=== PATIENT | male | born 1940 | race Caucasian/White ===

== ENCOUNTER 2019-10-23 10:38 | Emergency (ER) | payer MEDICARE, OTHER, SELFPAY ==
[2019-10-23 11:03] VITALS: BP 150/68; PULSE 58; RESP 17; TEMP 36.3; O2SAT 99; BMI 31.7
--- NOTE | 2019-10-23 12:13 | ED_ITS ---
HPI - Skin/Abscess/Foreign Bdy <NYA Cárdenas - Last Filed: 10/23/19 13:27> General Chief complaint: Skin/Abscess/Foreign Body Stated complaint: blister sores spreading x3 days Time Seen by Provider: 10/23/19 11:08 Source: patient Mode of arrival: Family Vehicle Limitations: no limitations History of Present Illness HPI narrative: 79yo male presents to the emergency department for a rash to his left groin that started approximately 48 hours ago. He reports occasional pruritus with this rash and reports blisters that appeared. He states he believes this is shingles. He reports having chickenpox in the past. He denies any other symptoms such as numbness, tingling, pain, fevers, malaise, nausea, vomiting, diarrhea, fatigue, or any other concerns. Patient states ? I got the old shingles shot but didn't get the new one. Patient states he is originally from [place] and sees a primary care provider in that state, use here for the next 3 weeks. Related Data Previous Rx's Medication Instructions Recorded valacyclovir 1,000 mg PO Q8H 7 Days #21 tab 10/23/19 Allergies Allergy/AdvReac Type Severity Reaction Status Date / Time Penicillins Allergy Unknown Verified 10/23/19 11:08 Review of Systems <NYA Cárdenas - Last Filed: 10/23/19 13:27> Review of Systems Narrative: REVIEW OF SYSTEMS: GENERAL: Denies fever or chills. HENT: Denies headaches or rhinorrhea. EYE: Denies vision changes. MUSCULOSKELETAL: Denies trauma or pain. INTEGUMENTARY: Reports rash, see HPI. Patient History <NYA Cárdenas - Last Filed: 10/23/19 13:27> Medical History Varicella (Acute) Social History Smoking Status: Former smoker Smoking Status: Former smoker alcohol intake frequency: 0-2 drinks per day Substance Use Type: does not use Exam <NYA Cárdenas - Last Filed: 10/23/19 13:27> Initial Vital Signs Initial Vital Signs: Vital Signs Temperature 97.3 F L 10/23/19 11:03 Pulse Rate 58 L 10/23/19 11:03 Respiratory Rate 17 10/23/19 11:03 Blood Pressure 150/68 H 10/23/19 11:03 Pulse Oximetry 99 10/23/19 11:03 PHYSICAL EXAMINATION: GENERAL: Alert, and cooperative. Answers questions promptly and appropriately. HENT: Normocephalic, atraumatic. RESPIRATORY: Normal respiratory rate, trachea midline, airway patent. No s tridor, nasal flaring or accessory muscle use. MUSCULOSKELETAL: Normal gait and coordination. Equal tone and mass bilaterally. EXTREMITIES: CMS intact. Moves all extremities. SKIN: Warm, dry, soft, appropriate color for ethnicity. Patches of multiple Vesicles noted on a erythematous-dark purple base on the upper thigh and superior part of groin following L1 dermatome possibly a small amounts extends to superior aspect of L2 dermatome. Rash is unilateral and does not cross midline. No vesicles noted on penis. Clear fluid filled vesicles were swabbed and a culture was sent to lab. No increased temp or tenderness to palpation of this area. NEURO: Alert and Oriented X 3. Good coordination. PSYCH: Appropriate affect and mood. <Clyde Connolly MD - Last Filed: 10/26/19 07:33> Initial Vital Signs Initial Vital Signs: Vital Signs Temperature 97.3 F L 10/23/19 11:03 Pulse Rate 58 L 10/23/19 11:03 Respiratory Rate 17 10/23/19 11:03 Blood Pressure 150/68 H 10/23/19 11:03 Pulse Oximetry 99 10/23/19 11:03 Course <NYA Cárdenas - Last Filed: 10/23/19 13:27> Vital Signs Vital signs: Vital Signs - 8 hr 10/23/19 11:03 Temperature 97.3 F L Pulse Rate 58 L Respiratory Rate 17 Blood Pressure 150/68 H Pulse Oximetry 99 <Clyde Connolly MD - Last Filed: 10/26/19 07:33> Vital Signs Vital signs: Vital Signs - 8 hr 10/23/19 11:03 Temperature 97.3 F L Pulse Rate 58 L Respiratory Rate 17 Blood Pressure 150/68 H Pulse Oximetry 99 MDM - Skin/Abscess/Foreign Bdy <NYA Cárdenas - Last Filed: 10/23/19 13:27> Medical Records Attestation: I reviewed the patient's medical records. Lab Data Attestation: I reviewed the patient's lab results. MDM Narrative Medical decision making narrative: 79-year-old male presenting to the emergency department for rash for the past 48 hours. I suspect this is most likely herpes zoster due to unilateral presentation of rash along the L1 and possibly L2 dermatome, history of previous varicella infection, reports of slight pruritus, vesicular obtained of rash. No concerns for severe rash or lesions seen on genitalia. Patient was prescribed valacyclovir and encouraged to follow-up in 1 week if symptoms continue. Less concern for cellulitis due to lack of increased time, significant erythema, tenderness today palpation, or lack of other symptoms such as fever, tachycardia, malaise, or any other concerns. Culture was sent to lab for confirmation due to slight dark purple discoloration of base of rash which may be related to skin color change in this area. Very strict return precautions given, patient agreed to plan of care verbalized understanding. Discharge Plan Departure Patient Disposition: Home Clinical Impression: Herpes zoster Qualifiers: Herpes zoster complications: without complications Qualified Code(s): B02.9 - Zoster without complications Discharge Date/Time: 10/23/19 11:45 Instructions: DI for Shingles Activity Restrictions/Additional Instructions: Thank you for entrusting me with your care today. As discussed, it appears your rash is most likely shingles. I have given you a prescription for an antiviral. Please keep the area dry and clean. The blisters will eventually drain and starter crust. Keep the area covered and do not touch the area when you are around immunocompromised individuals or women, this decreases the chance of spreading the chickenpox virus that occasionally can be spread from a shingles rash. Please be re-evaluated in 1 week if symptoms continue. Return to the emergency department for any new or worsening symptoms such worsening or spreading of the rash, increased redness, severe pain, fevers, uncontrollable vomiting, or any other concerns. Prescriptions: New valacyclovir 1 gram tablet 1,000 mg PO Q8H 7 Days Qty: 21 RF: 0
== END 2019-10-23 11:45 | disposition home or self-care (01) ==
PROVIDERS: Emergency Provider Nurse Practitioner
DX: B02.9 Zoster without complications (principal)
CPT/HCPCS: 87252; 99281; 99282

== ENCOUNTER → 2022-09-18 13:33 | Outpatient (CLI) | payer MEDICARE, OTHER, SELFPAY ==
--- NOTE | 2022-09-18 13:33 | DI.ECHO.S_ITS ---
[place] [facility]---------+ [facility] +---------+ : : [address] : : : : [id number] : : : : Phone: [phone]+ Echocardiogram Report + + :Name: AURORA FUNG Study Date: 09/18/2022 Height: 68 in : :[facility] ReadingLocation: Weight: 235 lb : : Gender: Male BSA: 2.2 m2 : :: 1940 Age: 82 yrs BP: 114/69 mmHg: :Reason For Study: CONGESTIVE HEART FAILURE, ATRIAL : :FIBRILLATION HR: 60 : :Ordering Physician: JASPER ZHAOPerformed By: GUADALUPE KUMARI : :Referring: JASPER ZHAO : + + Interpretation Summary This is a technically difficult study enhanced with Definity echocontrast. Afib with controlled rate and wide QRS complexes. Normal LV size and mild concentric LVH; mild global hypokinesis with EF 40- 45%. There is septal dyssynchrony which in the right clinical setting is due to conduction system disease. Severe LA enlargement and moderate RA enlargement. Mild MAC; otherwise no significant valvular abnormalities. Mildly dilated ascending aorta. PA systolic pressure is estimated at 33 mm Hg assuming RA pressure of 10 mm Hg. No prior study available for comparison. Procedure: A two-dimensional transthoracic echocardiogram with color flow and Doppler was performed. The study quality was technically difficult. There is no prior echocardiogram noted for this patient. A contrast injection of Definity was performed to improve assessment of LV function. The patient was in atrial fibrillation with controlled ventricular rate during the exam. Left Ventricle: The left ventricle is normal in size. Left ventricular wall thickness is mildly increased. Left ventricular systolic function is borderline reduced. The ejection fraction is estimated to be 40-45%. Right Ventricle: The right ventricle is normal size. Right ventricular systolic function is moderately reduced. Atria: The left atrium is severely dilated. The right atrium is moderately dilated. There is no Doppler evidence for an interatrial shunt. Mitral Valve: There is mild mitral annular calcification. There is mild mitral regurgitation. Aortic Valve: The aortic valve is trileaflet. The aortic valve is mildly calcified. There is no aortic valve stenosis. No aortic regurgitation is present. Tricuspid Valve: The tricuspid valve is normal. There is mild tricuspid regurgitation. Right ventricular systolic pressure is at least 23 mmHg plus right atrial pressure. Pulmonic Valve: The pulmonic valve leaflets are thin and pliable; valve motion is normal. There is mild pulmonic regurgitation. Great Vessels: The aortic root is mildly dilated. The ascending aorta is mildly enlarged. The inferior vena cava was not visualized. Pericardium/ Pleura There is a trivial pericardial effusion noted. There is no pleural effusion. MMode/2D Measurements & Calculations LVIDd: 5.7 cm LVOT diam: 2.0 cm LVIDs: 4.5 cm Ao root diam: 3.7 cm FS: 21.1 % asc Aorta Diam: 4.0 cm IVSd: 1.1 cm LVPWd: 1.2 cm LV guerra. diameter/BSA (cm/m^2): 2.6 LV sys. diameter/BSA (cm/m^2): 2.1 LA A4 area: 34.0 cm2 LVLs ap4: 8.0 cm LVLd ap2: 7.9 cm LVLs ap2: 6.8 cm Doppler Measurements & Calculations Ao V2 max: 142.0 cm/sec LVOT Max Andrew: 99.9 cm/sec Ao V2 mean: 99.7 cm/sec LV V1 max P.0 mmHg Ao max P.1 mmHg LV V1 VTI: 22.4 cm Ao mean P.0 mmHg BLANCA(I,D): 2.3 cm2 Ao V2 VTI: 30.7 cm BLANCA(V,D): 2.2 cm2 sev ratio: 0.73 BLANCA indexed to BSA (cm^2/m^2): 1.0 MV E max andrew: 99.8 cm/sec TR max andrew: 239.0 cm/sec Lat Peak E' Andrew: 3.3 cm/sec TR max P.8 mmHg E/E' lat: 30.1 PA V2 max: 96.1 cm/sec MV dec time: 0.24 sec PA V2 mean: 69.6 cm/sec PA mean P.0 mmHg PA pr(Accel): 14.2 mmHg SV(LVOT): 70.4 ml AV VR_phl: 0.70 BLANCA(VTI)/BSA_phl: 1.1 MV P1/2t-pr_phl: 70.0 msec Electronically signed by: Michelle Delgado M.D. on [place] Physician:09/19/2022 01:19 AM
== END ==
PROVIDERS: PCP Family Medicine; Referring Provider Family Medicine; Visit Provider Family Medicine
DX: I48.91 Unspecified atrial fibrillation (principal); I50.9 Heart failure, unspecified; I08.1 Rheumatic disorders of both mitral and tricuspid valves; I77.810 Thoracic aortic ectasia; I77.89 Other specified disorders of arteries and arterioles
CPT/HCPCS: 93306

== ENCOUNTER → 2022-10-06 15:01 | Outpatient (CLI) | payer MEDICARE, OTHER, SELFPAY ==
[2022-10-06 15:59] LABS: Add Manual Diff / Slide Review NO; Basophils Absolute Auto 100 /uL (0-100); Eosinophils Absolute Auto 100 /uL (0-450); Hematocrit 42.3 % (41-53); Hemoglobin 14.6 g/dL (13.5-17.5); Lymphocytes Absolute Auto 900 /uL (1100-4500); Mean Corpuscular HGB Conc 34.5 % (30-36); Mean Corpuscular Hemoglobin 31.8 PG (26-34); Mean Corpuscular Volume 92.3 fL (80-100); Monocytes Absolute Auto 900 /uL (0-900); Monocytes Percent Auto 14.1 % (3-14); Neutrophils Absolute Auto 4400 /uL (1500-7000); Neutrophils Percent Auto 68.9 % (50-75); Platelet Count 132 X10^3/uL (150-400); Red Blood Cell Count 4.58 X10^6/uL (4.5-5.9); Red Cell Distribution Width 14.5 % (11.6-14.8); White Blood Cell Count 6.4 X10^3/uL (4.5-11.0)
[2022-10-06 16:06] LABS: BUN Creatinine Ratio 23.4 (6-22); Blood Urea Nitrogen 15 mg/dL (9-20); Calcium 10.2 mg/dL (8.4-10.2); Carbon Dioxide 29 mmol/L (22-32); Chloride 101 mmol/L (98-107); Estimated Glomerular Filt Rate > 60 mL/min (>60); Glucose 98 mg/dL (80-110); HEMOLYSIS < 15 (0-50); Potassium 3.7 mmol/L (3.4-5.1); Sodium 136 mmol/L (137-145)
[2022-10-06 16:08] LABS: Alanine Aminotransferase 24 IU/L (<50); Albumin 4.1 g/dL (3.5-5.0); Albumin Globulin Ratio 1.5 (1.0-2.8); Alkaline Phosphatase 118 U/L (38-126); Aspartate Aminotransferase 28 IU/L (17-59); BUN Creatinine Ratio 23.8 (6-22); Bilirubin Total 1.7 mg/dL (0.2-1.3); Blood Urea Nitrogen 15 mg/dL (9-20); Calcium 10.3 mg/dL (8.4-10.2); Carbon Dioxide 29 mmol/L (22-32); Chloride 101 mmol/L (98-107); Estimated Glomerular Filt Rate > 60 mL/min (>60); Globulin 2.7 g/dL (1.7-4.1); Glucose 98 mg/dL (80-110); HEMOLYSIS < 15 (0-50); Potassium 3.9 mmol/L (3.4-5.1); Sodium 137 mmol/L (137-145); Total Protein 6.8 g/dL (6.3-8.2)
[2022-10-06 16:38] LABS: Prostate Specific Antigen < 0.064 ng/mL (0.10-4.00)
[2022-10-07 23:23] LABS: x Labcorp Estim. Avg Glu (eAG) 111 mg/dL (.); x Labcorp Hemoglobin A1c 5.5 % (4.8-5.6)
== END ==
PROVIDERS: PCP Family Medicine; Referring Provider Urology; Visit Provider Urology
DX: C67.9 Malignant neoplasm of bladder, unspecified (principal); N99.89 Other postprocedural complications and disorders of genitourinary system; N39.3 Stress incontinence (female) (male); I50.9 Heart failure, unspecified; E78.5 Hyperlipidemia, unspecified; I10 Essential (primary) hypertension; I48.91 Unspecified atrial fibrillation; J44.9 Chronic obstructive pulmonary disease, unspecified; Z85.46 Personal history of malignant neoplasm of prostate; Z96.0 Presence of urogenital implants; Z86.03 Personal history of neoplasm of uncertain behavior; Z90.79 Acquired absence of other genital organ(s)
CPT/HCPCS: 36415; 80048; 80053; 81002; 83036; 84153; 85025; 99214

== ENCOUNTER → 2022-10-15 10:09 | Outpatient (CLI) | payer MEDICARE, OTHER, SELFPAY ==
--- NOTE | 2022-10-15 10:11 | DI.CT.S_ITS ---
PROCEDURE: CT ABDOMEN PELVIS WO/W CON INDICATIONS: Bladder cancer/history of prostate cancer TECHNIQUE: Optional 5 mm thick noncontrast images acquired from the diaphragm to the symphysis pubis. After the administration of intravenous contrast, 5 mm thick images acquired from the diaphragm to the symphysis pubis after a 10-minute delay. 2 mm thick coronal and sagittal reformats were then performed of the kidneys and ureters. For radiation dose reduction, the following was used: automated exposure control, adjustment of mA and/or kV according to patient size. COMPARISON: None. FINDINGS: Image quality: Excellent. Lung bases: Lung bases are clear. Heart size is enlarged. Urinary system: Both kidneys are normal in size, without hydronephrosis or nephrolithiasis on pre-contrast images. No perinephric fat stranding. There is normal bilateral renal enhancement. No complex renal cystic lesions which require follow-up. Renal calyces appear normal in morphology when filled with contrast. Opacified portions of both ureters demonstrate normal caliber. Bladder wall thickness is normal. No calcified bladder stones. Other solid organs: Liver is normal in size and enhancement. Gallbladder is absent . Biliary system is non dilated. Pancreas enhances normally. 1.5 cm pancreatic cystic lesions with peripheral calcifications in the tail (series 3, image 61); no associated pancreatic ductal dilation Spleen is normal in size and enhancement. Calcified splenic granuloma. No adrenal nodules. Peritoneum and bowel: Bowel loops demonstrate normal wall thickness and caliber. No free fluid or air. Colonic diverticulosis without evidence of diverticulitis. Nodes and vessels: No retroperitoneal or mesenteric adenopathy by size criteria. Aorta and inferior vena cava are normal in size. Abdominal wall: No ventral hernias. Pelvis: No pathologic free pelvic fluid. Moderate left inguinal hernia containing fat. Fluid reservoir in the anterior right lower pelvis. Prostate is absent versus atrophic. Bones: No suspicious bony lesions. No vertebral body compression fractures. IMPRESSION: No filling defect within the opacified renal collecting systems. 1.5 cm pancreatic cystic lesion with peripheral calcifications but no associated pancreatic ductal dilation. 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 Recommend MRI with contrast/MRCP for further characterization. Moderate left inguinal hernia containing fat. Dictated by: Dylon Earl M.D. on 10/15/2022 at 14:19 Approved by: Dylon Earl M.D. on 10/15/2022 at 14:27
== END ==
PROVIDERS: PCP Family Medicine; Referring Provider Urology; Visit Provider Urology
DX: C67.9 Malignant neoplasm of bladder, unspecified (principal); K86.2 Cyst of pancreas; K40.90 Unilateral inguinal hernia, without obstruction or gangrene, not specified as recurrent; Z85.46 Personal history of malignant neoplasm of prostate; Z98.890 Other specified postprocedural states; Z86.79 Personal history of other diseases of the circulatory system; Z90.79 Acquired absence of other genital organ(s)
CPT/HCPCS: 74178; Q9967

== ENCOUNTER → 2022-10-31 11:29 | Outpatient (CLI) | payer MEDICARE, OTHER, SELFPAY ==
[2022-10-31 12:20] LABS: BUN Creatinine Ratio 33.8 (6-22); Blood Urea Nitrogen 24 mg/dL (9-20); Calcium 10.3 mg/dL (8.4-10.2); Carbon Dioxide 29 mmol/L (22-32); Chloride 99 mmol/L (98-107); Estimated Glomerular Filt Rate > 60 mL/min (>60); Glucose 151 mg/dL (80-110); HEMOLYSIS < 15 (0-50); Potassium 3.5 mmol/L (3.4-5.1); Sodium 135 mmol/L (137-145)
== END ==
PROVIDERS: PCP Family Medicine; Referring Provider Internal Medicine; Visit Provider Internal Medicine
DX: I48.20 Chronic atrial fibrillation, unspecified (principal)
CPT/HCPCS: 36415; 80048

== ENCOUNTER 2022-12-01 06:18 | Day surgery (SDC) | payer MEDICARE, OTHER, SELFPAY ==
[2022-11-19 13:24] VITALS: BMI 37.5
[2022-12-01] VITALS (8 sets, daily range): BP systolic 115–159; BP diastolic 56–96; PULSE 60–80; RESP 10–16; TEMP 36.2–36.6; O2SAT 98–100; BMI 37.5
--- NOTE | 2022-12-01 | PATH_ITS ---
[facility] Accession Number: [id number] No. of containers..01 Tissue . 01 Material submitted: . bladder - BLADDER TUMOR . 01 Diagnosis: Urinary Bladder, Biopsy: Extensive squamous metaplasia, mild chronic inflammation, and reactive epithelial atypia. Negative for dysplasia, neoplasia, and malignancy. [facility] 12/11/2022 1141 Local . 01 Comment: Initial and deeper sections are obtained and reviewed. This case is also reviewed by Dr. Gisela Rios, who concurs with the given interpretation. . 01 Electronically signed: . Madelyn Botello MD, Pathologist NPI- [id number] . 01 Gross description: . BLADDER TUMOR: Received in formalin are fragments of owen, soft tissue measuring 0.4 x 0.2 x 0.2 cm submitted entirely in 1 cassette(s) /[facility] 12/11/2022 1143 Local . 01 Pathologist provided ICD-10: N32.9 . 01 CPT . 840898 Performed at: 01 [facility] [address] [place] [address], [place], [place] [id number] MD Obdulio Miles MD Phone: [phone]
[2022-12-01] MEDS: LACTATED RINGERS 1,000 ML 100 ML IV (07:00)
--- NOTE | 2022-12-01 07:40 | PM.PREOP ---
Pre-operative Note COVID-19 COVID-19 status: Not tested Criteria for continued procedure: Delay expected to result in less-positive ultimate med/surg outcome and Non-surgical alternatives not available or appropriate per current SOC Interval Note History & Physical reviewed/Exam performed by Physician: Yes Changes to H&P: No
--- NOTE | 2022-12-01 07:44 | SUR.PREOP ---
ABBOT REP TO BE HERE AT 0800 TO REPROGRAM DEF/PACEMAKER. DR URIBE AND ANESTHESIA AWARE
--- NOTE | 2022-12-01 08:16 | SUR.PREOP ---
8335 ABBOT REP HERE. AWAITING TO GO TO OR.
[2022-12-01] MEDS: CIPROFLOXACIN 400 MG/200 ML PIGGYBACK 200 MG IV (08:30)
--- NOTE | 2022-12-01 08:52 | SUR.OPER ---
Addendum entered by Bharat Crawford R.N. 12/01/22 08:55: with additional delay from pacemaker radiation therapy technician not being in hospital Original Note: Lithotomy on padded OR bed, head on pillow, arms secured on padded arm boards at <90 degrees abduction. Legs secured in padded yellow fins stirrups.
[2022-12-01] MEDS: WATER FOR INJECTION,STERILE 20 ML, mitoMYcin 20 MG INTRAVESIC (09:08)
--- NOTE | 2022-12-01 09:12 | PM.OP.1 ---
Procedure & Clinicians Procedure: Transurethral resection of bladder tumor medium with fulguration and destruction of other papillary urothelial carcinoma placement of Ferreira catheter and instillation of mitomycin C Same procedure as scheduled: Yes Indications: This is an 82-year-old male with a known history of urothelial carcinoma. He presented to the office for surveillance cystoscopy and was found to have recurrence. Patient also has a history of prostate carcinoma and radical prostatectomy. Patient also suffers from stress urinary incontinence which is treated by artificial urinary sphincter. The patient presents this time for Transurethral resection of bladder tumor medium and fulguration and destruction of other small papillary lesions within the bladder. Patient also presents for instillation of mitomycin C. Surgeon: Reggie Estevez Click Yes if Unassisted: Yes Anesthesia Type: General Operative Notes Findings: Artificial urinary sphincter is noted in place and is deactivated and remained deactivated throughout the case and after the case. The urethra is otherwise normal along its length his [place] sphincter was coapted. Prostate was surgically absent. Ureteral orifices were in approximately normal position with clear efflux. On the bladder floor at approximately the 6 to 7 o'clock position there was a 2 cm papillary lesion. On the posterior left there were 2 separate areas of early papillary lesions which were destroyed on the anterior right bladder there was another papillary lesion which was also destroyed. There were no other lesions noted. Ureteral orifices were in again normal position with clear efflux. A 14 [place] 5 cc Ferreira catheter was left in place with 14 cc in the balloon and the 20 cc of mitomycin had been instilled. At the end of the procedure the urethra was once again visualized with the [address] [place] scope and the mucosa was intact throughout the urethra no evidence of erosion of the artificial urinary sphincter and hemostasis was good. Closure Type: not applicable Specimen(s): other (Few small fragments were collected and sent) Applied: catheter ([address] [place] [address]reira catheter with 14 cc in the balloon) Estimated Blood Loss (mL): 0 Blood products transfused: none Procedure in detail: Procedure in detail: After informed consent was obtained, the patient was identified and brought to the operating room worries placed in a supine position on the table. Patient then had anesthesia induced and maintained. Ensuring an adequate level of anesthesia patient was transitioned to the lithotomy position where he was prepped, draped, prepared for Transurethral procedure. After prepping, draping, deactivating his sphincter and time-out as well as ensuring an adequate level of anesthesia a 17 [place] cystoscope was passed through the urethra and into the bladder where cystoscopy was performed with the 30 and 70 degree lens. The continuous-flow resectoscope was then exchanged under direct vision and passed into the bladder. Then using the button the smaller lesions were destroyed. The loop was then inserted and the larger tumor in the bladder floor was resected. The button was once again reinserted and the base and margins were fulgurated and destroyed. The bladder was evacuated in the small fragments were cleared from the bladder and collected. These were sent to pathology for pathologic examination. The bladder was left full and the resectoscope removed. The [address] [place] cystoscope was once again reinserted in the urethra and bladder re visualized. A favorable findings were noted at this point the bladder was left full the scope was removed and the [address] [place] catheter was passed without resistance into the bladder with the balloon was filled with 14 cc of sterile water and the bladder was drained. The patient then had mitomycin instilled via the chemotherapy catheter plug. This was left in place again the pump was reinspected the catheter in place and the sphincter clearly deactivated. Patient was awakened at this point transferred to the postanesthesia care unit having tolerated the procedure well. There were no complications Complications: none Post-operative Condition: stable Disposition: PACU Plan for aftercare: Patient to be discharged to home to follow-up my office morning for voiding trial and reactivation of his artificial urinary sphincter.
[2022-12-01] MEDS: OXYCODONE/ACETAMINOPHEN 5/325 TABLET 1 TAB PO (09:43)
== END 2022-12-01 11:43 | disposition home or self-care (01) ==
PROVIDERS: PCP Family Medicine; Referring Provider Urology; Visit Provider Urology
PROC: 0TBB8ZZ Excision of Bladder, Via Natural or Artificial Opening Endoscopic (ICD-10-PCS; CPT 52235; principal; 2022-12-01 07:45)
DX: N32.89 Other specified disorders of bladder (principal); N30.20 Other chronic cystitis without hematuria; N39.3 Stress incontinence (female) (male); Z85.46 Personal history of malignant neoplasm of prostate; Z96.0 Presence of urogenital implants; Z79.01 Long term (current) use of anticoagulants
CPT/HCPCS: 52235; J0744; J2405; J2704; J3010; J9280

== ENCOUNTER → 2022-12-11 09:34 | Outpatient (CLI) | payer MEDICARE, OTHER, SELFPAY | PROVIDERS: PCP Family Medicine; Visit Provider Urology | DX: C67.9 Malignant neoplasm of bladder, unspecified (principal); N99.89 Other postprocedural complications and disorders of genitourinary system; N39.3 Stress incontinence (female) (male); Z96.0 Presence of urogenital implants; Z85.46 Personal history of malignant neoplasm of prostate; Z98.890 Other specified postprocedural states; Z86.03 Personal history of neoplasm of uncertain behavior | CPT/HCPCS: 51798; 81002; 87086 ==

== ENCOUNTER → 2022-12-31 09:29 | Outpatient (CLI) | payer MEDICARE, OTHER, SELFPAY | PROVIDERS: PCP Family Medicine; Visit Provider Urology | DX: C67.9 Malignant neoplasm of bladder, unspecified (principal); N99.89 Other postprocedural complications and disorders of genitourinary system; N39.3 Stress incontinence (female) (male); R82.81 Pyuria; Z96.0 Presence of urogenital implants; Z86.03 Personal history of neoplasm of uncertain behavior; Z85.46 Personal history of malignant neoplasm of prostate; Z90.79 Acquired absence of other genital organ(s) | CPT/HCPCS: 81002; 87077; 87086; 87186; 99213 ==

== ENCOUNTER → 2023-01-08 11:07 | Outpatient (CLI) | payer MEDICARE, OTHER, SELFPAY ==
[2023-01-08 13:44] LABS: Blood Urea Nitrogen 17 mg/dL (9-20); Calcium 9.6 mg/dL (8.4-10.2); Carbon Dioxide 30 mmol/L (22-32); Chloride 97 mmol/L (98-107); Estimated Glomerular Filt Rate > 60 mL/min (>60); Glucose 91 mg/dL (80-110); HEMOLYSIS < 15 (0-50); Potassium 3.7 mmol/L (3.4-5.1); Sodium 136 mmol/L (137-145)
== END ==
PROVIDERS: PCP Family Medicine; Referring Provider Internal Medicine; Visit Provider Internal Medicine
DX: I48.20 Chronic atrial fibrillation, unspecified (principal)
CPT/HCPCS: 36415; 80048

== ENCOUNTER → 2023-01-27 06:59 | Outpatient (CLI) | payer MEDICARE, OTHER, SELFPAY ==
[2023-01-27 07:50] LABS: Hemoglobin A1C% w Est Avg Glu 5.2 % (4.0-6.0)
[2023-01-27 08:25] LABS: BUN Creatinine Ratio 28.6 (6-22); Blood Urea Nitrogen 20 mg/dL (9-20); Calcium 10.1 mg/dL (8.4-10.2); Carbon Dioxide 33 mmol/L (22-32); Chloride 100 mmol/L (98-107); Cholesterol 118 mg/dL (140-199); Estimated Glomerular Filt Rate > 60 mL/min (>60); Glucose 106 mg/dL (80-110); HDL Cholesterol 39 mg/dL (40-60); HEMOLYSIS < 15 (0-50); LDL Cholesterol Calculated 64 mg/dL (<100); Potassium 4.3 mmol/L (3.4-5.1); Sodium 137 mmol/L (137-145); Triglycerides 74 mg/dL (35-150)
== END ==
PROVIDERS: PCP Family Medicine; Referring Provider Internal Medicine; Visit Provider Internal Medicine
DX: I25.5 Ischemic cardiomyopathy (principal); E78.5 Hyperlipidemia, unspecified; I10 Essential (primary) hypertension; I48.91 Unspecified atrial fibrillation; I50.9 Heart failure, unspecified; J44.9 Chronic obstructive pulmonary disease, unspecified
CPT/HCPCS: 36415; 80048; 80061; 83036

== ENCOUNTER → 2023-01-29 07:53 | Outpatient (CLI) | payer MEDICARE, OTHER, SELFPAY ==
--- NOTE | 2023-01-29 | DI.ECHO.S_ITS ---
[place] [facility] +---------+ : : [address] : [place] : : : : [id number] : : : : Phone: [phone]+ Echocardiogram Report + + :Name: AURORA FUNG Study Date: 01/29/2023 Height: 69 in : :[facility] ReadingLocation: Weight: 230 lb : : Gender: Male BSA: 2.2 m2 : :: 1940 Age: 82 yrs BP: 131/76 mmHg: :Reason For Study: ISCHEMIC CARDIOMYOPATHY : :Ordering Physician: CASEY, : :LUTHER Performed By: Delmy Bowers : :Referring: LUTHER PEÑA : + + Interpretation Summary Atrial fibrillation with controlled ventricular response and wide QRS complexes. Normal LV size and borderline increased wall thickness. There is borderline global hypokinesis. EPSS is 1.3 cm consistent with mild cardiomyopathy. Ejection fraction is estimated at 45-50%. Estimated pulmonary artery systolic pressure is 22 mmHg assuming right atrial pressure of 3 mmHg. Compared to prior study obtained in August, LV is more dynamic. Procedure: A two-dimensional transthoracic echocardiogram with color flow and Doppler was performed. The study quality was technically adequate. There is a prior study dated September 18, 2022 available for comparison. The patient has a paced rhythm. The heart rate ranged between 60-62 bpm during the study. Left Ventricle: The left ventricle is normal in size. Left ventricular wall thickness is borderline increased. The ejection fraction is estimated to be 45-50%. Right Ventricle: There is a pacemaker lead in the right ventricle. Tricuspid Valve: The tricuspid valve is normal in structure and function. There is mild tricuspid regurgitation. Great Vessels: The IVC is of normal diameter and collapses greater than 50% with a sniff. This suggests a low right atrial pressure of 3 mm Hg. Pericardium/ Pleura There is no pericardial effusion. There is no pleural effusion. MMode/2D Measurements & Calculations LVIDd: 5.9 cm IVC diam: 1.3 cm LVIDs: 4.5 cm FS: 24.8 % EPSS: 1.3 cm IVSd: 1.1 cm LVPWd: 0.99 cm LV guerra. diameter/BSA (cm/m^2): 2.7 LV sys. diameter/BSA (cm/m^2): 2.0 Doppler Measurements & Calculations TR max nichole: 219.7 cm/sec TR max P.3 mmHg Electronically signed by: Luther Peña M.D. on [place] Physician:01/31/2023 10:51 AM
== END ==
PROVIDERS: PCP Family Medicine; Referring Provider Internal Medicine; Visit Provider Internal Medicine
DX: I07.1 Rheumatic tricuspid insufficiency (principal); I25.5 Ischemic cardiomyopathy
CPT/HCPCS: 93307

== ENCOUNTER 2023-03-14 16:46 | Inpatient (IN) | payer MEDICARE, OTHER, SELFPAY ==
[2023-03-14] VITALS (57 sets, daily range): BP systolic 95–145; BP diastolic 47–77; PULSE 59–63; RESP 10–24; TEMP 36.4–38.5; O2SAT 94–100; BMI 35.4; BMI 35.1
--- NOTE | 2023-03-14 17:05 | DI.RAD.S_ITS ---
PROCEDURE: XR CHEST 2V INDICATIONS: Infectious workup + tachypnea TECHNIQUE: 2 views of the chest were acquired. COMPARISON: None. FINDINGS: Surgical changes and devices: An AICD is seen. Post CABG changes are seen. Lungs and pleura: An incomplete inspiratory result is noted, causing a crowded appearance to the lung markings. No focal infiltrates are seen. No pneumothorax or significant pleural effusions are seen. Mediastinum: Mediastinal contours are normal. Heart size is moderately enlarged. Bones and chest wall: No suspicious bony abnormalities. Age-appropriate bony degenerative changes are seen. Soft tissues appear unremarkable. IMPRESSION: Low lung volumes, without focal infiltrates. Moderate cardiomegaly. Postoperative and degenerative changes are seen. Dictated by: Satnam Moore M.D. on 03/14/2023 at 16:57 Approved by: Satnam Moore M.D. on 03/14/2023 at 16:58
--- NOTE | 2023-03-14 17:08 | ED.SEPSIS ---
HPI - Sepsis <Jordan Julien PA-C - Last Filed: 03/14/23 20:50> General Chief Complaint: Weakness Mode of arrival: Wheelchair Source: patient Evaluation Sepsis Screen: Possible Sepsis Risk Sepsis Infection Criteria Present: Suspected New Infection Narrative: This is an 82-year-old male presents emergency department complaining of 3 days of fatigue, mild weakness and ?not feeling well?. He also reports some mild rhinorrhea. Denies any significant chest pain, shortness of breath, abdominal pain. No recorded fevers at home but does state that he has ?felt hot?. Patient states that he is a history of heart failure, hypertension, 2 CABGs in the past, pacemaker placement. Has been taking his medications as prescribed. Review of Systems <Jordan Julien PA-C - Last Filed: 03/14/23 20:50> Review of Systems Narrative: GENERAL: Reports fatigue and mild weakness, Denies chills, , malaise, fever, sweats. HEENT: Reports rhinorrhea Denies sinus pain, ear pain, sore throat, difficulty swallowing, dizziness. RESPIRATORY: Denies dyspnea, cough, wheezing, hemoptysis, sputum. CARDIOVASCULAR: Denies chest pain, palpitations, orthopnea, edema, GASTROINTESTINAL: Denies nausea, vomiting, abdominal pain, diarrhea, constipation, melena. : Denies dysuria, frequency, incontinence, hematuria, urinary retention. MUSCULOSKELETAL: denies , joint pain, or bony pain SKIN: Denies rash, skin lesions, or other NEUROLOGIC: Denies weakness, headache, numbness, change in speech, confusion, seizures, incoordination. PSYCHIATRIC: No concerning psychosocial issues. 12 point review of systems is negative except for those stated above Patient History <Jordan Julien PA-C - Last Filed: 03/14/23 20:50> Medical History (Updated 03/14/23 @ 20:50 by Jordan Julien PA-C) Sleep apnea (~1997) Asthma (~1992) Rubella Mumps Tinnitus (~1991) Hearing loss (~2010) Cataracts, bilateral (~2021) History of urinary incontinence Skin cancer (~2009) Prostate cancer (~1994) Chronic anticoagulation Stress incontinence after surgical procedure Hx of cardiac pacemaker Hx of malignant neoplasm of prostate History of asthma Atrial fibrillation Hyperlipidemia Bladder cancer (~2003) Benign essential HTN COPD (chronic obstructive pulmonary disease) (~2005) CHF (congestive heart failure) Varicella Surgical History (Updated 11/10/22 @ 20:03 by Sondra Benedict) History of bladder surgery History of cataract removal with insertion of prosthetic lens (~2021) Status post implantation of artificial urinary sphincter History of transurethral resection of bladder tumor (TURBT) Hx of vasectomy History of transurethral resection of prostate History of circumcision Hx of cholecystectomy 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) Status post prostatectomy Family History (Updated 11/10/22 @ 20:06 by Sondra Benedict) Father Cancer CAD (coronary artery disease) Hyperlipidemia Hypertension Mother Diabetes mellitus Hypertension Brother Diabetes mellitus Hypertension Sister Drug abuse Sister COPD (chronic obstructive pulmonary disease) Social History marital status: number of children: 3 household members: none occupational status: other Smoking Status: Former smoker Tobacco: How many years used: 15 alcohol intake: current caffeine: Yes Type(s) of exercise: walking and other Smoking Status: Former smoker alcohol intake frequency: 0-2 drinks per day Substance Use Type: does not use Exam <Jordan Julien PA-C - Last Filed: 03/14/23 20:50> Narrative Exam Narrative: GENERAL: Well-developed patient, in mild distress. HEAD: Atraumatic. Normocephalic. EYES: Pupils equal round and reactive. Extraocular motions intact. No scleral icterus. No injection or drainage. ENT: Nose without bleeding, purulent drainage. Throat without erythema, tonsillar hypertrophy or exudate. Airway patent. NECK: Trachea midline. Non tender CARDIOVASCULAR: Regular rate and rhythm without murmurs, gallops, or rubs. RESPIRATORY: Clear to auscultation. Breath sounds equal bilaterally. No wheezes, rales, or rhonchi. GASTROINTESTINAL: Abdomen soft, non-tender, nondistended. EXTREMITIES: No edema or joint tenderness. BACK: Nontender without deformity or crepitance. No flank tenderness. NEURO: AOx3. SKIN: No rash or erythema of visible areas Initial Vital Signs Initial Vital Signs: Vital Signs Pulse Rate 60 03/14/23 16:52 Blood Pressure 145/66 H 03/14/23 16:52 Pulse Oximetry 94 03/14/23 16:52 <Bharat Gunter DO - Last Filed: 03/14/23 20:56> Initial Vital Signs Initial Vital Signs: Vital Signs Pulse Rate 60 03/14/23 16:52 Blood Pressure 145/66 H 03/14/23 16:52 Pulse Oximetry 94 03/14/23 16:52 Course <Jordan Julien PA-C - Last Filed: 03/14/23 20:50> Orders Ordered: ED Orders 03/14/23 17:05 XR chest 2V Stat 03/14/23 17:07 Complete Blood Count AUTO DIFF Stat Comprehensive Metabolic Panel Stat Lactate (Lactic Acid) Stat NT-proBNP (BNP-Adult 18+) Stat Procalcitonin Stat Respiratory Panel (Film Array) Stat Troponin & CK Cardiac Panel Stat 03/14/23 17:13 Blood Culture Stat 03/14/23 17:36 Urinalysis and Microscopic Stat Urine Culture Stat 03/14/23 17:46 US abdomen limited Stat 03/14/23 18:03 EKG-12 Lead Stat 03/14/23 19:58 Troponin I Stat Apixaban (Apixaban 5 Mg Tablet) 5 mg PO BID DONNY Atorvastatin Calcium (Atorvastatin 20 Mg Tablet) 40 mg PO DAILY DONNY Metoprolol Succinate (Metoprolol Er 50 Mg Tablet) 50 mg PO DAILY DONNY Montelukast Sodium (Montelukast 10 Mg Tablet) 10 mg PO DAILY DONNY Non-Formulary Medication (Omeprazole) 40 mg PO DAILY DONNY Potassium Chloride (Potassium Chloride 20 Meq Tab) 60 meq PO DAILY DONNY Discontinued Medications Furosemide (Furosemide 40 Mg/4 Ml Vial) 20 mg IV NOW ONE Stop: 03/14/23 20:38 Last Admin: 03/14/23 20:42 Dose: Not Given Documented By: Furosemide (Furosemide 40 Mg/4 Ml Vial) 40 mg IV NOW ONE Stop: 03/14/23 20:42 Last Admin: 03/14/23 20:47 Dose: 40 mg Documented By: Sodium Chloride (Normal Saline 0.9%) 2,052 mls @ 684 mls/hr 30 ml/kg infuse over 3 hr (2052 ml) IV NOW ONE Stop: 03/14/23 20:12 Last Infusion: 03/14/23 20:39 Dose: Infused Documented By: Admin: 03/14/23 17:46 Dose: 684 mls/hr Documented By: RB Ceftriaxone Sodium 2,000 mg/ (Sodium Chloride) 100 mls @ 200 mls/hr IV NOW ONE Stop: 03/14/23 17:14 Last Infusion: 03/14/23 18:18 Dose: Infused Documented By: Admin: 03/14/23 17:47 Dose: 200 mls/hr Documented By: RB Reevaluation(s) Reevaluation #1: [id number]: Sepsis protocol initiated and Sepsis fluids started based on ideal body weight has patient had a BMI over 35. Consultations Consultation #1: [id number]: Patient's pacemaker was interrogated and heard what from pacemaker patient registration representative that there were no malfunctions or recent episodes of anything else abnormal. Vital Signs Vital signs: Vital Signs - 8 hr 03/14/23 16:52 03/14/23 16:52 03/14/23 16:56 Temperature 101.3 F H Pulse Rate 60 60 Respiratory Rate 24 Blood Pressure 145/66 H 145/66 H Pulse Oximetry 94 94 Oxygen Delivery Method Room Air 03/14/23 17:00 03/14/23 17:00 03/14/23 17:15 Temperature Pulse Rate 60 60 Respiratory Rate 24 16 Blood Pressure 129/60 Pulse Oximetry 95 95 Oxygen Delivery Method 03/14/23 17:19 03/14/23 17:19 03/14/23 17:37 Temperature Pulse Rate 60 60 Respiratory Rate 18 Blood Pressure 128/70 Pulse Oximetry 95 Oxygen Delivery Method Room Air 03/14/23 17:39 03/14/23 17:39 03/14/23 17:40 Temperature Pulse Rate 60 60 Respiratory Rate 19 15 Blood Pressure 108/54 L Pulse Oximetry Oxygen Delivery Method 03/14/23 17:45 03/14/23 17:50 03/14/23 17:53 Temperature Pulse Rate 60 60 Respiratory Rate 15 Blood Pressure 102/52 L Pulse Oximetry 95 96 Oxygen Delivery Method 03/14/23 17:53 03/14/23 17:55 03/14/23 17:55 Temperature Pulse Rate 60 60 Respiratory Rate 18 23 Blood Pressure 104/51 L Pulse Oximetry 96 96 Oxygen Delivery Method 03/14/23 17:56 03/14/23 18:00 03/14/23 18:00 Temperature 100.9 F H Pulse Rate 59 L Respiratory Rate Blood Pressure 119/54 L Pulse Oximetry 96 Oxygen Delivery Method 03/14/23 18:05 03/14/23 18:05 03/14/23 18:10 Temperature Pulse Rate 59 L Respiratory Rate 14 Blood Pressure 100/51 L 96/51 L Pulse Oximetry 96 Oxygen Delivery Method 03/14/23 18:10 03/14/23 18:15 03/14/23 18:16 Temperature Pulse Rate 59 L 60 60 Respiratory Rate 10 L 24 20 Blood Pressure Pulse Oximetry 96 95 97 Oxygen Delivery Method 03/14/23 18:16 03/14/23 18:20 03/14/23 18:20 Temperature Pulse Rate 60 Respiratory Rate 11 L Blood Pressure 115/53 L 101/52 L Pulse Oximetry 96 Oxygen Delivery Method 03/14/23 18:25 03/14/23 18:25 03/14/23 18:30 Temperature Pulse Rate 60 Respiratory Rate 18 Blood Pressure 97/49 L 104/51 L Pulse Oximetry 96 Oxygen Delivery Method 03/14/23 18:30 03/14/23 18:35 03/14/23 18:35 Temperature Pulse Rate 60 60 Respiratory Rate 17 14 Blood Pressure 106/55 L Pulse Oximetry 94 97 Oxygen Delivery Method 03/14/23 18:40 03/14/23 18:40 03/14/23 18:45 Temperature Pulse Rate 60 Respiratory Rate 17 Blood Pressure 109/55 L 100/54 L Pulse Oximetry 97 Oxygen Delivery Method 03/14/23 18:45 03/14/23 18:50 03/14/23 18:50 Temperature Pulse Rate 60 60 Respiratory Rate 11 L 12 Blood Pressure 101/52 L Pulse Oximetry 96 94 Oxygen Delivery Method 03/14/23 18:55 03/14/23 18:55 03/14/23 19:00 Temperature Pulse Rate 60 Respiratory Rate 11 L Blood Pressure 101/53 L 95/47 L Pulse Oximetry 95 Oxygen Delivery Method 03/14/23 19:00 03/14/23 19:05 03/14/23 19:05 Temperature Pulse Rate 60 60 Respiratory Rate 12 Blood Pressure 106/55 L Pulse Oximetry 97 96 Oxygen Delivery Method Room Air 03/14/23 19:10 03/14/23 19:10 03/14/23 19:15 Temperature Pulse Rate 60 Respiratory Rate 17 Blood Pressure 99/51 L 106/53 L Pulse Oximetry 95 Oxygen Delivery Method 03/14/23 19:15 03/14/23 19:20 03/14/23 19:20 Temperature Pulse Rate 60 60 Respiratory Rate Blood Pressure 106/77 Pulse Oximetry 95 96 Oxygen Delivery Method 03/14/23 19:25 03/14/23 19:30 03/14/23 19:31 Temperature Pulse Rate 60 61 Respiratory Rate 24 21 Blood Pressure 121/56 L Pulse Oximetry 96 97 Oxygen Delivery Method 03/14/23 19:31 03/14/23 19:35 03/14/23 19:40 Temperature Pulse Rate 60 60 60 Respiratory Rate 16 12 12 Blood Pressure Pulse Oximetry 97 96 96 Oxygen Delivery Method Room Air 03/14/23 19:45 03/14/23 19:50 03/14/23 19:55 Temperature Pulse Rate 60 60 60 Respiratory Rate 18 Blood Pressure Pulse Oximetry 96 98 97 Oxygen Delivery Method 03/14/23 20:00 03/14/23 20:00 03/14/23 20:05 Temperature Pulse Rate 60 60 Respiratory Rate 17 23 Blood Pressure 106/57 L Pulse Oximetry 97 96 Oxygen Delivery Method 03/14/23 20:10 03/14/23 20:15 03/14/23 20:20 Temperature Pulse Rate 60 60 60 Respiratory Rate 19 Blood Pressure Pulse Oximetry 95 96 97 Oxygen Delivery Method 03/14/23 20:27 03/14/23 20:30 03/14/23 20:30 Temperature Pulse Rate 60 60 Respiratory Rate 19 Blood Pressure 118/58 L Pulse Oximetry 97 100 Oxygen Delivery Method <Bharat Gunter, DO - Last Filed: 03/14/23 20:56> Orders Ordered: ED Orders 03/14/23 17:05 XR chest 2V Stat 03/14/23 17:07 Complete Blood Count AUTO DIFF Stat Comprehensive Metabolic Panel Stat Lactate (Lactic Acid) Stat NT-proBNP (BNP-Adult 18+) Stat Procalcitonin Stat Respiratory Panel (Film Array) Stat Troponin & CK Cardiac Panel Stat 03/14/23 17:13 Blood Culture Stat 03/14/23 17:36 Urinalysis and Microscopic Stat Urine Culture Stat 03/14/23 17:46 US abdomen limited Stat 03/14/23 18:03 EKG-12 Lead Stat 03/14/23 19:58 Troponin I Stat Apixaban (Apixaban 5 Mg Tablet) 5 mg PO BID REPLACED BY [facility] Atorvastatin Calcium (Atorvastatin 20 Mg Tablet) 40 mg PO DAILY REPLACED BY [facility] Metoprolol Succinate (Metoprolol Er 50 Mg Tablet) 50 mg PO DAILY REPLACED BY [facility] Montelukast Sodium (Montelukast 10 Mg Tablet) 10 mg PO DAILY DONNY Non-Formulary Medication (Omeprazole) 40 mg PO DAILY DONNY Potassium Chloride (Potassium Chloride 20 Meq Tab) 60 meq PO DAILY DONNY Discontinued Medications Furosemide (Furosemide 40 Mg/4 Ml Vial) 20 mg IV NOW ONE Stop: 03/14/23 20:38 Last Admin: 03/14/23 20:42 Dose: Not Given Documented By: Furosemide (Furosemide 40 Mg/4 Ml Vial) 40 mg IV NOW ONE Stop: 03/14/23 20:42 Last Admin: 03/14/23 20:47 Dose: 40 mg Documented By: Sodium Chloride (Normal Saline 0.9%) 2,052 mls @ 684 mls/hr 30 ml/kg infuse over 3 hr (2052 ml) IV NOW ONE Stop: 03/14/23 20:12 Last Infusion: 03/14/23 20:39 Dose: Infused Documented By: Admin: 03/14/23 17:46 Dose: 684 mls/hr Documented By: RB Ceftriaxone Sodium 2,000 mg/ (Sodium Chloride) 100 mls @ 200 mls/hr IV NOW ONE Stop: 03/14/23 17:14 Last Infusion: 03/14/23 18:18 Dose: Infused Documented By: Admin: 03/14/23 17:47 Dose: 200 mls/hr Documented By: CATHLEEN Vital Signs Vital signs: Vital Signs - 8 hr 03/14/23 16:52 03/14/23 16:52 03/14/23 16:56 Temperature 101.3 F H Pulse Rate 60 60 Respiratory Rate 24 Blood Pressure 145/66 H 145/66 H Pulse Oximetry 94 94 Oxygen Delivery Method Room Air 03/14/23 17:00 03/14/23 17:00 03/14/23 17:15 Temperature Pulse Rate 60 60 Respiratory Rate 24 16 Blood Pressure 129/60 Pulse Oximetry 95 95 Oxygen Delivery Method 03/14/23 17:19 03/14/23 17:19 03/14/23 17:37 Temperature Pulse Rate 60 60 Respiratory Rate 18 Blood Pressure 128/70 Pulse Oximetry 95 Oxygen Delivery Method Room Air 03/14/23 17:39 03/14/23 17:39 03/14/23 17:40 Temperature Pulse Rate 60 60 Respiratory Rate 19 15 Blood Pressure 108/54 L Pulse Oximetry Oxygen Delivery Method 03/14/23 17:45 03/14/23 17:50 03/14/23 17:53 Temperature Pulse Rate 60 60 Respiratory Rate 15 Blood Pressure 102/52 L Pulse Oximetry 95 96 Oxygen Delivery Method 03/14/23 17:53 03/14/23 17:55 03/14/23 17:55 Temperature Pulse Rate 60 60 Respiratory Rate 18 23 Blood Pressure 104/51 L Pulse Oximetry 96 96 Oxygen Delivery Method 03/14/23 17:56 03/14/23 18:00 03/14/23 18:00 Temperature 100.9 F H Pulse Rate 59 L Respiratory Rate Blood Pressure 119/54 L Pulse Oximetry 96 Oxygen Delivery Method 03/14/23 18:05 03/14/23 18:05 03/14/23 18:10 Temperature Pulse Rate 59 L Respiratory Rate 14 Blood Pressure 100/51 L 96/51 L Pulse Oximetry 96 Oxygen Delivery Method 03/14/23 18:10 03/14/23 18:15 03/14/23 18:16 Temperature Pulse Rate 59 L 60 60 Respiratory Rate 10 L 24 20 Blood Pressure Pulse Oximetry 96 95 97 Oxygen Delivery Method 03/14/23 18:16 03/14/23 18:20 03/14/23 18:20 Temperature Pulse Rate 60 Respiratory Rate 11 L Blood Pressure 115/53 L 101/52 L Pulse Oximetry 96 Oxygen Delivery Method 03/14/23 18:25 03/14/23 18:25 03/14/23 18:30 Temperature Pulse Rate 60 Respiratory Rate 18 Blood Pressure 97/49 L 104/51 L Pulse Oximetry 96 Oxygen Delivery Method 03/14/23 18:30 03/14/23 18:35 03/14/23 18:35 Temperature Pulse Rate 60 60 Respiratory Rate 17 14 Blood Pressure 106/55 L Pulse Oximetry 94 97 Oxygen Delivery Method 03/14/23 18:40 03/14/23 18:40 03/14/23 18:45 Temperature Pulse Rate 60 Respiratory Rate 17 Blood Pressure 109/55 L 100/54 L Pulse Oximetry 97 Oxygen Delivery Method 03/14/23 18:45 03/14/23 18:50 03/14/23 18:50 Temperature Pulse Rate 60 60 Respiratory Rate 11 L 12 Blood Pressure 101/52 L Pulse Oximetry 96 94 Oxygen Delivery Method 03/14/23 18:55 03/14/23 18:55 03/14/23 19:00 Temperature Pulse Rate 60 Respiratory Rate 11 L Blood Pressure 101/53 L 95/47 L Pulse Oximetry 95 Oxygen Delivery Method 03/14/23 19:00 03/14/23 19:05 03/14/23 19:05 Temperature Pulse Rate 60 60 Respiratory Rate 12 Blood Pressure 106/55 L Pulse Oximetry 97 96 Oxygen Delivery Method Room Air 03/14/23 19:10 03/14/23 19:10 03/14/23 19:15 Temperature Pulse Rate 60 Respiratory Rate 17 Blood Pressure 99/51 L 106/53 L Pulse Oximetry 95 Oxygen Delivery Method 03/14/23 19:15 03/14/23 19:20 03/14/23 19:20 Temperature Pulse Rate 60 60 Respiratory Rate Blood Pressure 106/77 Pulse Oximetry 95 96 Oxygen Delivery Method 03/14/23 19:25 03/14/23 19:30 03/14/23 19:31 Temperature Pulse Rate 60 61 Respiratory Rate 24 21 Blood Pressure 121/56 L Pulse Oximetry 96 97 Oxygen Delivery Method 03/14/23 19:31 03/14/23 19:35 03/14/23 19:40 Temperature Pulse Rate 60 60 60 Respiratory Rate 16 12 12 Blood Pressure Pulse Oximetry 97 96 96 Oxygen Delivery Method Room Air 03/14/23 19:45 03/14/23 19:50 03/14/23 19:55 Temperature Pulse Rate 60 60 60 Respiratory Rate 18 Blood Pressure Pulse Oximetry 96 98 97 Oxygen Delivery Method 03/14/23 20:00 03/14/23 20:00 03/14/23 20:05 Temperature Pulse Rate 60 60 Respiratory Rate 17 23 Blood Pressure 106/57 L Pulse Oximetry 97 96 Oxygen Delivery Method 03/14/23 20:10 03/14/23 20:15 03/14/23 20:20 Temperature Pulse Rate 60 60 60 Respiratory Rate 19 Blood Pressure Pulse Oximetry 95 96 97 Oxygen Delivery Method 03/14/23 20:27 03/14/23 20:30 03/14/23 20:30 Temperature Pulse Rate 60 60 Respiratory Rate 19 Blood Pressure 118/58 L Pulse Oximetry 97 100 Oxygen Delivery Method Sepsis Evaluation (ED) <Jordan Julien PA-C - Last Filed: 03/14/23 20:50> Triage Screening Sepsis Screen: Possible Sepsis Risk Level 1 - Infection Sepsis Infection Criteria Present: Suspected New Infection Response It is my opinion that his patient have a likely infectious etiology for meeting sepsis criteria: Does Fluid calculation based on 30 mL/kg within 1hr of criteria: IBW used due to BMI>30 Antibiotics initiated within 1 hr of Sepis dx: Yes Tissue Perfusion Reassessed within 6 hrs of infusion start time: Yes Date of Tissue Perfusion Reassessment completed: 03/14/23 Time Tissue Perfusion Reassessment completed: 17:32 MDM - Sepsis <Jordan Julien PA-C - Last Filed: 03/14/23 20:50> Lab Data 03/14/23 17:07 03/14/23 17:07 Labs: Lab Results 03/14/23 03/14/23 03/14/23 Range/Units 17:07 17:36 19:58 WBC 13.9 H (4.5-11.0) X10^3/uL RBC 3.76 L (4.5-5.9) X10^6/uL Hgb 12.2 L (13.5-17.5) g/dL Hct 35.0 L (41-53) % MCV 93.0 (80-100) fL MCH 32.5 (26-34) PG MCHC 35.0 (30-36) % RDW 14.9 H (11.6-14.8) % Plt Count 132 L (150-400) X10^3/uL Neut % (Auto) 77.4 H (50-75) % Lymph % (Auto) 3.7 L (25-40) % [place] % (Auto) 18.5 H (3-14) % Eos % (Auto) 0.0 L (2-4) % Baso % (Auto) 0.4 (0-2) % Neut # (Auto) 61067 H (3081-9147) /uL Lymph # (Auto) 500 L (2365-6864) /uL [place] # (Auto) 2600 H (0-900) /uL Eos # (Auto) 0 (0-450) /uL Baso # (Auto) 100 (0-100) /uL Sodium 132 L (137-145) mmol/L Potassium 3.5 (3.4-5.1) mmol/L Chloride 98 (98-107) mmol/L Carbon Dioxide 25 (22-32) mmol/L BUN 25 H (9-20) mg/dL Creatinine 0.92 (0.66-1.25) mg/dL Estimated GFR > 60 (>60) mL/min BUN/Creatinine Ratio 27.2 H (6-22) Glucose 121 H (80-110) mg/dL Lactate 1.3 (0.7-2.1) mmol/L Calcium 10.4 H (8.4-10.2) mg/dL Total Bilirubin 2.2 H (0.2-1.3) mg/dL AST 25 (17-59) IU/L ALT 17 (<50) IU/L Alkaline Phosphatase 84 (38-126) U/L Total Creatine Kinase 192 H (55-170) U/L Troponin I 0.035 H 0.043 H (0.01-0.034) ng/mL NT-Pro-B Natriuret Pep 2230 H (<450) pg/mL Total Protein 7.1 (6.3-8.2) g/dL Albumin 4.0 (3.5-5.0) g/dL Globulin 3.1 (1.7-4.1) g/dL Albumin/Globulin Ratio 1.3 (1.0-2.8) Procalcitonin 0.66 H (<0.5) ng/mL Urine Color Yellow Urine Appearance Clear Urine pH 5.5 (4.5-8.0) Ur Specific [place] <=1.005 (1.000-1.035) Urine Protein Negative (Negative) Urine Glucose (UA) 3+ H (Negative) g/dL Urine Ketones Trace H (NEGATIVE) Urine Occult Blood 1+ H (Negative) Urine Nitrate Negative (Negative) Urine Bilirubin Negative (NEGATIVE) Urine Urobilinogen 0.2 (0.2) E.U./dL Ur Leukocyte Esterase 1+ H (NEGATIVE) Urine RBC 1-5/hpf (0-5/HPF) Urine WBC 5-10/hpf H (0-5/HPF) Ur Squamous Epith Cells 5-10 /hpf H (0-5/HPF) Urine Bacteria Moderate (10-30) H (None) Ur Culture Indicated? Specimen cultured Chlamy pneumoniae PCR Not detected (Not Detect) Adenovirus (PCR) Not detected (Not Detect) B.parapertussis DNA PCR Not detected (Not Detecte) Coronavirus OC43 (PCR) Not detected (Not Detect) Coronavirus HKU1 (PCR) Not detected (Not Detect) Coronavirus 229E (PCR) Not detected (Not Detect) SARS-CoV-2 (PCR) Detected (Not Detecte) Coronavirus NL63 (PCR) Not detected (Not Detect) Human Metapneumovir PCR Not detected (Not Detect) Influenza Type A (PCR) Not detected (Not Detect) Influenza Type B (PCR) Not detected (Not Detect) M. pneumoniae (PCR) Not detected (Not Detect) Parainfluenza 1 (PCR) Not detected (Not Detect) Parainfluenza 2 (PCR) Not detected (Not Detect) Parainfluenza 3 (PCR) Not detected (Not Detect) Parainfluenza 4 (PCR) Not detected (Not Detect) RSV (PCR) Not detected (Not Detect) Entero/Rhino (PCR) Not detected (Not Detect) Imaging Data Chest x-ray: Radiologist's Impression: [address] [address] XRay Report Signed Patient: Aamir Montelongo MR#: [id number] : 1940 Acct:[id number] Age/Sex: 82 / M Date of Service: 03/14/23 Loc: ED Accession Number: [id number] Procedure: XR chest 2V Ordering Provider: Jordan Julien P.A-C PROCEDURE: XR CHEST 2V INDICATIONS: Infectious workup + tachypnea TECHNIQUE: 2 views of the chest were acquired. COMPARISON: None. FINDINGS: Surgical changes and devices: An AICD is seen. Post CABG changes are seen. Lungs and pleura: An incomplete inspiratory result is noted, causing a crowded appearance to the lung markings. No focal infiltrates are seen. No pneumothorax or significant pleural effusions are seen. Mediastinum: Mediastinal contours are normal. Heart size is moderately enlarged. Bones and chest wall: No suspicious bony abnormalities. Age-appropriate bony degenerative changes are seen. Soft tissues appear unremarkable. IMPRESSION: Low lung volumes, without focal infiltrates. Moderate cardiomegaly. Postoperative and degenerative changes are seen. Dictated by: Satnam Moore M.D. on 03/14/2023 at 16:57 Approved by: Satnam Moore M.D. on 03/14/2023 at 16:58 US - abdomen: Radiologist's Impression: [address] [address] Ultrasound Report Signed Patient: Aamir Montelongo MR#: [id number] : 1940 Acct:[id number] Age/Sex: 82 / M Date of Service: 03/14/23 Loc: ED Accession Number: [id number] Procedure: US abdomen limited Ordering Provider: Jordan Julien P.A-C PROCEDURE: US ABDOMEN LIMITED INDICATIONS: ELEVATED BILIRUBIN. TECHNIQUE: Real-time scanning was performed of the abdominal and retroperitoneal organs, with image documentation. COMPARISON: [facility], CT, CT ABDOMEN PELVIS WO/W CON, 10/15/2022, 11:04. FINDINGS: Liver: Hepatic parenchyma shows diffuse increased echogenicity consistent with fatty infiltration. Evaluation is limited by overlying bowel gas Gallbladder: Cholecystectomy Common Bile Duct: Nonvisualized due to overlying bowel gas Pancreas: Nonvisualized due to overlying bowel gas IMPRESSION: 1. Extremely limited ultrasound of the right upper quadrant. Partially visualized liver suggests hepatic fatty infiltration. 2. 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 Approved by: Javier Cole M.D. on 03/14/2023 at 19:37 ECG Data Interpretation: EKG is ventricularly paced rhythm rhythm rate 60 and free of any signs of ischemia or ectopy. No ST segmental elevation or depression. No T wave inversions MDM Narrative Medical decision making narrative: MDM * differential diagnosis includes but not limited to sepsis secondary to UTI, sepsis secondary to COVID infection, dehydration, URI, pneumonia, acute cholecystitis * Prior records reviewed: Patient was last seen here 3 years ago for herpes zoster. Also had a CT scan of his abdomen and pelvis through his primary care provider 3 months ago which showed 1.5 cm pancreatic cystic lesion with peripheral calcifications but no associated pancreatic ductal dilation. 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 Recommend MRI with contrast/MRCP for further characterization. * My lab interpretation: CBC remarkable for acute leukocytosis of 13.9. Hemoglobin 12.2 although patient does not report any active bleeding. BNP 2 230 as patient does have history of heart failure. Procalcitonin mildly elevated at 0.66. Respiratory panel came back positive for COVID 19. Initial troponin elevated at 0.035 suspect secondary to congestive heart failure. Mild hyponatremia of 132 although patient does not report any symptoms hours result from this. Total bili elevated at 2.2 although also elevated at 1.7 5 months ago. History of cholecystectomy. UA shows evidence of possible UTI. * My imgaing interpretation: Chest x-rays showed no evidence of pneumonia and no significant purulent effusions. Per in shop service technician report no abnormal findings * Clinical Decision Rules/Scores evaluated: Patient met SIRS and sepsis criteria * Independent discussions with: None ED Course: This is a 82-year-old male presents emergency department with a history of heart failure, pacemaker placement, and 2 CABGs, on Eliquis 5 mg b.i.d., diabetes type 2, and presenting to the emergency department due to ?not feeling well? for the last 3 days with some mild weakness and reported decreased blood pressures with systolics in the 80s while using a home blood pressure monitor. As well as URI symptoms. On initial triage patient minutes sepsis criteria and sepsis fluids were given as well as empiric Rocephin. Attempted fluids were calculate did using ideal body weight as BMI was over 30. Complete sepsis workup OH which showed the above findings. Initial troponin was slightly elevated but suspect due to chronic congestive heart failure. Patient's viral testing did come back positive for COVID-19 which may be the source of the patient's sepsis. Urine also showed evidence of UTI which may be a cause of the patient's symptoms. EKG unremarkable. Pacemaker was interrogated and no abnormal findings. Second troponin was ordered which showed very slight elevation to .043. Suspect mild demand ischemia secondary to CHF. Patient was diuresed with Lasix. Right upper quadrant ultrasound was ordered initially to investigate cause of elevated bili but exam was very limited and patient has had a history of cholecystectomy. 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 Discussed the case with Dr. Marce Howard who very kindly accepted the patient for admission. Shared Decision Making: Discussed plan with patient who is comfortable with the plan. Social Considerations: None Disposition: Admit to hospital <Bharat Gunter DO - Last Filed: 03/14/23 20:56> Lab Data Labs: Lab Results 03/14/23 03/14/23 03/14/23 Range/Units 17:07 17:36 19:58 WBC 13.9 H (4.5-11.0) X10^3/uL RBC 3.76 L (4.5-5.9) X10^6/uL Hgb 12.2 L (13.5-17.5) g/dL Hct 35.0 L (41-53) % MCV 93.0 (80-100) fL MCH 32.5 (26-34) PG MCHC 35.0 (30-36) % RDW 14.9 H (11.6-14.8) % Plt Count 132 L (150-400) X10^3/uL Neut % (Auto) 77.4 H (50-75) % Lymph % (Auto) 3.7 L (25-40) % [place] % (Auto) 18.5 H (3-14) % Eos % (Auto) 0.0 L (2-4) % Baso % (Auto) 0.4 (0-2) % Neut # (Auto) 71754 H (6408-6827) /uL Lymph # (Auto) 500 L (9499-8330) /uL [place] # (Auto) 2600 H (0-900) /uL Eos # (Auto) 0 (0-450) /uL Baso # (Auto) 100 (0-100) /uL Sodium 132 L (137-145) mmol/L Potassium 3.5 (3.4-5.1) mmol/L Chloride 98 (98-107) mmol/L Carbon Dioxide 25 (22-32) mmol/L BUN 25 H (9-20) mg/dL Creatinine 0.92 (0.66-1.25) mg/dL Estimated GFR > 60 (>60) mL/min BUN/Creatinine Ratio 27.2 H (6-22) Glucose 121 H (80-110) mg/dL Lactate 1.3 (0.7-2.1) mmol/L Calcium 10.4 H (8.4-10.2) mg/dL Total Bilirubin 2.2 H (0.2-1.3) mg/dL AST 25 (17-59) IU/L ALT 17 (<50) IU/L Alkaline Phosphatase 84 (38-126) U/L Total Creatine Kinase 192 H (55-170) U/L Troponin I 0.035 H 0.043 H (0.01-0.034) ng/mL NT-Pro-B Natriuret Pep 2230 H (<450) pg/mL Total Protein 7.1 (6.3-8.2) g/dL Albumin 4.0 (3.5-5.0) g/dL Globulin 3.1 (1.7-4.1) g/dL Albumin/Globulin Ratio 1.3 (1.0-2.8) Procalcitonin 0.66 H (<0.5) ng/mL Urine Color Yellow Urine Appearance Clear Urine pH 5.5 (4.5-8.0) Ur Specific [place] <=1.005 (1.000-1.035) Urine Protein Negative (Negative) Urine Glucose (UA) 3+ H (Negative) g/dL Urine Ketones Trace H (NEGATIVE) Urine Occult Blood 1+ H (Negative) Urine Nitrate Negative (Negative) Urine Bilirubin Negative (NEGATIVE) Urine Urobilinogen 0.2 (0.2) E.U./dL Ur Leukocyte Esterase 1+ H (NEGATIVE) Urine RBC 1-5/hpf (0-5/HPF) Urine WBC 5-10/hpf H (0-5/HPF) Ur Squamous Epith Cells 5-10 /hpf H (0-5/HPF) Urine Bacteria Moderate (10-30) H (None) Ur Culture Indicated? Specimen cultured Chlamy pneumoniae PCR Not detected (Not Detect) Adenovirus (PCR) Not detected (Not Detect) B.parapertussis DNA PCR Not detected (Not Detecte) Coronavirus OC43 (PCR) Not detected (Not Detect) Coronavirus HKU1 (PCR) Not detected (Not Detect) Coronavirus 229E (PCR) Not detected (Not Detect) SARS-CoV-2 (PCR) Detected (Not Detecte) Coronavirus NL63 (PCR) Not detected (Not Detect) Human Metapneumovir PCR Not detected (Not Detect) Influenza Type A (PCR) Not detected (Not Detect) Influenza Type B (PCR) Not detected (Not Detect) M. pneumoniae (PCR) Not detected (Not Detect) Parainfluenza 1 (PCR) Not detected (Not Detect) Parainfluenza 2 (PCR) Not detected (Not Detect) Parainfluenza 3 (PCR) Not detected (Not Detect) Parainfluenza 4 (PCR) Not detected (Not Detect) RSV (PCR) Not detected (Not Detect) Entero/Rhino (PCR) Not detected (Not Detect) Discharge Plan Departure Patient Disposition: Admitted As Inpatient Clinical Impression: Sepsis, COVID, CHF (congestive heart failure) Admit Date/Time: 03/14/23 20:48 Admit Provider: Lee Zheng ED Sign-out <Bharat Gunter, - Last Filed: 03/14/23 20:56> Cosign ED Attending Cosignature Attestation: Dr Gunter Co-Sign Statement: I was available for consultation during this patient's emergency department visit. This chart is signed by myself for administrative purposes only. I did not have direct contact with this patient during this visit. They were seen independently by the APC.
[2023-03-14 17:31] LABS: Lactate (Lactic Acid) 1.3 mmol/L (0.7-2.1)
[2023-03-14 17:33] LABS: Alanine Aminotransferase 17 IU/L (<50); Albumin Globulin Ratio 1.3 (1.0-2.8); Alkaline Phosphatase 84 U/L (38-126); Aspartate Aminotransferase 25 IU/L (17-59); BUN Creatinine Ratio 27.2 (6-22); Bilirubin Total 2.2 mg/dL (0.2-1.3); Blood Urea Nitrogen 25 mg/dL (9-20); Calcium 10.4 mg/dL (8.4-10.2); Carbon Dioxide 25 mmol/L (22-32); Chloride 98 mmol/L (98-107); Creatine Kinase 192 U/L (55-170); Estimated Glomerular Filt Rate > 60 mL/min (>60); Globulin 3.1 g/dL (1.7-4.1); Glucose 121 mg/dL (80-110); HEMOLYSIS < 15 (0-50); Potassium 3.5 mmol/L (3.4-5.1); Sodium 132 mmol/L (137-145); Total Protein 7.1 g/dL (6.3-8.2)
[2023-03-14 17:39] LABS: Add Manual Diff / Slide Review NO; Basophils Absolute Auto 100 /uL (0-100); Basophils Percent Auto 0.4 % (0-2); Eosinophils Absolute Auto 0 /uL (0-450); Hemoglobin 12.2 g/dL (13.5-17.5); Lymphocytes Absolute Auto 500 /uL (1100-4500); Lymphocytes Percent Auto 3.7 % (25-40); Mean Corpuscular Hemoglobin 32.5 PG (26-34); Monocytes Absolute Auto 2600 /uL (0-900); Monocytes Percent Auto 18.5 % (3-14); Neutrophils Absolute Auto 10800 /uL (1500-7000); Neutrophils Percent Auto 77.4 % (50-75); Platelet Count 132 X10^3/uL (150-400); Red Blood Cell Count 3.76 X10^6/uL (4.5-5.9); Red Cell Distribution Width 14.9 % (11.6-14.8); White Blood Cell Count 13.9 X10^3/uL (4.5-11.0)
[2023-03-14 17:44] LABS: NT-proBNP (BNP-Adult 18+) 2230 pg/mL (<450); Troponin I 0.035 ng/mL (0.01-0.034)
[2023-03-14] MEDS: SODIUM CHLORIDE 0.9% 2,052 ML 684 ML IV (17:46)
--- NOTE | 2023-03-14 17:46 | DI.US.S_ITS ---
PROCEDURE: US ABDOMEN LIMITED INDICATIONS: ELEVATED BILIRUBIN. TECHNIQUE: Real-time scanning was performed of the abdominal and retroperitoneal organs, with image documentation. COMPARISON: [facility], CT, CT ABDOMEN PELVIS WO/W CON, 10/15/2022, 11:04. FINDINGS: Liver: Hepatic parenchyma shows diffuse increased echogenicity consistent with fatty infiltration. Evaluation is limited by overlying bowel gas Gallbladder: Cholecystectomy Common Bile Duct: Nonvisualized due to overlying bowel gas Pancreas: Nonvisualized due to overlying bowel gas IMPRESSION: 1. Extremely limited ultrasound of the right upper quadrant. Partially visualized liver suggests hepatic fatty infiltration. 2. 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 Approved by: Javier Cole M.D. on 03/14/2023 at 19:37
[2023-03-14] MEDS: cefTRIAXone 2,000 MG in SODIUM CHLORIDE 0.9% 100 ML 200 MG IV (17:47)
[2023-03-14 17:49] LABS: Procalcitonin 0.66 ng/mL (<0.5)
[2023-03-14 18:00] LABS: Appearance Urine UA CLEAR; Bilirubin Urine UA NEGATIVE (NEGATIVE); Color Urine UA YELLOW; Glucose Urine UA 3+ g/dL (Negative); Ketones Urine UA TRACE (NEGATIVE); Leukocyte Esterase Urine UA 1+ (NEGATIVE); Nitrite Urine UA NEGATIVE (Negative); Occult Blood Urine UA 1+ (Negative); Protein Urine UA NEGATIVE (Negative); Specific Gravity Urine UA <=1.005 (1.000-1.035); Urobilinogen Urine UA 0.2 E.U./dL (0.2); pH Urine UA 5.5 (4.5-8.0)
[2023-03-14 18:16] LABS: Adenovirus Not Detected (Not Detect); B. parapertussis Not Detected (Not Detecte); Bordetella pertussis Not Detected (Not Detect); Chlamydophila pneumoniae Not Detected (Not Detect); Coronavirus 229E Not Detected (Not Detect); Coronavirus HKU1 Not Detected (Not Detect); Coronavirus NL 63 Not Detected (Not Detect); Coronavirus OC43 Not Detected (Not Detect); Human Metapneumovirus Not Detected (Not Detect); Human Rhinovirus/Enterovirus Not Detected (Not Detect); Influenza A Not Detected (Not Detect); Influenza B Not Detected (Not Detect); Mycoplasma pneumoniae Not Detected (Not Detect); Parainfluenza Virus 1 Not Detected (Not Detect); Parainfluenza Virus 2 Not Detected (Not Detect); Parainfluenza Virus 3 Not Detected (Not Detect); Parainfluenza Virus 4 Not Detected (Not Detect); Respiratory Syncytial Virus Not Detected (Not Detect)
[2023-03-14 18:26] LABS: Bacteria Urine Moderate (10-30); Culture Indicated Urine Specimen Cultured; RBC Urine 1-5/HPF (0-5/HPF); Squamous Epithelial Cell Urine 5-10 /HPF (0-5/HPF); WBC Urine 5-10/HPF (0-5/HPF)
[2023-03-14 18:36] LABS: SARS- CoV-2 Detected (Not Detecte)
[2023-03-14 20:29] LABS: Troponin I 0.043 ng/mL (0.01-0.034)
[2023-03-14] MEDS: FUROSEMIDE 40 MG/4 ML VIAL IV ×2 (20:47→23:26)
--- NOTE | 2023-03-14 21:59 | PM.HP.1 ---
History of Present Illness History of Present Illness Chief complaint: low blood pressure x3 days Narrative: 46 years old 32 years old male with longstanding cardiovascular disease, status post CABG in 1981 and most recently in 1991, ischemic cardiomyopathy, permanent atrial fibrillation on Eliquis, dual-chamber permanent pacemaker, hyperlipidemia, hypertension, CHF, presented to the ER with 3 days of not feeling well, fatigue and poor energy. Denies any other symptoms including shortness of breath, cough, fever, chest pain, palpitations, nausea, vomiting, abdominal pain, diarrhea or dysuria. He was last seen by cardiology in end of December and his Lasix was changed to torsemide. Since then his weight is stable and denies any other symptoms. Compliant to his home medications. Fully vaccinated against COVID and never had any COVID before. Denies any other urinary symptoms. In the ER he was found to be COVID-positive, urine showed UTI and blood test shows mild CHF. His initial laboratory showed WBC 13.9, platelets 132, sodium 132, creatinine 0.92, blood sugar 121, calcium 10.4, troponin 0.0 43, BNP 2330, UA positive for UTI, chest x-ray shows moderate cardiomegaly. EKG unremarkable, last echo in January 29 shows normal LV size and borderline increased wall thickness. Borderline global hypokinesia and ejection fraction of 45-50%. Comparing to previous study in August LV is more dynamic. In the ER his vital signs shows temperature 101.3, pulse 59, blood pressure 108/54. He was given ceftriaxone 2 g IV, Lasix 40 mg IV and NS 2 L IV bolus. [facility] Medical History (Updated 03/14/23 @ 22:02 by Lee Zheng MD) Sleep apnea (~1997) Asthma (~1992) Rubella Mumps Tinnitus (~1991) Hearing loss (~2010) Cataracts, bilateral (~2021) History of urinary incontinence Skin cancer (~2009) Prostate cancer (~1994) Chronic anticoagulation Stress incontinence after surgical procedure Hx of cardiac pacemaker Hx of malignant neoplasm of prostate History of asthma Atrial fibrillation Hyperlipidemia Bladder cancer (~2003) Benign essential HTN COPD (chronic obstructive pulmonary disease) (~2005) CHF (congestive heart failure) Varicella Surgical History (Updated 11/10/22 @ 20:03 by Sondra Benedict) History of bladder surgery History of cataract removal with insertion of prosthetic lens (~2021) Status post implantation of artificial urinary sphincter History of transurethral resection of bladder tumor (TURBT) Hx of vasectomy History of transurethral resection of prostate History of circumcision Hx of cholecystectomy 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) Status post prostatectomy Family History (Updated 11/10/22 @ 20:06 by Sonrda Benedict) Father Cancer CAD (coronary artery disease) Hyperlipidemia Hypertension Mother Diabetes mellitus Hypertension Brother Diabetes mellitus Hypertension Sister Drug abuse Sister COPD (chronic obstructive pulmonary disease) Social History marital status: number of children: 3 household members: none occupational status: other Smoking Status: Former smoker Tobacco: How many years used: 15 alcohol intake: current caffeine: Yes Type(s) of exercise: walking and other Meds Home Medications and Allergies Home Medications Medication Instructions Recorded Confirmed Type atorvastatin 40 mg tablet 40 mg PO DAILY 08/12/22 03/14/23 History metoprolol succinate 50 mg 50 mg PO DAILY 08/12/22 03/14/23 History tablet,extended release 24 hr montelukast 10 mg tablet 50 mg PO DAILY 08/12/22 03/14/23 History omeprazole 40 mg capsule,delayed 40 mg PO DAILY 08/12/22 03/14/23 History release apixaban 5 mg tablet (Eliquis) 5 mg PO BID 11/06/22 03/14/23 History torsemide 40 mg tablet 80 mg PO DAILY 11/06/22 03/14/23 History albuterol sulfate 90 mcg/actuation 1 - 2 inh inhalation ONCE PRN 11/10/22 03/14/23 Rx aerosol inhaler (ProAir HFA) shortness of breath or wheezing #8.5 grams potassium chloride 20 mEq See Rx Instructions .Route .COMPLEX 02/18/23 03/14/23 History tablet,extended release empagliflozin 10 mg tablet 10 mg PO DAILY 03/14/23 03/14/23 History (Jardiance) fluticasone fur. 200 mcg-umeclid 1 ea inhalation DAILY 03/14/23 03/14/23 History 62.5 mcg-vilant 25 mcg inhalat.powder (Trelegy Ellipta) sacubitril 49 mg-valsartan 51 mg 1 tab PO BID 03/14/23 03/14/23 History tablet (Entresto) Allergies Allergy/AdvReac Type Severity Reaction Status Date / Time Penicillins Allergy Unknown Verified 03/14/23 17:01 Review of Systems Review of Systems ROS: Yes All systems reviewed with the patient and are negative except as otherwise documented Constitutional Constitutional: Reports as per HPI and Reports system reviewed and no additional complaints, except as documented Eyes Eyes: Reports as per HPI and Reports system reviewed and no additional complaints, except as documented ENT Ears, Nose, Mouth, and Throat: Yes as per HPI and Yes system reviewed and no additional complaints, except as documented Cardiovascular Cardiovascular: Reports system reviewed and no additional complaints, except as documented Respiratory Respiratory: Reports system reviewed and no additional complaints, except as documented Gastrointestinal Gastrointestinal: Reports system reviewed and no additional complaints, except as documented Genitourinary Genitourinary: Reports system reviewed and no additional complaints, except as documented Musculoskeletal Musculoskeletal: Reports system reviewed and no additional complaints, except as documented, Reports abnormal gait and Reports numbness Neurologic Neurologic: Reports system reviewed and no additional complaints, except as documented, Reports abnormal gait, Reports confusion and Reports numbness Psychiatric Psychiatric: Reports system reviewed and no additional complaints, except as documented and Reports confusion Exam Vital Signs (past 8 hours): - 03/14/23 16:52 03/14/23 16:52 03/14/23 16:56 Temperature 101.3 F H Pulse Rate 60 60 Respiratory Rate 24 Blood Pressure 145/66 H 145/66 H Pulse Oximetry 94 94 Oxygen Delivery Method Room Air Oxygen Flow Rate 03/14/23 17:00 03/14/23 17:00 03/14/23 17:15 Temperature Pulse Rate 60 60 Respiratory Rate 24 16 Blood Pressure 129/60 Pulse Oximetry 95 95 Oxygen Delivery Method Oxygen Flow Rate 03/14/23 17:19 03/14/23 17:19 03/14/23 17:37 Temperature Pulse Rate 60 60 Respiratory Rate 18 Blood Pressure 128/70 Pulse Oximetry 95 Oxygen Delivery Method Room Air Oxygen Flow Rate 03/14/23 17:39 03/14/23 17:39 03/14/23 17:40 Temperature Pulse Rate 60 60 Respiratory Rate 19 15 Blood Pressure 108/54 L Pulse Oximetry Oxygen Delivery Method Oxygen Flow Rate 03/14/23 17:45 03/14/23 17:50 03/14/23 17:53 Temperature Pulse Rate 60 60 Respiratory Rate 15 Blood Pressure 102/52 L Pulse Oximetry 95 96 Oxygen Delivery Method Oxygen Flow Rate 03/14/23 17:53 03/14/23 17:55 03/14/23 17:55 Temperature Pulse Rate 60 60 Respiratory Rate 18 23 Blood Pressure 104/51 L Pulse Oximetry 96 96 Oxygen Delivery Method Oxygen Flow Rate 03/14/23 17:56 03/14/23 18:00 03/14/23 18:00 Temperature 100.9 F H Pulse Rate 59 L Respiratory Rate Blood Pressure 119/54 L Pulse Oximetry 96 Oxygen Delivery Method Oxygen Flow Rate 03/14/23 18:05 03/14/23 18:05 03/14/23 18:10 Temperature Pulse Rate 59 L Respiratory Rate 14 Blood Pressure 100/51 L 96/51 L Pulse Oximetry 96 Oxygen Delivery Method Oxygen Flow Rate 03/14/23 18:10 03/14/23 18:15 03/14/23 18:16 Temperature Pulse Rate 59 L 60 60 Respiratory Rate 10 L 24 20 Blood Pressure Pulse Oximetry 96 95 97 Oxygen Delivery Method Oxygen Flow Rate 03/14/23 18:16 03/14/23 18:20 03/14/23 18:20 Temperature Pulse Rate 60 Respiratory Rate 11 L Blood Pressure 115/53 L 101/52 L Pulse Oximetry 96 Oxygen Delivery Method Oxygen Flow Rate 03/14/23 18:25 03/14/23 18:25 03/14/23 18:30 Temperature Pulse Rate 60 Respiratory Rate 18 Blood Pressure 97/49 L 104/51 L Pulse Oximetry 96 Oxygen Delivery Method Oxygen Flow Rate 03/14/23 18:30 03/14/23 18:35 03/14/23 18:35 Temperature Pulse Rate 60 60 Respiratory Rate 17 14 Blood Pressure 106/55 L Pulse Oximetry 94 97 Oxygen Delivery Method Oxygen Flow Rate 03/14/23 18:40 03/14/23 18:40 03/14/23 18:45 Temperature Pulse Rate 60 Respiratory Rate 17 Blood Pressure 109/55 L 100/54 L Pulse Oximetry 97 Oxygen Delivery Method Oxygen Flow Rate 03/14/23 18:45 03/14/23 18:50 03/14/23 18:50 Temperature Pulse Rate 60 60 Respiratory Rate 11 L 12 Blood Pressure 101/52 L Pulse Oximetry 96 94 Oxygen Delivery Method Oxygen Flow Rate 03/14/23 18:55 03/14/23 18:55 03/14/23 19:00 Temperature Pulse Rate 60 Respiratory Rate 11 L Blood Pressure 101/53 L 95/47 L Pulse Oximetry 95 Oxygen Delivery Method Oxygen Flow Rate 03/14/23 19:00 03/14/23 19:05 03/14/23 19:05 Temperature Pulse Rate 60 60 Respiratory Rate 12 Blood Pressure 106/55 L Pulse Oximetry 97 96 Oxygen Delivery Method Room Air Oxygen Flow Rate 03/14/23 19:10 03/14/23 19:10 03/14/23 19:15 Temperature Pulse Rate 60 Respiratory Rate 17 Blood Pressure 99/51 L 106/53 L Pulse Oximetry 95 Oxygen Delivery Method Oxygen Flow Rate 03/14/23 19:15 03/14/23 19:20 03/14/23 19:20 Temperature Pulse Rate 60 60 Respiratory Rate Blood Pressure 106/77 Pulse Oximetry 95 96 Oxygen Delivery Method Oxygen Flow Rate 03/14/23 19:25 03/14/23 19:30 03/14/23 19:31 Temperature Pulse Rate 60 61 Respiratory Rate 24 21 Blood Pressure 121/56 L Pulse Oximetry 96 97 Oxygen Delivery Method Oxygen Flow Rate 03/14/23 19:31 03/14/23 19:35 03/14/23 19:40 Temperature Pulse Rate 60 60 60 Respiratory Rate 16 12 12 Blood Pressure Pulse Oximetry 97 96 96 Oxygen Delivery Method Room Air Oxygen Flow Rate 03/14/23 19:45 03/14/23 19:50 03/14/23 19:55 Temperature Pulse Rate 60 60 60 Respiratory Rate 18 Blood Pressure Pulse Oximetry 96 98 97 Oxygen Delivery Method Oxygen Flow Rate 03/14/23 20:00 03/14/23 20:00 03/14/23 20:05 Temperature Pulse Rate 60 60 Respiratory Rate 17 23 Blood Pressure 106/57 L Pulse Oximetry 97 96 Oxygen Delivery Method Oxygen Flow Rate 03/14/23 20:10 03/14/23 20:15 03/14/23 20:20 Temperature Pulse Rate 60 60 60 Respiratory Rate 19 Blood Pressure Pulse Oximetry 95 96 97 Oxygen Delivery Method Oxygen Flow Rate 03/14/23 20:27 03/14/23 20:30 03/14/23 20:30 Temperature Pulse Rate 60 60 Respiratory Rate 19 Blood Pressure 118/58 L Pulse Oximetry 97 100 Oxygen Delivery Method Oxygen Flow Rate 03/14/23 20:35 03/14/23 20:40 03/14/23 20:45 Temperature Pulse Rate 60 60 60 Respiratory Rate 18 Blood Pressure Pulse Oximetry 99 99 99 Oxygen Delivery Method Oxygen Flow Rate 03/14/23 20:50 03/14/23 20:55 03/14/23 21:00 Temperature Pulse Rate 60 60 60 Respiratory Rate 20 Blood Pressure Pulse Oximetry 99 99 99 Oxygen Delivery Method Oxygen Flow Rate 03/14/23 21:01 03/14/23 21:01 03/14/23 21:05 Temperature Pulse Rate 60 60 Respiratory Rate 18 Blood Pressure 121/59 L Pulse Oximetry 99 99 Oxygen Delivery Method Oxygen Flow Rate 03/14/23 21:10 03/14/23 21:15 03/14/23 21:39 Temperature 97.5 F L Pulse Rate 63 59 L 60 Respiratory Rate 20 Blood Pressure 138/63 Pulse Oximetry 99 99 98 Oxygen Delivery Method Room Air Oxygen Flow Rate 0 Oxygen Delivery Method Room Air Oxygen Flow Rate 0 Const General: cooperative, comfortable and well developed Orientation: alert and oriented x3 HENMT Head: normal to inspection, normocephalic and atraumatic Face and sinus: normal facial exam Mouth: oral mucosae normal and moist mucous membranes Throat: posterior oropharynx normal Eyes General: appearance normal, both eyes and all related structures Pupils: PERRL EOM: EOM intact bilaterally Neck Neck: normal visual inspection and full ROM Chest Chest: normal inspection of the chest Resp Effort & Inspection: normal respiratory effort and able to speak in complete sentences Auscultation: clear to auscultation bilaterally Cardio Palpation: normal PMI Rate: regular rate Rhythm: regular rhythm Heart Sounds: S1 normal and S2 normal GI Inspection: normal to inspection Palpation: soft and no hepatosplenomegaly Auscultation: normal bowel sounds Skin General: no rashes or lesions noted Lesions: no lesions Rashes: no rashes Trauma: no lacerations or abrasions Neuro General: patient alert, patient awake, patient oriented x3 and no focal motor deficits Cranial Nerves: CN's II-XI intact bilaterally Cognition: normal cognition Speech: speech normal Gait: normal gait Motor: muscle tone normal throughout Sensory Exam: no sensory deficits noted Extrem General: full ROM and no calf tenderness Psych Appearance: grossly normal Mental Status: mental status grossly normal Speech and Movement: speech and movement normal Objective Labs 03/14/23 17:07 03/14/23 17:07 Labs: Laboratory Results - last 24 hr 03/14/23 03/14/23 03/14/23 17:07 17:36 19:58 WBC 13.9 H RBC 3.76 L Hgb 12.2 L Hct 35.0 L MCV 93.0 MCH 32.5 MCHC 35.0 RDW 14.9 H Plt Count 132 L Neut % (Auto) 77.4 H Lymph % (Auto) 3.7 L [place] % (Auto) 18.5 H Eos % (Auto) 0.0 L Baso % (Auto) 0.4 Neut # (Auto) 43491 H Lymph # (Auto) 500 L [place] # (Auto) 2600 H Eos # (Auto) 0 Baso # (Auto) 100 Sodium 132 L Potassium 3.5 Chloride 98 Carbon Dioxide 25 BUN 25 H Creatinine 0.92 Estimated GFR > 60 BUN/Creatinine Ratio 27.2 H Glucose 121 H Lactate 1.3 Calcium 10.4 H Total Bilirubin 2.2 H AST 25 ALT 17 Alkaline Phosphatase 84 Total Creatine Kinase 192 H Troponin I 0.035 H 0.043 H NT-Pro-B Natriuret Pep 2230 H Total Protein 7.1 Albumin 4.0 Globulin 3.1 Albumin/Globulin Ratio 1.3 Procalcitonin 0.66 H Urine Color Yellow Urine Appearance Clear Urine pH 5.5 Ur Specific [place] <=1.005 Urine Protein Negative Urine Glucose (UA) 3+ H Urine Ketones Trace H Urine Occult Blood 1+ H Urine Nitrate Negative Urine Bilirubin Negative Urine Urobilinogen 0.2 Ur Leukocyte Esterase 1+ H Urine RBC 1-5/hpf Urine WBC 5-10/hpf H Ur Squamous Epith Cells 5-10 /hpf H Urine Bacteria Moderate (10-30) H Ur Culture Indicated? Specimen cultured Chlamy pneumoniae PCR Not detected Adenovirus (PCR) Not detected B.parapertussis DNA PCR Not detected Coronavirus OC43 (PCR) Not detected Coronavirus HKU1 (PCR) Not detected Coronavirus 229E (PCR) Not detected SARS-CoV-2 (PCR) Detected Coronavirus NL63 (PCR) Not detected Human Metapneumovir PCR Not detected Influenza Type A (PCR) Not detected Influenza Type B (PCR) Not detected M. pneumoniae (PCR) Not detected Parainfluenza 1 (PCR) Not detected Parainfluenza 2 (PCR) Not detected Parainfluenza 3 (PCR) Not detected Parainfluenza 4 (PCR) Not detected RSV (PCR) Not detected Entero/Rhino (PCR) Not detected Assessment & Plan Assessment and plan (1) COVID: Status: Acute Plan: -Hold remdesivir for now -cont Ceftriaxone -Dexamethasone 6 mg by mouth daily -Supplemental oxygen as needed -Air-born and contact isolation -Eliquis for DVT prophylaxis. (2) Sepsis: Status: Acute Plan: Most likely due to UTI. Given 2 L of NS bolus and blood pressure improved. Continue antibiotics. (3) UTI (urinary tract infection): Status: Acute Plan: -Blood culture, urine culture, -Antibiotics, ceftriaxone, -Monitor for urine retention, check post void residuals. (4) CHF (congestive heart failure): Status: Acute Plan: -diuresis with Lasix as BP can tolerate. -check BNP and repeat in 48 hours; low sodium diet -Monitor effectiveness of diuresis. Monitor renal function. -keep potassium> 4 and magnesium> 2 -Telemetry monitoring -serial troponins, Echo -Resume BB -Supplemental O2 as needed, goal SpO2> 90% (5) Atrial fibrillation: Qualifiers: Atrial fibrillation type: permanent Qualified Code(s): I48.21 - Permanent atrial fibrillation Status: Chronic Plan: Rate controlled. Restart metoprolol and Eliquis. (6) Hyperlipidemia: Qualifiers: Hyperlipidemia type: unspecified Qualified Code(s): E78.5 - Hyperlipidemia, unspecified Status: Acute Plan: Restart Lipitor (7) Benign essential HTN: Status: Chronic Plan: Mild hypotension initially, resolved by NS bolus. Monitor closely. (8) COPD (chronic obstructive pulmonary disease): Qualifiers: COPD type: unspecified COPD Qualified Code(s): J44.9 - Chronic obstructive pulmonary disease, unspecified Status: Acute Plan: Albuterol as needed Time Spent With Patient Time with patient: 50 to 69 minutes with 50% spent counseling/coordinating care Quality VTE Deep Vein Thrombosis/Pulmonary Embolism Present on Admission: No MIPS - Admit I confirm the patient?s Advance Care Plan is present, Code status is documented, Surrogate decision maker is in patient?s record [If Yes, STOP here]: Yes MIPS - Meds 'Current medications' to include all prescriptions, [id number] products, herbals, cannabis/cannabidiol products, and vitamin/mineral/dietary (nutritional) supplements. I have utilized all available resources to obtain, update, or review the patient?s current medications. [If Yes, STOP here]: Yes
[2023-03-14 22:48] LABS: Troponin I 0.031 ng/mL (0.01-0.034)
[2023-03-14] MEDS: APIXABAN 5 MG TABLET PO (22:50)
[2023-03-14 23:07] LABS: Thyroid Stimulating Hormone 1.77 uIU/mL (0.47-4.68)
[2023-03-15 00:20] VITALS: BP 133/65; PULSE 62; RESP 22; TEMP 36.1; O2SAT 93
--- NOTE | 2023-03-15 00:47 | PC.ADMIT ---
Addendum entered by Krysta Acosta R.N. 03/15/23 06:14: 250 ml NS bolus given now, BP now 112/47 (MAP 69), HR 60. Addendum entered by Krysta Acosta R.N. 03/15/23 04:04: BP low @ 0400. Left arm is 109/31 (MAP 57). Right arm 103/42 (MAP 58), HR 60. Notified MD Zheng, no new orders. Addendum entered by Krysta Acosta R.N. 03/15/23 02:50: Patient awoke @ 0240 to go to the bathroom, brief was wet, and patient continuing to frequently void small amounts of urine. Bladder scanned - PVR 48 ml. Patient stated he was feeling nauseous, IV Zofran given. Original Note: Arrived onto the floor from ED approximately 0. Patient is AxOx4, denies chest pain, SOB, nausea. VSS, 98% on RA. Patient is a SBA, tolerated ambulation well, although experiencing some generalized weakness and unsteady gait. Lung sounds are clear on auscultation, patient is not coughing. Patient has an artificial sphincter and frequently urinates d/t diuretics. Patient has a pacemaker, on tele showing V paced rhythm. Educated patient on use of call-light, patient verbalized understanding. Bed is locked and in low position, bed alarm is on, call light within reach. [email or web address] Admission Note: The patient,Aamir Montelongo,82 y/o, was given written information regarding hospital policies, unit procedures and contact persons. Patient's smoking status: Former smoker. Vital Signs - 8 hr 03/14/23 16:52 03/14/23 16:52 03/14/23 16:56 Temperature 101.3 F H Pulse Rate 60 60 Respiratory Rate 24 Blood Pressure 145/66 H 145/66 H Pulse Oximetry 94 94 Oxygen Delivery Method Room Air Oxygen Flow Rate 03/14/23 17:00 03/14/23 17:00 03/14/23 17:15 Temperature Pulse Rate 60 60 Respiratory Rate 24 16 Blood Pressure 129/60 Pulse Oximetry 95 95 Oxygen Delivery Method Oxygen Flow Rate 03/14/23 17:19 03/14/23 17:19 03/14/23 17:37 Temperature Pulse Rate 60 60 Respiratory Rate 18 Blood Pressure 128/70 Pulse Oximetry 95 Oxygen Delivery Method Room Air Oxygen Flow Rate 03/14/23 17:39 03/14/23 17:39 03/14/23 17:40 Temperature Pulse Rate 60 60 Respiratory Rate 19 15 Blood Pressure 108/54 L Pulse Oximetry Oxygen Delivery Method Oxygen Flow Rate 03/14/23 17:45 03/14/23 17:50 03/14/23 17:53 Temperature Pulse Rate 60 60 Respiratory Rate 15 Blood Pressure 102/52 L Pulse Oximetry 95 96 Oxygen Delivery Method Oxygen Flow Rate 03/14/23 17:53 03/14/23 17:55 03/14/23 17:55 Temperature Pulse Rate 60 60 Respiratory Rate 18 23 Blood Pressure 104/51 L Pulse Oximetry 96 96 Oxygen Delivery Method Oxygen Flow Rate 03/14/23 17:56 03/14/23 18:00 03/14/23 18:00 Temperature 100.9 F H Pulse Rate 59 L Respiratory Rate Blood Pressure 119/54 L Pulse Oximetry 96 Oxygen Delivery Method Oxygen Flow Rate 03/14/23 18:05 03/14/23 18:05 03/14/23 18:10 Temperature Pulse Rate 59 L Respiratory Rate 14 Blood Pressure 100/51 L 96/51 L Pulse Oximetry 96 Oxygen Delivery Method Oxygen Flow Rate 03/14/23 18:10 03/14/23 18:15 03/14/23 18:16 Temperature Pulse Rate 59 L 60 60 Respiratory Rate 10 L 24 20 Blood Pressure Pulse Oximetry 96 95 97 Oxygen Delivery Method Oxygen Flow Rate 03/14/23 18:16 03/14/23 18:20 03/14/23 18:20 Temperature Pulse Rate 60 Respiratory Rate 11 L Blood Pressure 115/53 L 101/52 L Pulse Oximetry 96 Oxygen Delivery Method Oxygen Flow Rate 03/14/23 18:25 03/14/23 18:25 03/14/23 18:30 Temperature Pulse Rate 60 Respiratory Rate 18 Blood Pressure 97/49 L 104/51 L Pulse Oximetry 96 Oxygen Delivery Method Oxygen Flow Rate 03/14/23 18:30 03/14/23 18:35 03/14/23 18:35 Temperature Pulse Rate 60 60 Respiratory Rate 17 14 Blood Pressure 106/55 L Pulse Oximetry 94 97 Oxygen Delivery Method Oxygen Flow Rate 03/14/23 18:40 03/14/23 18:40 03/14/23 18:45 Temperature Pulse Rate 60 Respiratory Rate 17 Blood Pressure 109/55 L 100/54 L Pulse Oximetry 97 Oxygen Delivery Method Oxygen Flow Rate 03/14/23 18:45 03/14/23 18:50 03/14/23 18:50 Temperature Pulse Rate 60 60 Respiratory Rate 11 L 12 Blood Pressure 101/52 L Pulse Oximetry 96 94 Oxygen Delivery Method Oxygen Flow Rate 03/14/23 18:55 03/14/23 18:55 03/14/23 19:00 Temperature Pulse Rate 60 Respiratory Rate 11 L Blood Pressure 101/53 L 95/47 L Pulse Oximetry 95 Oxygen Delivery Method Oxygen Flow Rate 03/14/23 19:00 03/14/23 19:05 03/14/23 19:05 Temperature Pulse Rate 60 60 Respiratory Rate 12 Blood Pressure 106/55 L Pulse Oximetry 97 96 Oxygen Delivery Method Room Air Oxygen Flow Rate 03/14/23 19:10 03/14/23 19:10 03/14/23 19:15 Temperature Pulse Rate 60 Respiratory Rate 17 Blood Pressure 99/51 L 106/53 L Pulse Oximetry 95 Oxygen Delivery Method Oxygen Flow Rate 03/14/23 19:15 03/14/23 19:20 03/14/23 19:20 Temperature Pulse Rate 60 60 Respiratory Rate Blood Pressure 106/77 Pulse Oximetry 95 96 Oxygen Delivery Method Oxygen Flow Rate 03/14/23 19:25 03/14/23 19:30 03/14/23 19:31 Temperature Pulse Rate 60 61 Respiratory Rate 24 21 Blood Pressure 121/56 L Pulse Oximetry 96 97 Oxygen Delivery Method Oxygen Flow Rate 03/14/23 19:31 03/14/23 19:35 03/14/23 19:40 Temperature Pulse Rate 60 60 60 Respiratory Rate 16 12 12 Blood Pressure Pulse Oximetry 97 96 96 Oxygen Delivery Method Room Air Oxygen Flow Rate 03/14/23 19:45 03/14/23 19:50 03/14/23 19:55 Temperature Pulse Rate 60 60 60 Respiratory Rate 18 Blood Pressure Pulse Oximetry 96 98 97 Oxygen Delivery Method Oxygen Flow Rate 03/14/23 20:00 03/14/23 20:00 03/14/23 20:05 Temperature Pulse Rate 60 60 Respiratory Rate 17 23 Blood Pressure 106/57 L Pulse Oximetry 97 96 Oxygen Delivery Method Oxygen Flow Rate 03/14/23 20:10 03/14/23 20:15 03/14/23 20:20 Temperature Pulse Rate 60 60 60 Respiratory Rate 19 Blood Pressure Pulse Oximetry 95 96 97 Oxygen Delivery Method Oxygen Flow Rate 03/14/23 20:27 03/14/23 20:30 03/14/23 20:30 Temperature Pulse Rate 60 60 Respiratory Rate 19 Blood Pressure 118/58 L Pulse Oximetry 97 100 Oxygen Delivery Method Oxygen Flow Rate 03/14/23 20:35 03/14/23 20:40 03/14/23 20:45 Temperature Pulse Rate 60 60 60 Respiratory Rate 18 Blood Pressure Pulse Oximetry 99 99 99 Oxygen Delivery Method Oxygen Flow Rate 03/14/23 20:50 03/14/23 20:55 03/14/23 21:00 Temperature Pulse Rate 60 60 60 Respiratory Rate 20 Blood Pressure Pulse Oximetry 99 99 99 Oxygen Delivery Method Oxygen Flow Rate 03/14/23 21:01 03/14/23 21:01 03/14/23 21:05 Temperature Pulse Rate 60 60 Respiratory Rate 18 Blood Pressure 121/59 L Pulse Oximetry 99 99 Oxygen Delivery Method Oxygen Flow Rate 03/14/23 21:10 03/14/23 21:15 03/14/23 21:30 Temperature Pulse Rate 63 59 L Respiratory Rate Blood Pressure Pulse Oximetry 99 99 Oxygen Delivery Method Room Air Room Air Oxygen Flow Rate 03/14/23 21:39 03/15/23 00:20 Temperature 97.5 F L 97.0 F L Pulse Rate 60 62 Respiratory Rate 20 22 Blood Pressure 138/63 133/65 Pulse Oximetry 98 93 Oxygen Delivery Method Oxygen Flow Rate 0 0
[2023-03-15] MEDS: ONDANSETRON 4 MG/2 ML INJ IV (02:37)
[2023-03-15] MEDS: MELATONIN 3 MG TABLET 9 MG PO (03:37)
[2023-03-15 04:03] VITALS: BP 109/31; PULSE 60; RESP 22; O2SAT 95
[2023-03-15 04:21] LABS: Troponin I 0.039 ng/mL (0.01-0.034)
[2023-03-15] MEDS: SODIUM CHLORIDE 0.9% 500 ML 250 ML IV (05:44)
[2023-03-15] MEDS: PANTOPRAZOLE DR 40 MG TABLET PO (05:55)
[2023-03-15 05:59] VITALS: TEMP 36.1
[2023-03-15 06:00] VITALS: BP 112/47; PULSE 60
[2023-03-15 07:00] VITALS: BP 125/67; PULSE 85; RESP 16; TEMP 36.4; O2SAT 96
[2023-03-15 08:23] LABS: BUN Creatinine Ratio 29.4 (6-22); Blood Urea Nitrogen 25 mg/dL (9-20); Calcium 9.6 mg/dL (8.4-10.2); Carbon Dioxide 23 mmol/L (22-32); Chloride 99 mmol/L (98-107); Estimated Glomerular Filt Rate > 60 mL/min (>60); Glucose 105 mg/dL (80-110); HEMOLYSIS < 15 (0-50); Potassium 3.2 mmol/L (3.4-5.1); Sodium 132 mmol/L (137-145)
[2023-03-15 08:51] VITALS: BP 125/67; PULSE 85
[2023-03-15] MEDS: APIXABAN 5 MG TABLET PO (08:51)
[2023-03-15] MEDS: DOCUSATE 100 MG CAPSULE PO (08:51)
[2023-03-15] MEDS: dexAMETHasone 4 MG TABLET 6 MG PO (08:51)
[2023-03-15] MEDS: MONTELUKAST 10 MG TABLET PO (08:51)
[2023-03-15] MEDS: POTASSIUM CHLORIDE 20 MEQ TAB 60 MEQ PO (08:51)
[2023-03-15] MEDS: METOPROLOL ER 50 MG TABLET PO (08:51)
[2023-03-15] MEDS: SODIUM CHLORIDE 0.9% FLUSH 10 ML IV (08:53)
--- NOTE | 2023-03-15 09:05 | PM.DS.1 ---
History of Present Illness History of Present Illness Date Patient Seen: 03/15/23 Time Patient Seen: 09:05 Chief complaint: low blood pressure x3 days Narrative: Per admitting provider, 82 y/o male with longstanding cardiovascular disease, status post CABG in 1981 and most recently in 1991, ischemic cardiomyopathy, permanent atrial fibrillation on Eliquis, dual-chamber permanent pacemaker, hyperlipidemia, hypertension, CHF, presented to the ER with 3 days of not feeling well, fatigue and poor energy. Denies any other symptoms including shortness of breath, cough, fever, chest pain, palpitations, nausea, vomiting, abdominal pain, diarrhea or dysuria. He was last seen by cardiology in end of December and his Lasix was changed to torsemide. Since then his weight is stable and denies any other symptoms. Compliant to his home medications. Fully vaccinated against COVID and never had any COVID before. Denies any other urinary symptoms. In the ER he was found to be COVID-positive, urine showed UTI and blood test shows mild CHF. His initial laboratory showed WBC 13.9, platelets 132, sodium 132, creatinine 0.92, blood sugar 121, calcium 10.4, troponin 0.0 43, BNP 2330, UA positive for UTI, chest x-ray shows moderate cardiomegaly. EKG unremarkable, last echo in January 29 shows normal LV size and borderline increased wall thickness. Borderline global hypokinesia and ejection fraction of 45-50%. Comparing to previous study in August LV is more dynamic. In the ER his vital signs shows temperature 101.3, pulse 59, blood pressure 108/54. He was given ceftriaxone 2 g IV, Lasix 40 mg IV and NS 2 L IV bolus. Discharge Providers Provider Date of admission: 03/14/23 20:48 Discharge Date: 03/15/23 Primary care physician: Karen Pollard DO Consults: 03/14/23 21:18 Consult to Discharge Planning Routine Comment: Consult to Occupational Therapy Evaluate & Treat Comment: Physician Instructions: Evaluate and treat Consult to Physical Therapy Evaluate & Treat Comment: Physician Instructions: Evaluate and Treat Discharge provider: Chay Maldonado DO Summary Hospital Course Discharge Diagnosis: (1) COVID: (2) Sepsis secondary to acute cystitis with hyperbilirubinemia, thrombocytopenia (3) Acute cystitis (4) Chronic heart failure (congestive heart failure), likely diastolic, with ischemic cardiomyopathy (5) Atrial fibrillation, permanent (6) Hyperlipidemia: (7) Benign essential HTN: (8) COPD (chronic obstructive pulmonary disease): 9. myocardial injury. Hospital Course: This is an 82 year old male with PMH of CHFpEF, CAD, permanent afib, HLD, HTN and COPD who presented with fatigue and lack of energy. He denied lower extremity edema, or shortness of breath. He was admitted for possible sepsis, likely due to a combination of acute cystitis, covid with or without pneumonia. He felt improved after admission and denied any shortness of breath, fatigue, or dizziness. He was ambulating without assistance and after risk and benefit discussion elected for discharge home. He improved much more quickly than expected. He reports pencillin allergy, but tolerated ceftriaxone without difficulty. He was discharged on 6 days of cefdinir to treat acute cystitis and doxycycline for 5 days to add coverage for a possible superimposed bacterial pneumonia. No home medication changes were recommended at discharge. troponin values were elevated likely due to demand and remained stable around 0.03. Of note, previous imaging has showed possible IPMN, and he is recommended for non-urgent outpatient MRI for further evaluation. Time Spent with Patient Time spent: Greater than 30 minutes Exam Vital Signs (past 8 hours): - 03/15/23 04:03 03/15/23 05:59 03/15/23 06:00 Temperature 97.0 F L Pulse Rate 60 60 Respiratory Rate 22 Blood Pressure 109/31 L 112/47 L Pulse Oximetry 95 Oxygen Flow Rate 0 03/15/23 07:00 03/15/23 08:51 Temperature 97.5 F L Pulse Rate 85 85 Respiratory Rate 16 Blood Pressure 125/67 125/67 Pulse Oximetry 96 Oxygen Flow Rate 0 Oxygen Delivery Method Room Air Oxygen Flow Rate 0 Narrative Exam Narrative: General:? Patient is well developed and well nourished, in no distress at this time. HEENT:? Normocephalic, atraumatic, extraocular muscles intact, oral pharynx is clear and mucous membranes are moist. Neck: supple and symmetric, trachea is midline, no cervical adenopathy. Negative for JVD Chest:? Normal AP diameter and contour without kyphoscoliosis, no tachypnea, equal chest rise bilaterally. Lungs:? CTA b/l no wheezing rhonchi or rales. Cardio:?RRR no m/r/g. Abdomen: S NT ND. No CVA tenderness. Musculoskeletal:? Muscle strength and tone are equal within normal limits, no deformity. Extremities: No edema or joint effusions. No cyanosis or clubbing. Skin:? Pale,? Warm to touch,dry and intact without rashes, ulcerations or petechiae.? Neuro:? Alert and orientated x3,? sensation to touch intact in all extremities, no gross deficits noted of cranial nerves. Psych:? Patient has a well-kept appearance, appropriate affect, mental status attitude thought context and judgment are appropriate for age. Objective Labs 03/14/23 17:07 03/15/23 03:52 Labs: Laboratory Results - last 24 hr 03/14/23 03/14/23 03/14/23 17:07 17:36 19:58 WBC 13.9 H RBC 3.76 L Hgb 12.2 L Hct 35.0 L MCV 93.0 MCH 32.5 MCHC 35.0 RDW 14.9 H Plt Count 132 L Neut % (Auto) 77.4 H Lymph % (Auto) 3.7 L [place] % (Auto) 18.5 H Eos % (Auto) 0.0 L Baso % (Auto) 0.4 Neut # (Auto) 02489 H Lymph # (Auto) 500 L [place] # (Auto) 2600 H Eos # (Auto) 0 Baso # (Auto) 100 Sodium 132 L Potassium 3.5 Chloride 98 Carbon Dioxide 25 BUN 25 H Creatinine 0.92 Estimated GFR > 60 BUN/Creatinine Ratio 27.2 H Glucose 121 H Lactate 1.3 Calcium 10.4 H Magnesium Total Bilirubin 2.2 H AST 25 ALT 17 Alkaline Phosphatase 84 Total Creatine Kinase 192 H Troponin I 0.035 H 0.043 H NT-Pro-B Natriuret Pep 2230 H Total Protein 7.1 Albumin 4.0 Globulin 3.1 Albumin/Globulin Ratio 1.3 Procalcitonin 0.66 H TSH Urine Color Yellow Urine Appearance Clear Urine pH 5.5 Ur Specific [place] <=1.005 Urine Protein Negative Urine Glucose (UA) 3+ H Urine Ketones Trace H Urine Occult Blood 1+ H Urine Nitrate Negative Urine Bilirubin Negative Urine Urobilinogen 0.2 Ur Leukocyte Esterase 1+ H Urine RBC 1-5/hpf Urine WBC 5-10/hpf H Ur Squamous Epith Cells 5-10 /hpf H Urine Bacteria Moderate (10-30) H Ur Culture Indicated? Specimen cultured Chlamy pneumoniae PCR Not detected Adenovirus (PCR) Not detected B.parapertussis DNA PCR Not detected Coronavirus OC43 (PCR) Not detected Coronavirus HKU1 (PCR) Not detected Coronavirus 229E (PCR) Not detected SARS-CoV-2 (PCR) Detected Coronavirus NL63 (PCR) Not detected Human Metapneumovir PCR Not detected Influenza Type A (PCR) Not detected Influenza Type B (PCR) Not detected M. pneumoniae (PCR) Not detected Parainfluenza 1 (PCR) Not detected Parainfluenza 2 (PCR) Not detected Parainfluenza 3 (PCR) Not detected Parainfluenza 4 (PCR) Not detected RSV (PCR) Not detected Entero/Rhino (PCR) Not detected 03/14/23 03/15/23 22:09 03:52 WBC RBC Hgb Hct MCV MCH MCHC RDW Plt Count Neut % (Auto) Lymph % (Auto) [place] % (Auto) Eos % (Auto) Baso % (Auto) Neut # (Auto) Lymph # (Auto) [place] # (Auto) Eos # (Auto) Baso # (Auto) Sodium 132 L Potassium 3.2 L Chloride 99 Carbon Dioxide 23 BUN 25 H Creatinine 0.85 Estimated GFR > 60 BUN/Creatinine Ratio 29.4 H Glucose 105 Lactate Calcium 9.6 Magnesium 2.0 Total Bilirubin AST ALT Alkaline Phosphatase Total Creatine Kinase Troponin I 0.031 0.039 H NT-Pro-B Natriuret Pep Total Protein Albumin Globulin Albumin/Globulin Ratio Procalcitonin TSH 1.77 Urine Color Urine Appearance Urine pH Ur Specific [place] Urine Protein Urine Glucose (UA) Urine Ketones Urine Occult Blood Urine Nitrate Urine Bilirubin Urine Urobilinogen Ur Leukocyte Esterase Urine RBC Urine WBC Ur Squamous Epith Cells Urine Bacteria Ur Culture Indicated? Chlamy pneumoniae PCR Adenovirus (PCR) B.parapertussis DNA PCR Coronavirus OC43 (PCR) Coronavirus HKU1 (PCR) Coronavirus 229E (PCR) SARS-CoV-2 (PCR) Coronavirus NL63 (PCR) Human Metapneumovir PCR Influenza Type A (PCR) Influenza Type B (PCR) M. pneumoniae (PCR) Parainfluenza 1 (PCR) Parainfluenza 2 (PCR) Parainfluenza 3 (PCR) Parainfluenza 4 (PCR) RSV (PCR) Entero/Rhino (PCR) PFSH Medical History (Updated 03/14/23 @ 22:02 by Lee Zheng MD) Sleep apnea (~1997) Asthma (~1992) Rubella Mumps Tinnitus (~1991) Hearing loss (~2010) Cataracts, bilateral (~2021) History of urinary incontinence Skin cancer (~2009) Prostate cancer (~1994) Chronic anticoagulation Stress incontinence after surgical procedure Hx of cardiac pacemaker Hx of malignant neoplasm of prostate History of asthma Atrial fibrillation Hyperlipidemia Bladder cancer (~2003) Benign essential HTN COPD (chronic obstructive pulmonary disease) (~2005) CHF (congestive heart failure) Varicella Surgical History (Updated 11/10/22 @ 20:03 by Sondra Benedict) History of bladder surgery History of cataract removal with insertion of prosthetic lens (~2021) Status post implantation of artificial urinary sphincter History of transurethral resection of bladder tumor (TURBT) Hx of vasectomy History of transurethral resection of prostate History of circumcision Hx of cholecystectomy 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) Status post prostatectomy Family History (Updated 11/10/22 @ 20:06 by Sondra Bendeict) Father Cancer CAD (coronary artery disease) Hyperlipidemia Hypertension Mother Diabetes mellitus Hypertension Brother Diabetes mellitus Hypertension Sister Drug abuse Sister COPD (chronic obstructive pulmonary disease) Social History marital status: number of children: 3 household members: none occupational status: other Smoking Status: Former smoker Tobacco: How many years used: 15 alcohol intake: current caffeine: Yes Type(s) of exercise: walking and other Discharge Plan Discharge Plan Patient Disposition: Home Provider Discharge Comment: You were admitted to the hospital with COVID and possible urinary tract infection. You felt improved after overnight observation. You may have had mild volume overload as well from the pneumonia / covid infection. I have sent you another 6 days of antibiotics to complete treatment for urinary infection and possible pneumonia (though one of the antibiotics for pneumonia is only 5 days). No changes to torsemide dosing are recommended. No other medication changes are recommended. Discharge orders & Medications Prescriptions: New cefdinir 300 mg capsule 300 mg PO BID 6 Days Qty: 12 0RF doxycycline hyclate 100 mg tablet 100 mg PO BID 5 Days Qty: 10 0RF Continued albuterol sulfate [ProAir HFA] 90 mcg/actuation HFA aerosol inhaler 1 - 2 inh inhalation ONCE PRN (Reason: shortness of breath or wheezing) Qty: 8.5 11RF montelukast 10 mg tablet 50 mg PO DAILY atorvastatin 40 mg tablet 40 mg PO DAILY metoprolol succinate 50 mg tablet extended release 24 hr 50 mg PO DAILY omeprazole 40 mg capsule,delayed release(DR/EC) 40 mg PO DAILY potassium chloride 20 mEq tablet extended release See Rx Instructions .ROUTE .COMPLEX Rx Instructions: Take two tablets by mouth in the morning and one tablet by mouth in the evening. Jardiance 10 mg tablet 10 mg PO DAILY Entresto 49-51 mg tablet 1 tab PO BID Trelegy Ellipta 200-62.5-25 mcg blister with device 1 ea inhalation DAILY Eliquis 5 mg tablet 5 mg PO BID torsemide 40 mg tablet 80 mg PO BID Follow up/Referrals: Karen Pollard DO [Primary Care Provider] - Diet/Activity/Treatments Diet: Diet as Tolerated and Low-sodium Activity: As tolerated, no restrictions Visit Report/Discharge Packet Instructions: DI for Heart Failure, How to Prevent Falls, DI for COVID-19 (Suspected or Confirmed ) Stand Alone Forms: Patient Portal/API, Stroke Signs & Symptoms Discharge Data Primary Care Provider: Karen Pollard Discharges patient from system. Discharge Date/Time: 03/15/23 11:35 Quality VTE Deep Vein Thrombosis/Pulmonary Embolism Present on Admission: No
--- NOTE | 2023-03-15 09:33 | CM.DANOTE ---
DCP: Case received, EMR reviewed. Did not meet with patient, due to his being in isolation, COVID positive. Called patient's cell phone. Introduced self and role. Was able to obtain information regarding his baseline activity status at home, as well his current living situation. Patient came to the hospital via private vehicle secondary to having 3 days of fatigue, not feeling well. Patient has history of CHF, pacemaker, two CABGS, diabetes type 2, patient is on blood thinners. Patient was diagnosed with COVID, CHF. Called patient's room, since in isolation. Was able to get in touch with him on his cell phone. Confirmed that he resides here in [place] alone, but has son on his property. At his baseline, he is independent and drives. He stated, he really wants to get out of here. P: Patient has discharge orders for home today with no needs. Cara Van RN/Supervisor [employer] Discharge Planning/Care Management CM Discharge Assessment Start: 03/15/23 09:31 Freq: Status: Active Protocol: Document 03/15/23 09:31 (Rec: 03/15/23 09:33 [id number]) Discharge Planning Assessment Assigned Nurse Tech Cara Van RN/Supervisor [employer] Advance Directives? No History Provided By Patient,Medical Record Prior Living Arrangements House Household Members none Type of transporation used prior to Drives own vehicle admit Independent with ADL's Yes Is patient alert and oriented? Yes Caregiver for Another No Barriers to Discharge No Discharge Plan Home Transportation Arrangement Family Referrals Initiated None needed Whiteboard Updated in Patient Room with No name and ext. # of Nurse Tech Comment Patient is COVID positive, did not enter room. Review Status In Process Next Review Type Continued Stay Review
--- NOTE | 2023-03-15 12:03 | PC.NURSE ---
Day shift: Discharge instructions gone over with patient. Patient stated understanding and all questions answered. Gave patient instructions about covid isolation protocols, fall prevention, and CHF. PIV and tele d/c'ed prior to discharge. PCT Chris escorted patient via wheelchair to exit where patient's son picked up. All belongings with patient.
== END 2023-03-15 11:35 | disposition home or self-care (01) | DRG 871 ==
LOC: ED 18:01 → AC 20:49
PROVIDERS: Admitting Provider Internal Medicine; Emergency Provider Physician Assistant Medical; PCP Family Medicine; Referring Provider Physician Assistant Medical; Visit Provider Internal Medicine
DX: A41.9 Sepsis, unspecified organism (principal); U07.1 COVID-19; I48.21 Permanent atrial fibrillation; N30.00 Acute cystitis without hematuria; I50.32 Chronic diastolic (congestive) heart failure; I5A Non-ischemic myocardial injury (non-traumatic); E78.5 Hyperlipidemia, unspecified; I11.0 Hypertensive heart disease with heart failure; J44.9 Chronic obstructive pulmonary disease, unspecified; E80.6 Other disorders of bilirubin metabolism; D69.6 Thrombocytopenia, unspecified; Z79.01 Long term (current) use of anticoagulants; Z95.0 Presence of cardiac pacemaker; Z87.891 Personal history of nicotine dependence; Z95.1 Presence of aortocoronary bypass graft
CPT/HCPCS: 36415; 71046; 76705; 80048; 80053; 81001; 82550; 82962; 83605; 83735; 83880; 84145; 84443; 84484; 85025; 87040; 87077; 87086; 87186; 87633; 93005; 96365; 96375; 99284; 99285; J0696; J1940; J2405

== ENCOUNTER → 2023-04-03 10:32 | Outpatient (CLI) | payer MEDICARE, OTHER, SELFPAY ==
[2023-03-14 21:50] VITALS: BMI 35.1
[2023-04-03 12:11] LABS: Add Manual Diff / Slide Review NO; Basophils Absolute Auto 0 /uL (0-100); Basophils Percent Auto 0.9 % (0-2); Eosinophils Absolute Auto 100 /uL (0-450); Eosinophils Percent Auto 0.9 % (2-4); Hematocrit 38.1 % (41-53); Hemoglobin 13.4 g/dL (13.5-17.5); Lymphocytes Absolute Auto 800 /uL (1100-4500); Lymphocytes Percent Auto 13.1 % (25-40); Mean Corpuscular HGB Conc 35.2 % (30-36); Mean Corpuscular Hemoglobin 32.7 PG (26-34); Mean Corpuscular Volume 92.7 fL (80-100); Monocytes Absolute Auto 800 /uL (0-900); Monocytes Percent Auto 13.2 % (3-14); Neutrophils Absolute Auto 4200 /uL (1500-7000); Neutrophils Percent Auto 71.9 % (50-75); Platelet Count 142 X10^3/uL (150-400); Red Cell Distribution Width 14.4 % (11.6-14.8); White Blood Cell Count 5.9 X10^3/uL (4.5-11.0)
[2023-04-03 12:26] LABS: Alanine Aminotransferase 19 IU/L (<50); Albumin 4.1 g/dL (3.5-5.0); Albumin Globulin Ratio 1.4 (1.0-2.8); Alkaline Phosphatase 133 U/L (38-126); Aspartate Aminotransferase 26 IU/L (17-59); BUN Creatinine Ratio 28.8 (6-22); Bilirubin Total 0.7 mg/dL (0.2-1.3); Blood Urea Nitrogen 19 mg/dL (9-20); Calcium 10.2 mg/dL (8.4-10.2); Carbon Dioxide 30 mmol/L (22-32); Chloride 98 mmol/L (98-107); Estimated Glomerular Filt Rate > 60 mL/min (>60); Glucose 115 mg/dL (80-110); HEMOLYSIS < 15 (0-50); Potassium 3.7 mmol/L (3.4-5.1); Sodium 136 mmol/L (137-145); Total Protein 7.1 g/dL (6.3-8.2)
== END ==
PROVIDERS: PCP Family Medicine; Referring Provider Family Medicine; Visit Provider Family Medicine
DX: J44.9 Chronic obstructive pulmonary disease, unspecified (principal); I50.9 Heart failure, unspecified
CPT/HCPCS: 36415; 80053; 85025

== ENCOUNTER 2023-04-09 11:14 | Emergency (ER) | payer MEDICARE, OTHER, SELFPAY ==
[2023-03-14 21:50] VITALS: BMI 35.1
[2023-04-09 11:26] VITALS: BP 135/61; PULSE 60; RESP 28; TEMP 37.1; O2SAT 99; BMI 30.4
--- NOTE | 2023-04-09 11:34 | DI.RAD.S_ITS ---
PROCEDURE: XR CHEST 1V INDICATIONS: Shortness of breath TECHNIQUE: One view of the chest was acquired. COMPARISON: [facility], , XR CHEST 2V, 03/14/2023, 17:14. FINDINGS: Surgical changes and devices: Left chest wall pacemaker. Median sternotomy wires. Lungs and pleura: Lungs are clear. No pleural effusions or pneumothorax. Mediastinum: Mediastinal contours appear normal. Heart size is normal. Bones and chest wall: No suspicious bony lesions. Overlying soft tissues appear unremarkable. IMPRESSION: No focal pulmonary consolidations. Dictated by: Imtiaz Schuster M.D. on 04/09/2023 at 12:16 Approved by: Imtiaz Schuster M.D. on 04/09/2023 at 12:18
[2023-04-09 11:58] LABS: Add Manual Diff / Slide Review NO; Basophils Absolute Auto 0 /uL (0-100); Basophils Percent Auto 0.2 % (0-2); Eosinophils Absolute Auto 0 /uL (0-450); Eosinophils Percent Auto 0.1 % (2-4); Hematocrit 37.1 % (41-53); Hemoglobin 13.1 g/dL (13.5-17.5); Lymphocytes Absolute Auto 300 /uL (1100-4500); Lymphocytes Percent Auto 3.6 % (25-40); Mean Corpuscular HGB Conc 35.3 % (30-36); Mean Corpuscular Hemoglobin 32.6 PG (26-34); Mean Corpuscular Volume 92.3 fL (80-100); Monocytes Absolute Auto 1100 /uL (0-900); Monocytes Percent Auto 11.3 % (3-14); Neutrophils Absolute Auto 8000 /uL (1500-7000); Neutrophils Percent Auto 84.8 % (50-75); Platelet Count 109 X10^3/uL (150-400); Red Blood Cell Count 4.02 X10^6/uL (4.5-5.9); Red Cell Distribution Width 14.8 % (11.6-14.8); White Blood Cell Count 9.5 X10^3/uL (4.5-11.0)
[2023-04-09 12:00] LABS: INR 1.8 (0.9-1.3); Prothrombin Time 20.4 SECONDS (10.1-12.7)
[2023-04-09 12:07] LABS: Bacteria Urine Many (>30); Culture Indicated Urine Specimen Cultured; RBC Urine 5-10/HPF (0-5/HPF); Squamous Epithelial Cell Urine 1-5 /HPF (0-5/HPF); WBC Urine >100/HPF (0-5/HPF)
[2023-04-09 12:08] LABS: Alanine Aminotransferase 18 IU/L (<50); Albumin 3.9 g/dL (3.5-5.0); Albumin Globulin Ratio 1.2 (1.0-2.8); Alkaline Phosphatase 99 U/L (38-126); Aspartate Aminotransferase 23 IU/L (17-59); BUN Creatinine Ratio 23.5 (6-22); Bilirubin Total 1.8 mg/dL (0.2-1.3); Blood Urea Nitrogen 19 mg/dL (9-20); Calcium 10.2 mg/dL (8.4-10.2); Carbon Dioxide 26 mmol/L (22-32); Chloride 97 mmol/L (98-107); Estimated Glomerular Filt Rate > 60 mL/min (>60); Globulin 3.3 g/dL (1.7-4.1); Glucose 116 mg/dL (80-110); HEMOLYSIS 19 (0-50); Lactate (Lactic Acid) 1.9 mmol/L (0.7-2.1); Potassium 4.1 mmol/L (3.4-5.1); Sodium 133 mmol/L (137-145); Total Protein 7.2 g/dL (6.3-8.2)
[2023-04-09 12:19] LABS: NT-proBNP (BNP-Adult 18+) 1240 pg/mL (<450); Troponin I 0.013 ng/mL (0.01-0.034)
--- NOTE | 2023-04-09 12:25 | ED.GENADULT ---
HPI - General Adult General Chief complaint: Shortness of Breath/Dyspnea Stated complaint: SOB, Tired, legs not working right Time Seen by Provider: 04/09/23 12:06 Source: patient and family Mode of arrival: Wheelchair History of Present Illness HPI narrative: Patient here for multiple complaints. Patient discharge here from this hospital last month for COVID/pneumonia/AFib. He did follow up with the primary care 3 days ago. No changes in his health he states at the time. However now he is here today for shortness of breath leg weakness and difficulty with urination. He feels tired and weak. No chest pain no cough. No nausea or vomiting diarrhea no black or bloody stools. Related Data Home Medications Medication Instructions Recorded Confirmed atorvastatin 40 mg tablet 40 mg PO DAILY 08/12/22 04/14/23 metoprolol succinate 50 mg 50 mg PO DAILY 08/12/22 04/14/23 tablet,extended release 24 hr montelukast 10 mg tablet 50 mg PO DAILY 08/12/22 04/14/23 omeprazole 40 mg capsule,delayed 40 mg PO DAILY 08/12/22 04/14/23 release apixaban 5 mg tablet (Eliquis) 5 mg PO BID 11/06/22 04/14/23 torsemide 40 mg tablet 80 mg PO BID 11/06/22 04/14/23 potassium chloride 20 mEq See Rx Instructions .Route .COMPLEX 02/18/23 04/14/23 tablet,extended release empagliflozin 10 mg tablet 10 mg PO DAILY 03/14/23 04/14/23 (Jardiance) fluticasone fur. 200 mcg-umeclid 1 ea inhalation DAILY 03/14/23 04/14/23 62.5 mcg-vilant 25 mcg inhalat.powder (Trelegy Ellipta) sacubitril 49 mg-valsartan 51 mg 1 tab PO BID 03/14/23 04/14/23 tablet (Entresto) Previous Rx's Medication Instructions Recorded albuterol sulfate 90 mcg/actuation 1 - 2 inh inhalation ONCE PRN 11/10/22 aerosol inhaler (ProAir HFA) shortness of breath or wheezing #8.5 grams sulfamethoxazole 400 1 tab PO BID #10 tabs 04/09/23 mg-trimethoprim 80 mg tablet (Bactrim) ciprofloxacin HCl 500 mg tablet 500 mg PO BID #30 tabs 04/14/23 cefdinir 300 mg capsule 300 mg PO BID #30 caps 04/17/23 Allergies Allergy/AdvReac Type Severity Reaction Status Date / Time Penicillins Allergy Unknown Verified 04/09/23 11:30 Review of Systems Review of Systems Narrative: GENERAL: Pause chills, fatigue, malaise, negative fever, sweats. HEENT: negative sinus pain, ear pain, sore throat RESPIRATORY: Positive dyspnea, negative cough CARDIOVASCULAR: negative chest pain, palpitations GASTROINTESTINAL: negative nausea, vomiting, abdominal pain : negative dysuria, frequency, hematuria, positive difficulty urination MUSCULOSKELETAL: negative muscle or bony pain SKIN: negative rash, skin lesions NEUROLOGIC: negative weakness, numbness ROS Unobtainable: All systems reviewed & are unremarkable except as noted in HPI and below Patient History Medical History (Updated 04/14/23 @ 16:47 by Reggie Estevez MD) Scrotal swelling Sleep apnea (~1997) Asthma (~1992) Rubella Mumps Tinnitus (~1991) Hearing loss (~2010) Cataracts, bilateral (~2021) History of urinary incontinence Skin cancer (~2009) Prostate cancer (~1994) Chronic anticoagulation Stress incontinence after surgical procedure Hx of cardiac pacemaker Hx of malignant neoplasm of prostate History of asthma Atrial fibrillation Hyperlipidemia Bladder cancer (~2003) Benign essential HTN COPD (chronic obstructive pulmonary disease) (~2005) CHF (congestive heart failure) Varicella Surgical History (Updated 11/10/22 @ 20:03 by Sondra Benedict) History of bladder surgery History of cataract removal with insertion of prosthetic lens (~2021) Hx of vasectomy History of transurethral resection of prostate History of circumcision Hx of cholecystectomy 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 History of transurethral resection of bladder tumor (TURBT) S/P AAA repair (~2012) Status post prostatectomy Family History (Updated 11/10/22 @ 20:06 by Sondra Benedict) Father Cancer CAD (coronary artery disease) Hyperlipidemia Hypertension Mother Diabetes mellitus Hypertension Brother Diabetes mellitus Hypertension Sister Drug abuse Sister COPD (chronic obstructive pulmonary disease) Social History marital status: number of children: 3 household members: none occupational status: other Smoking Status: Former smoker Tobacco: How many years used: 15 alcohol intake: current caffeine: Yes Type(s) of exercise: walking and other Smoking Status: Former smoker alcohol intake frequency: 0-2 drinks per day Substance Use Type: does not use Exam Narrative Exam Narrative: GENERAL: in no distress, not toxic not dyspneic HEAD: Normocephalic. EYES: Pupils equal round ENT: Mucous membranes moist. NECK: Trachea midline. CARDIOVASCULAR: Regular rate and rhythm RESPIRATORY: Clear to auscultation. Breath sounds equal bilaterally. No wheezes, rales, or rhonchi. Speaking full sentences GASTROINTESTINAL: Abdomen soft, non-tender no CVA tenderness EXTREMITIES: No gross deformities. BACK: No flank tenderness. NEURO: AOx4. Clear speech. Patient able to stand at bedside to urinate. SKIN: Warm and dry PSYCH: Not anxious, is cooperative Initial Vital Signs Initial Vital Signs: Vital Signs Temperature 98.8 F 04/09/23 11:26 Pulse Rate 60 04/09/23 11:26 Respiratory Rate 28 H 04/09/23 11:26 Blood Pressure 135/61 04/09/23 11:26 Pulse Oximetry 99 04/09/23 11:26 Oxygen Delivery Method Room Air 04/09/23 11:26 Course Orders Ordered: Discontinued Medications Acetaminophen (Acetaminophen 325 Mg Tablet) 975 mg PO NOW ONE Stop: 04/09/23 12:34 Last Admin: 04/09/23 13:16 Dose: 975 mg Documented By: ALLY Trimethoprim/Sulfamethoxazole (Trimeth/Sulfa 160/800 (Ds) Tablet) 1 tab PO NOW ONE Stop: 04/09/23 13:29 Last Admin: 04/09/23 13:34 Dose: 1 tab Documented By: ALLY Vital Signs Vital signs: Vital Signs - 8 hr 04/09/23 11:26 04/09/23 12:30 04/09/23 13:13 Temperature 98.8 F 103.7 F H Pulse Rate 60 60 Respiratory Rate 28 H 18 Blood Pressure 135/61 123/57 L Pulse Oximetry 99 97 Oxygen Delivery Method Room Air Room Air 04/09/23 13:16 Temperature 103.7 F H Pulse Rate Respiratory Rate Blood Pressure Pulse Oximetry Oxygen Delivery Method Medical Decision Making Lab Data 04/09/23 11:44 04/09/23 11:44 Labs: Lab Results 04/09/23 04/09/23 04/09/23 Range/Units 11:36 11:44 12:31 WBC 9.5 (4.5-11.0) X10^3/uL RBC 4.02 L (4.5-5.9) X10^6/uL Hgb 13.1 L (13.5-17.5) g/dL Hct 37.1 L (41-53) % MCV 92.3 (80-100) fL MCH 32.6 (26-34) PG MCHC 35.3 (30-36) % RDW 14.8 (11.6-14.8) % Plt Count 109 L (150-400) X10^3/uL Neut % (Auto) 84.8 H (50-75) % Lymph % (Auto) 3.6 L (25-40) % [place] % (Auto) 11.3 (3-14) % Eos % (Auto) 0.1 L (2-4) % Baso % (Auto) 0.2 (0-2) % Neut # (Auto) 8000 H (7408-2263) /uL Lymph # (Auto) 300 L (9832-6452) /uL [place] # (Auto) 1100 H (0-900) /uL Eos # (Auto) 0 (0-450) /uL Baso # (Auto) 0 (0-100) /uL PT 20.4 H (10.1-12.7) SECONDS INR 1.8 H (0.9-1.3) Sodium 133 L (137-145) mmol/L Potassium 4.1 (3.4-5.1) mmol/L Chloride 97 L (98-107) mmol/L Carbon Dioxide 26 (22-32) mmol/L BUN 19 (9-20) mg/dL Creatinine 0.81 (0.66-1.25) mg/dL Estimated GFR > 60 (>60) mL/min BUN/Creatinine Ratio 23.5 H (6-22) Glucose 116 H (80-110) mg/dL Lactate 1.9 (0.7-2.1) mmol/L Calcium 10.2 (8.4-10.2) mg/dL Total Bilirubin 1.8 H (0.2-1.3) mg/dL AST 23 (17-59) IU/L ALT 18 (<50) IU/L Alkaline Phosphatase 99 (38-126) U/L Troponin I 0.013 (0.01-0.034) ng/mL NT-Pro-B Natriuret Pep 1240 H (<450) pg/mL Total Protein 7.2 (6.3-8.2) g/dL Albumin 3.9 (3.5-5.0) g/dL Globulin 3.3 (1.7-4.1) g/dL Albumin/Globulin Ratio 1.2 (1.0-2.8) Urine RBC 5-10/hpf H (0-5/HPF) Urine WBC >100/hpf H (0-5/HPF) Ur Squamous Epith Cells 1-5 /hpf (0-5/HPF) Urine Bacteria Many (>30) H (None) Ur Culture Indicated? Specimen cultured Chlamy pneumoniae PCR Not detected (Not Detect) Adenovirus (PCR) Not detected (Not Detect) B.parapertussis DNA PCR Not detected (Not Detecte) Coronavirus OC43 (PCR) Not detected (Not Detect) Coronavirus HKU1 (PCR) Not detected (Not Detect) Coronavirus 229E (PCR) Not detected (Not Detect) SARS-CoV-2 (PCR) Not detected (Not Detecte) Coronavirus NL63 (PCR) Not detected (Not Detect) Human Metapneumovir PCR Not detected (Not Detect) Influenza Type A (PCR) Not detected (Not Detect) Influenza Type B (PCR) Not detected (Not Detect) M. pneumoniae (PCR) Not detected (Not Detect) Parainfluenza 1 (PCR) Not detected (Not Detect) Parainfluenza 2 (PCR) Not detected (Not Detect) Parainfluenza 3 (PCR) Not detected (Not Detect) Parainfluenza 4 (PCR) Not detected (Not Detect) RSV (PCR) Not detected (Not Detect) Entero/Rhino (PCR) Not detected (Not Detect) Urine Dip Bedside Urine Glucose 1000 mg/dl Bedside Urine Bilirubin - Negative Bedside Urine Ketone - Negative Urine Specific [place] 1.010 Bedside Urine Occult Blood ++ Bedside Urine pH 6.5 Bedside Urine Protein +/- 15 Bedside Urine Urobilinogen - Negative Bedside Urine Nitrite + Positive Bedside Urine Leukocytes ++ 125 Esterase Point of care testing: Urine Dip Bedside Urine Glucose 1000 mg/dl Bedside Urine Bilirubin - Negative Bedside Urine Ketone - Negative Urine Specific [place] 1.010 Bedside Urine Occult Blood ++ Bedside Urine pH 6.5 Bedside Urine Protein +/- 15 Bedside Urine Urobilinogen - Negative Bedside Urine Nitrite + Positive Bedside Urine Leukocytes ++ 125 Esterase Imaging Data Chest x-ray: Radiologist's Impression: [address] [address] XRay Report Signed Patient: Aamir Montelongo MR#: [id number] : 1940 Acct:[id number] Age/Sex: 82 / M Date of Service: 04/09/23 Loc: ED Accession Number: [id number] Procedure: XR chest 1V Ordering Provider: Reggie Busby MD PROCEDURE: XR CHEST 1V INDICATIONS: Shortness of breath TECHNIQUE: One view of the chest was acquired. COMPARISON: [facility], , XR CHEST 2V, 03/14/2023, 17:14. FINDINGS: Surgical changes and devices: Left chest wall pacemaker. Median sternotomy wires. Lungs and pleura: Lungs are clear. No pleural effusions or pneumothorax. Mediastinum: Mediastinal contours appear normal. Heart size is normal. Bones and chest wall: No suspicious bony lesions. Overlying soft tissues appear unremarkable. IMPRESSION: No focal pulmonary consolidations. Dictated by: Imtiaz Schuster M.D. on 04/09/2023 at 12:16 Approved by: Imtiaz Schuster M.D. on 04/09/2023 at 12:18 [facility] Narrative Medical decision making narrative: Patient here for multiple complaints. Patient discharge here from this hospital last month for COVID/pneumonia/AFib. He did follow up with the primary care 3 days ago. No changes in his health he states at the time. However now he is here today for shortness of breath leg weakness and difficulty with urination. He feels tired and weak. No chest pain no cough. No nausea or vomiting diarrhea no black or bloody stools. After history and exam CBC CMP urinalysis respiratory panel EKG chest x-ray BNP viral swab [facility] CC: Short of breath weak difficulty urinating Complicating co-morbidities: AFib recent admission, recent COVID Data collected from: Patient Medical records reviewed: Discharge summary from this hospital last month Differential considered: Includes but not limited to UTI sepsis pneumonia AFib electrolyte imbalance dehydration Exam documented above, pertinent findings include: Clear and equal lung sounds Lab Test results independently reviewed as above. Pertinent findings: WBC 9.5 hemoglobin 13.1 INR 1.8 sodium 133 potassium 4.1 BUN 19 creatinine 0.81 GFR greater than 60 glucose 116 AST 23 ALT 18, BNP 1240, clinically not CHF exacerbation. Patient does have chronically elevated BNP Lactic acid 1.9 Urinalysis greater than 100 WBC many bacteria Independently reviewed EKG ventricular paced rhythm Imaging studies independently reviewed: Chest x-ray no acute finding Consultations: None indicated Treatments: Tylenol Re-evaluations: Reviewed results with patient and family. He does see Dr. Estevez for Urology. Patient feeling much better. Rectal temp reviewed with him. Patient is not toxic appearing. He desires discharge home. Return precautions reviewed with him. He desires discharge home Discussion: Appropriate for discharge home. Exam is reassuring. Viral swab is pending but will not electronic data interchange specialist. Patient will be treated for UTI. Not toxic at discharge. Return precautions reviewed with him and family. He desires discharge home. Patient not requiring supplemental oxygen. Shortness of breath likely due to fever. Generalized weakness likely due to fever. He states he has been urinating a lot. Not oliguria. Diagnosis: Acute UTI Discharge Plan Departure Patient Disposition: Home Clinical Impression: Acute UTI Instructions: DI for Urinary Tract Infection (UTI) Activity Restrictions/Additional Instructions: See your urologist next week for re-evaluation of your urinary tract infection or see your family doctor. Prescription antibiotic has been sent to your pharmacy to crab picker today and continue full completion. May use Tylenol for fever. Return if worse if any questions or concerns. Keep well hydrated. You may continue your home medications. Prescriptions: New sulfamethoxazole-trimethoprim [Bactrim] 400-80 mg tablet 1 tab PO BID Qty: 10 0RF No Action albuterol sulfate [ProAir HFA] 90 mcg/actuation HFA aerosol inhaler 1 - 2 inh inhalation ONCE PRN (Reason: shortness of breath or wheezing) Qty: 8.5 11RF cefdinir 300 mg capsule 300 mg PO BID Qty: 30 0RF montelukast 10 mg tablet 50 mg PO DAILY atorvastatin 40 mg tablet 40 mg PO DAILY metoprolol succinate 50 mg tablet extended release 24 hr 50 mg PO DAILY omeprazole 40 mg capsule,delayed release(DR/EC) 40 mg PO DAILY potassium chloride 20 mEq tablet extended release See Rx Instructions .ROUTE .COMPLEX Rx Instructions: Take two tablets by mouth in the morning and one tablet by mouth in the evening. Jardiance 10 mg tablet 10 mg PO DAILY Entresto 49-51 mg tablet 1 tab PO BID Trelegy Ellipta 200-62.5-25 mcg blister with device 1 ea inhalation DAILY Eliquis 5 mg tablet 5 mg PO BID torsemide 40 mg tablet 80 mg PO BID ciprofloxacin HCl 500 mg tablet 500 mg PO BID Qty: 30 0RF Referrals: Reggie Esetvez MD [Physician] - Karen Pollard DO [Primary Care Provider] - Stand Alone Forms: Patient Portal/API
[2023-04-09 12:30] VITALS: BP 123/57; PULSE 60; RESP 18; O2SAT 97
[2023-04-09 13:13] VITALS: TEMP 39.8
[2023-04-09 13:16] VITALS: TEMP 39.8
[2023-04-09] MEDS: ACETAMINOPHEN 325 MG TABLET 975 MG PO (13:16)
[2023-04-09 13:27] LABS: Adenovirus Not Detected (Not Detect); B. parapertussis Not Detected (Not Detecte); Bordetella pertussis Not Detected (Not Detect); Chlamydophila pneumoniae Not Detected (Not Detect); Coronavirus 229E Not Detected (Not Detect); Coronavirus HKU1 Not Detected (Not Detect); Coronavirus NL 63 Not Detected (Not Detect); Coronavirus OC43 Not Detected (Not Detect); Human Metapneumovirus Not Detected (Not Detect); Human Rhinovirus/Enterovirus Not Detected (Not Detect); Influenza A Not Detected (Not Detect); Influenza B Not Detected (Not Detect); Mycoplasma pneumoniae Not Detected (Not Detect); Parainfluenza Virus 1 Not Detected (Not Detect); Parainfluenza Virus 2 Not Detected (Not Detect); Parainfluenza Virus 3 Not Detected (Not Detect); Parainfluenza Virus 4 Not Detected (Not Detect); Respiratory Syncytial Virus Not Detected (Not Detect); SARS- CoV-2 Not Detected (Not Detecte)
[2023-04-09] MEDS: TRIMETH/SULFA 160/800 (DS) TABLET 1 TAB PO (13:34)
[2023-04-09 13:50] VITALS: BP 119/58; PULSE 60; O2SAT 99
== END 2023-04-09 13:55 | disposition home or self-care (01) ==
PROVIDERS: Emergency Provider Emergency Medicine; PCP Family Medicine
DX: N39.0 Urinary tract infection, site not specified (principal); R06.02 Shortness of breath; Z79.01 Long term (current) use of anticoagulants
CPT/HCPCS: 36415; 71045; 80053; 81003; 81015; 83605; 83880; 84484; 85025; 85610; 87077; 87086; 87186; 87633; 93005; 99284

== ENCOUNTER → 2023-04-14 16:44 | Outpatient (CLI) | payer MEDICARE, OTHER, SELFPAY ==
[2023-03-14 21:50] VITALS: BMI 35.1
== END ==
PROVIDERS: PCP Family Medicine; Visit Provider Urology
DX: N30.00 Acute cystitis without hematuria (principal); N39.3 Stress incontinence (female) (male); N99.89 Other postprocedural complications and disorders of genitourinary system; N50.89 Other specified disorders of the male genital organs; Z79.01 Long term (current) use of anticoagulants; Z96.0 Presence of urogenital implants; Z86.03 Personal history of neoplasm of uncertain behavior; Z90.79 Acquired absence of other genital organ(s); Z98.890 Other specified postprocedural states
CPT/HCPCS: 87077; 87086; 87186; 99214

== ENCOUNTER → 2023-04-15 11:12 | Outpatient (CLI) | payer MEDICARE, OTHER, SELFPAY ==
[2023-03-14 21:50] VITALS: BMI 35.1
--- NOTE | 2023-04-15 11:14 | DI.US.S_ITS ---
PROCEDURE: US SCROTUM INDICATIONS: SWELLING TECHNIQUE: Real-time scanning was performed of the scrotum and testicles, with image documentation. Color and pulse Doppler interrogation was performed of both testicles. COMPARISON: None. FINDINGS: Right: Testicle is normal in size at 3.6 x 2.8 x 1.7 cm with mild heterogeneous echotexture. There is an intratesticular cyst measuring 4 millimeters. Epididymis is normal in overall size . There are multiple epididymal cysts with the largest cluster in the epididymal head. No hydrocele. Varicoceles with venous stasis. There is increased scrotal wall thickening and hyperemia at the site of the urinary mechanical sphincter device. Left: Testicle is normal in size at 3.4 x 2.7 x 1.5 with mildly heterogeneous echotexture. There is a prominent intratesticular vein the demonstrating venous stasis. Epididymis is normal in overall size with multiple epididymal head cysts. No hydrocele . Varicocele present. Overlying scrotal skin is thickened. There is a cluster of cysts at the superior lateral aspect of the scrotal wall measuring up to 2.3 centimeters Doppler: Color and pulse Doppler demonstrate normal and symmetric arterial flow in both testicles. IMPRESSION: Bilaterally thickened scrotal wall with edema and increased vascularity most notably adjacent to the area of urinary mechanical sphincter device. Recommend correlation with direct physical exam. Bilateral varicoceles with venous stasis as well as left intratesticular venous congestion. Bilateral epididymal head cysts. Dictated by: Jen Alexander M.D. on 04/15/2023 at 22:26 Approved by: Jen Alexander M.D. on 04/15/2023 at 23:03
== END ==
PROVIDERS: PCP Family Medicine; Referring Provider Urology; Visit Provider Urology
DX: N50.89 Other specified disorders of the male genital organs (principal); N50.3 Cyst of epididymis; I86.1 Scrotal varices; I87.8 Other specified disorders of veins
CPT/HCPCS: 76870

== ENCOUNTER → 2023-05-14 10:55 | Outpatient (CLI) | payer MEDICARE, OTHER, SELFPAY ==
[2023-03-14 21:50] VITALS: BMI 35.1
[2023-05-14 11:51] LABS: BUN Creatinine Ratio 26.8 (6-22); Blood Urea Nitrogen 19 mg/dL (9-20); Calcium 10.6 mg/dL (8.4-10.2); Carbon Dioxide 29 mmol/L (22-32); Chloride 97 mmol/L (98-107); Estimated Glomerular Filt Rate > 60 mL/min (>60); Glucose 97 mg/dL (80-110); HEMOLYSIS < 15 (0-50); Potassium 3.8 mmol/L (3.4-5.1); Sodium 134 mmol/L (137-145)
== END ==
PROVIDERS: PCP Family Medicine; Referring Provider Internal Medicine; Visit Provider Internal Medicine
DX: I25.5 Ischemic cardiomyopathy (principal)
CPT/HCPCS: 36415; 80048

== ENCOUNTER → 2023-05-27 10:27 | Outpatient (CLI) | payer MEDICARE, OTHER, SELFPAY ==
[2023-03-14 21:50] VITALS: BMI 35.1
[2023-05-27 12:09] LABS: BUN Creatinine Ratio 23.9 (6-22); Blood Urea Nitrogen 17 mg/dL (9-20); Calcium 10.2 mg/dL (8.4-10.2); Carbon Dioxide 29 mmol/L (22-32); Chloride 97 mmol/L (98-107); Estimated Glomerular Filt Rate > 60 mL/min (>60); Glucose 88 mg/dL (80-110); Sodium 136 mmol/L (137-145)
[2023-05-27 12:10] LABS: HEMOLYSIS 57 (0-50); Potassium 3.7 mmol/L (3.4-5.1)
== END ==
PROVIDERS: PCP Family Medicine; Referring Provider Internal Medicine; Visit Provider Internal Medicine
DX: E83.52 Hypercalcemia (principal); I10 Essential (primary) hypertension; I50.9 Heart failure, unspecified; I48.91 Unspecified atrial fibrillation
CPT/HCPCS: 36415; 80048

== ENCOUNTER → 2023-06-30 14:05 | Outpatient (CLI) | payer MEDICARE, OTHER, SELFPAY ==
[2023-03-14 21:50] VITALS: BMI 35.1
== END ==
PROVIDERS: PCP Family Medicine; Visit Provider Urology
DX: R39.9 Unspecified symptoms and signs involving the genitourinary system (principal)
CPT/HCPCS: 87086

== ENCOUNTER → 2023-08-17 12:11 | Outpatient (CLI) | payer MEDICARE, OTHER, SELFPAY ==
[2023-03-14 21:50] VITALS: BMI 35.1
[2023-08-17 14:18] LABS: BUN Creatinine Ratio 29.4 (6-22); Blood Urea Nitrogen 25 mg/dL (9-20); Calcium 9.8 mg/dL (8.4-10.2); Carbon Dioxide 31 mmol/L (22-32); Chloride 99 mmol/L (98-107); Estimated Glomerular Filt Rate > 60 mL/min (>60); Glucose 91 mg/dL (80-110); HEMOLYSIS < 15 (0-50); Potassium 3.8 mmol/L (3.4-5.1); Sodium 136 mmol/L (137-145)
== END ==
LOC: LAB 12:12
PROVIDERS: PCP Family Medicine; Referring Provider Family Medicine; Visit Provider Family Medicine
DX: I48.91 Unspecified atrial fibrillation (principal); I10 Essential (primary) hypertension
CPT/HCPCS: 36415; 80048

== ENCOUNTER → 2023-10-21 13:19 | Outpatient (CLI) | payer MEDICARE, OTHER, SELFPAY ==
[2023-03-14 21:50] VITALS: BMI 35.1
== END ==
PROVIDERS: Family Provider Family Medicine; PCP Family Medicine; Visit Provider Urology
DX: N39.0 Urinary tract infection, site not specified (principal)
CPT/HCPCS: 87077; 87086; 87186

== ENCOUNTER 2023-10-30 13:45 | Outpatient (RCR) | payer MEDICARE, OTHER, SELFPAY ==
[2023-03-14 21:50] VITALS: BMI 35.1
--- NOTE | 2023-09-22 12:45 | PT.OIE ---
Current Diagnoses Unsteadiness on feet (09/22/23) Other abnormalities of gait and mobility (09/22/23) Other symptoms and signs involving the musculoskeletal system (09/22/23) History of falling (09/22/23) Past Medical History (Last Updated 04/14/23 @ 16:33 by Reggie Estevez MD) Asthma (~1992) Atrial fibrillation Benign essential HTN Bladder cancer (~2003) Cataracts, bilateral (~2021) CHF (congestive heart failure) Chronic anticoagulation COPD (chronic obstructive pulmonary disease) (~2005) Hearing loss (~2010) History of asthma History of urinary incontinence Hx of cardiac pacemaker Hx of malignant neoplasm of prostate Hyperlipidemia Mumps Prostate cancer (~1994) Rubella Scrotal swelling Skin cancer (~2009) Sleep apnea (~1997) Stress incontinence after surgical procedure Tinnitus (~1991) Varicella Past Surgical History (Last Updated 11/10/22 @ 20:03 by Sondra Benedict) History of bladder surgery History of cataract removal with insertion of prosthetic lens (~2021) History of circumcision History of transurethral resection of bladder tumor (TURBT) History of transurethral resection of prostate Hx of cholecystectomy Hx of coronary artery bypass graft Hx of vasectomy S/P 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 Status post prostatectomy Visit Care Team Role Provider Type Karen Pollard DO Attending Provider Physician Family Provider Primary Care Provider Referring Provider Specialty: [facility] Address: [address] [place] [address], [address], [facility] Email: [email or web address] Physical Therapy Initial Evaluation PT-OP-A Visit Information Start: 09/22/23 17:39 Freq: Status: Active Protocol: Document 09/22/23 12:00 DCW (Rec: 09/22/23 17:47 DCW [id number]) Out-Patient Physical Therapy Visit Information Visit Information Visit Type Initial Evaluation Visit Start Time 12:00 Visit Stop Time 12:45 Visit Number 1 Number of [employer] Visits 0 Evaluation Information Evaluation Date 09/22/23 PT-OP-B Current Condition Start: 09/22/23 17:39 Freq: Status: Active Protocol: Document 09/22/23 12:00 DCW (Rec: 09/22/23 17:52 DCW [id number]) Current Condition History of Current Condition Current Complaints LE weakness, instability, difficulty on uneven ground History of Current Condition Pt is an 83 year old male presenting to skilled therapy with complaints of worsening balance. Pt reports difficulty with higher-level activities, such as icy conditions, uneven surfaces, and walking in darkness. Pt reports he has also been struggling more on stairs recently, like my quads don't even work. Biggest complaint is that when he is out gardening, he is unable to squat down and reach outside of his base of support to pull weeds without losing balance. Pt denies any actual falls, but does admits that he has rolled onto the ground from a squatted position when weeding. Personal Factors Other Personal Factors That May Effect HTN, CABG (1980, 1996), Therapy/Recovery Bladder Ca, AAA repair, COPD, Pacemaker PT-OP-C Subjective Start: 09/22/23 17:39 Freq: Status: Active Protocol: Document 09/22/23 12:00 DCW (Rec: 09/22/23 17:47 DCW [id number]) OP-PT Subjective Patient Comments Patient Comments I use my cane if it's icy or something, but it's pretty seldom that I actually get it out. Patient Questionnaires ABC- Activity Specific Balance Confidence Scale ABC Score 61.88% Dizziness Handicap Inventory DHI Score 38% Other Questionnaire Name and Score Falls Efficay Scale - International: PT-OP-D Balance Start: 09/22/23 17:39 Freq: Status: Active Protocol: Document 09/22/23 12:00 DCW (Rec: 09/22/23 17:47 DCW [id number]) Balance Tests Yang Balance Test Yang Balance Test Score 40/56 Yang Balance Assessment Evaluation Sitting to Standing Ability Independent w/Hands Unsupported Stance Safely- 2 minutes Sitting Unsupported, Feet on Floor Safely- 2 minutes Standing to Sitting Ability Safely, Minimal Hand Use Transfer Ability Safely, Minimal Hand Use Unsupported Stance- Eyes Closed Supervision, 10 seconds Unsupported Stance- Eyes Open Independent, <30 seconds Reaching Forward Standing Safely, 5 inches Pick- Up Object From Floor Independent/Safe Look Behind Shoulder - Standing Shifts Weight Unilateral Turning 360 Degrees Supervision/Verbal Cues Unsupported Stance, Alternating Feet on 4 Steps w/Supervision Stair Unsupported Tandem Stance Small Step- 30 seconds Unilateral Leg Stance Lifts Leg/Unable to Hold Total Score Yang Total Score (out of 56 points) 40 Yang Impairment Rating 20 to 39% Impaired (Score 34- 44) PT-OP-E Functional Tests Start: 09/22/23 17:39 Freq: Status: Active Protocol: Document 09/22/23 12:00 DCW (Rec: 09/22/23 17:47 DCW [id number]) Functional Tests 30 Second Sit to Stand Test Score x9 repetitions Dynamic Gait Index (DGI) Score DGI Impairment Rating 20 to <40% Impaired (Score 15- 19) Timed Up and Go (TUG) Score 12.36 Comments Three-trial average (12.68, 12 .51, 11.90) TUG Impairment Rating 20 to <40% Impaired (Score 12- 13) PT-OP-M Strength Start: 09/22/23 17:39 Freq: Status: Active Protocol: Document 09/22/23 12:00 DCW (Rec: 09/22/23 17:47 DCW [id number]) Hip Strength Hip Manual Muscle Testing Right Flexion (L2) 3+ Fair+ Abduction 4 Good Adduction 4 Good External Rotation 5 Normal Internal Rotation 5 Normal Left Flexion (L2) 3+ Fair+ Abduction 4 Good Adduction 4 Good External Rotation 5 Normal Internal Rotation 5 Normal Knee Strength Knee Manual Muscle Testing Right Flexion (S2) 5 Normal Extension (L3) 5 Normal Left Flexion (S2) 5 Normal Extension (L3) 5 Normal Ankle/Foot Strength Ankle and Foot Manual Muscle Testing Right Dorsiflexion (L4) 4 Good Left Dorsiflexion (L4) 4+ Good+ PT-OP-T Assessment and Plan Start: 09/22/23 17:39 Freq: Status: Active Protocol: Document 09/22/23 12:00 DCW (Rec: 09/23/23 09:32 DCW [id number]) Physical Therapy Assessment Rehab Potential Rehabilitation Potential Good Evaluation Complexity Number of Personal Factors/Comorbidities 3 or More Number of Body Systems Impaired 3 Clinical Presentation at Evaluation Unstable Impairments Impairments Activity Tolerance,Balance, Functional Activities, Functional Mobility,Gait,ROM, Strength,Tone Other Concerns Fall Risk Yes, per Yang (40/56) and DGI () score Goals Two Impairment Pt experiences LOB when out gardening Pharmacy Sales Representative Goal (LTG) Pt to improve Yang score by at least six points to 46/46 in order to demonstrate a decreased falls risk, allowing him to perform gardening activities without losing his balance LTG Duration 11/22/23 One Impairment Pt does not have an appropriate home exercise program Short Term Goal (STG) Pt to be independent and compliant with an appropriate HEP STG Duration 10/22/23 Assessment Summary Assessment Pt presents with signs and symptoms consistent with multifactorial balance issues, including lower extremity weakness, heavy reliance on visual imput for balance, and difficulty with uneven surfaces. Pt should benefit from skilled therapeutic intervention focusing on improving static/dynamic balance, LE strength, uneven surface ambulation, cane use, and increasing activity tolerance. Physical Therapy Plan Frequency and Duration Frequency of Treatment 2x/Week Plan of Care Start Date 09/22/23 Plan of Care End Date 11/22/23 Therapeutic Interventions Therapeutic Interventions Balance Training,Coordination Training,Gait Training,Home Exercise Program,Manual Therapy,Neuromuscular Re- education,Patient/Caregiver Education,Self-Care/Home Management,Soft Tissue Mobilization,Therapeutic Activities,Therapeutic Exercises Next Visit Focus/Plan Next Note Type Treatment Note Next Visit Plan Dynamic gait challenges, uneven surface ambulation, balance challenges
--- NOTE | 2023-09-22 12:46 | PT.OPPOC ---
Physical, Occupational & Speech Therapy At [facility] Current Diagnoses Unsteadiness on feet (09/22/23) Other abnormalities of gait and mobility (09/22/23) Other symptoms and signs involving the musculoskeletal system (09/22/23) History of falling (09/22/23) Visit Care Team Role Provider Type Karen Pollard DO Attending Provider Physician Family Provider Primary Care Provider Referring Provider Specialty: Family Practice Address: [address] [place] [address], [address], [facility] Email: [email or web address] Plan Of Care PT-OP-T Assessment and Plan Start: 09/22/23 17:39 Freq: Status: Active Protocol: Document 09/22/23 12:00 DCW (Rec: 09/23/23 09:32 DCW [id number]) Physical Therapy Assessment Rehab Potential Rehabilitation Potential Good Evaluation Complexity Number of Personal Factors/Comorbidities 3 or More Number of Body Systems Impaired 3 Clinical Presentation at Evaluation Unstable Impairments Impairments Activity Tolerance,Balance, Functional Activities, Functional Mobility,Gait,ROM, Strength,Tone Other Concerns Fall Risk Yes, per Yang (40/56) and DGI () score Goals Two Impairment Pt experiences LOB when out gardening [employer] Goal (LTG) Pt to improve Yang score by at least six points to 46/46 in order to demonstrate a decreased falls risk, allowing him to perform gardening activities without losing his balance LTG Duration 11/22/23 One Impairment Pt does not have an appropriate home exercise program Short Term Goal (STG) Pt to be independent and compliant with an appropriate HEP STG Duration 10/22/23 Assessment Summary Assessment Pt presents with signs and symptoms consistent with multifactorial balance issues, including lower extremity weakness, heavy reliance on visual imput for balance, and difficulty with uneven surfaces. Pt should benefit from skilled therapeutic intervention focusing on improving static/dynamic balance, LE strength, uneven surface ambulation, cane use, and increasing activity tolerance. Physical Therapy Plan Frequency and Duration Frequency of Treatment 2x/Week Plan of Care Start Date 09/22/23 Plan of Care End Date 11/22/23 Therapeutic Interventions Therapeutic Interventions Balance Training,Coordination Training,Gait Training,Home Exercise Program,Manual Therapy,Neuromuscular Re- education,Patient/Caregiver Education,Self-Care/Home Management,Soft Tissue Mobilization,Therapeutic Activities,Therapeutic Exercises Next Visit Focus/Plan Next Note Type Treatment Note Next Visit Plan Dynamic gait challenges, uneven surface ambulation, balance challenges Plan of Care Dates Plan of Care Start Date 09/22/23 Plan of Care End Date 11/22/23 Electronically Signed by: Bucky White, PT 09/23/23 0932 If you are in agreement with this Plan of Care, please return a signed and dated copy. I have reviewed this Plan of Care and certify that the skilled therapy services above are required to meet the patient?s needs. Physician Signature Date Printed Name and Credentials Clinical Instructor Signature Printed Name and Credentials
--- NOTE | 2023-09-25 12:44 | PT.OTN ---
Current Diagnoses Unsteadiness on feet (09/25/23) Other abnormalities of gait and mobility (09/25/23) Other symptoms and signs involving the musculoskeletal system (09/25/23) History of falling (09/25/23) Physical Therapy Treatment Note PT-OP-A Visit Information Start: 09/22/23 17:39 Freq: Status: Active Protocol: Document 09/25/23 12:00 DCW (Rec: 09/25/23 12:43 DCW [id number]) Out-Patient Physical Therapy Visit Information Visit Information Visit Type Treatment Note Visit Start Time 12:00 Visit Stop Time 12:45 Visit Number 2 Number of ASSISTANT STORE MANAGER OPERATIONS Visits 0 Evaluation Information Evaluation Date 09/22/23 PT-OP-B Current Condition Start: 09/22/23 17:39 Freq: Status: Active Protocol: Document 09/22/23 12:00 DCW (Rec: 09/22/23 17:52 DCW [id number]) Current Condition History of Current Condition Current Complaints LE weakness, instability, difficulty on uneven ground History of Current Condition Pt is an 83 year old male presenting to skilled therapy with complaints of worsening balance. Pt reports difficulty with higher-level activities, such as icy conditions, uneven surfaces, and walking in darkness. Pt reports he has also been struggling more on stairs recently, like my quads don't even work. Biggest complaint is that when he is out gardening, he is unable to squat down and reach outside of his base of support to pull weeds without losing balance. Pt denies any actual falls, but does admits that he has rolled onto the ground from a squatted position when weeding. Personal Factors Other Personal Factors That May Effect HTN, CABG (1980, 1996), Therapy/Recovery Bladder Ca, AAA repair, COPD, Pacemaker PT-OP-C Subjective Start: 09/22/23 17:39 Freq: Status: Active Protocol: Document 09/25/23 12:00 DCW (Rec: 09/25/23 12:43 DCW [id number]) OP-PT Subjective Patient Comments Patient Comments Pt feeling pretty good overall today. PT-OP-D Balance Start: 09/22/23 17:39 Freq: Status: Active Protocol: Document 09/22/23 12:00 DCW (Rec: 09/22/23 17:47 DCW [id number]) Balance Tests Yang Balance Test Yang Balance Test Score 40/56 Yang Balance Assessment Evaluation Sitting to Standing Ability Independent w/Hands Unsupported Stance Safely- 2 minutes Sitting Unsupported, Feet on Floor Safely- 2 minutes Standing to Sitting Ability Safely, Minimal Hand Use Transfer Ability Safely, Minimal Hand Use Unsupported Stance- Eyes Closed Supervision, 10 seconds Unsupported Stance- Eyes Open Independent, <30 seconds Reaching Forward Standing Safely, 5 inches Pick- Up Object From Floor Independent/Safe Look Behind Shoulder - Standing Shifts Weight Unilateral Turning 360 Degrees Supervision/Verbal Cues Unsupported Stance, Alternating Feet on 4 Steps w/Supervision Stair Unsupported Tandem Stance Small Step- 30 seconds Unilateral Leg Stance Lifts Leg/Unable to Hold Total Score Yang Total Score (out of 56 points) 40 Yang Impairment Rating 20 to 39% Impaired (Score 34- 44) PT-OP-E Functional Tests Start: 09/22/23 17:39 Freq: Status: Active Protocol: Document 09/22/23 12:00 DCW (Rec: 09/22/23 17:47 [facility] [id number]) Functional Tests 30 Second Sit to Stand Test Score x9 repetitions Dynamic Gait Index (DGI) Score 19 DGI Impairment Rating 20 to <40% Impaired (Score 15- 19) Timed Up and Go (TUG) Score 12.36 Comments Three-trial average (12.68, 12 .51, 11.90) TUG Impairment Rating 20 to <40% Impaired (Score 12- 13) PT-OP-M Strength Start: 09/22/23 17:39 Freq: Status: Active Protocol: Document 09/22/23 12:00 DCW (Rec: 09/22/23 17:47 DCW [id number]) Hip Strength Hip Manual Muscle Testing Right Flexion (L2) 3+ Fair+ Abduction 4 Good Adduction 4 Good External Rotation 5 Normal Internal Rotation 5 Normal Left Flexion (L2) 3+ Fair+ Abduction 4 Good Adduction 4 Good External Rotation 5 Normal Internal Rotation 5 Normal Knee Strength Knee Manual Muscle Testing Right Flexion (S2) 5 Normal Extension (L3) 5 Normal Left Flexion (S2) 5 Normal Extension (L3) 5 Normal Ankle/Foot Strength Ankle and Foot Manual Muscle Testing Right Dorsiflexion (L4) 4 Good Left Dorsiflexion (L4) 4+ Good+ PT-OP-Q Treatments Start: 09/22/23 17:39 Freq: Status: Active Protocol: Document 09/25/23 12:00 DCW (Rec: 09/25/23 12:43 DCW [id number]) Gym Equipment Shuttle Balance Red Details WBOS, Staggered Neuro Re-Education Treatment Balance Activities SLS Details SLS Equipment // bars Tandem Details Tandem Stance Equipment // bars Dynamic Gait Details Hallway Ambulation Comments Head turns (80 bpm) - Horizontal, Vertical Uneven surface Details Ambulation over uneven blue pad Hurdles Details Hurdles/Foam Equipment // bars Comments Fwd, Tandem PT-OP-T Assessment and Plan Start: 09/22/23 17:39 Freq: Status: Active Protocol: Document 09/25/23 12:00 DCW (Rec: 09/25/23 12:43 DCW [id number]) Physical Therapy Assessment Assessment Summary Assessment Pt did well with balance challenges, although did display some difficulty with the higher-level activities. Recommended pt practice tandem stance and NBOS with head turns for HEP, with counter top or chair nearby for stabilization if needed. Physical Therapy Plan Frequency and Duration Frequency of Treatment 2x/Week Plan of Care Start Date 09/22/23 Plan of Care End Date 11/22/23 Therapeutic Interventions Therapeutic Interventions Balance Training,Coordination Training,Gait Training,Home Exercise Program,Manual Therapy,Neuromuscular Re- education,Patient/Caregiver Education,Self-Care/Home Management,Soft Tissue Mobilization,Therapeutic Activities,Therapeutic Exercises Next Visit Focus/Plan Next Note Type Treatment Note Next Visit Plan Dynamic gait challenges, uneven surface ambulation, balance challenges
--- NOTE | 2023-09-29 12:12 | PT.OTN ---
Current Diagnoses Unsteadiness on feet (09/29/23) Other abnormalities of gait and mobility (09/29/23) Other symptoms and signs involving the musculoskeletal system (09/29/23) History of falling (09/29/23) Physical Therapy Treatment Note PT-OP-A Visit Information Start: 09/22/23 17:39 Freq: Status: Active Protocol: Document 09/29/23 11:17 AB (Rec: 09/29/23 12:12 AB [id number]) Out-Patient Physical Therapy Visit Information Visit Information Visit Type Treatment Note Visit Note Visit [email or web address] Access Code: [email or web address] Visit Start Time 11:20 Visit Stop Time 12:03 Visit Number 3 Number of SENIOR TECHNICAL ARCHITECT Visits 1 Evaluation Information Evaluation Date 09/22/23 PT-OP-B Current Condition Start: 09/22/23 17:39 Freq: Status: Active Protocol: Document 09/22/23 12:00 DCW (Rec: 09/22/23 17:52 DCW [id number]) Current Condition History of Current Condition Current Complaints LE weakness, instability, difficulty on uneven ground History of Current Condition Pt is an 83 year old male presenting to skilled therapy with complaints of worsening balance. Pt reports difficulty with higher-level activities, such as icy conditions, uneven surfaces, and walking in darkness. Pt reports he has also been struggling more on stairs recently, like my quads don't even work. Biggest complaint is that when he is out gardening, he is unable to squat down and reach outside of his base of support to pull weeds without losing balance. Pt denies any actual falls, but does admits that he has rolled onto the ground from a squatted position when weeding. Personal Factors Other Personal Factors That May Effect HTN, CABG (1980, 1996), Therapy/Recovery Bladder Ca, AAA repair, COPD, Pacemaker PT-OP-C Subjective Start: 09/22/23 17:39 Freq: Status: Active Protocol: Document 09/29/23 11:17 AB (Rec: 09/29/23 12:12 AB [id number]) OP-PT Subjective Patient Comments Patient Comments Patient reports he is about the same, comments he did some of the exercise is not doing well with the standing on one leg. right LE step up with UE support increased effort to perform task compared to left LE. PT-OP-D Balance Start: 09/22/23 17:39 Freq: Status: Active Protocol: Document 09/22/23 12:00 DCW (Rec: 09/22/23 17:47 DCW [id number]) Balance Tests Yang Balance Test Yang Balance Test Score 40/56 Yang Balance Assessment Evaluation Sitting to Standing Ability Independent w/Hands Unsupported Stance Safely- 2 minutes Sitting Unsupported, Feet on Floor Safely- 2 minutes Standing to Sitting Ability Safely, Minimal Hand Use Transfer Ability Safely, Minimal Hand Use Unsupported Stance- Eyes Closed Supervision, 10 seconds Unsupported Stance- Eyes Open Independent, <30 seconds Reaching Forward Standing Safely, 5 inches Pick- Up Object From Floor Independent/Safe Look Behind Shoulder - Standing Shifts Weight Unilateral Turning 360 Degrees Supervision/Verbal Cues Unsupported Stance, Alternating Feet on 4 Steps w/Supervision Stair Unsupported Tandem Stance Small Step- 30 seconds Unilateral Leg Stance Lifts Leg/Unable to Hold Total Score Yang Total Score (out of 56 points) 40 Yang Impairment Rating 20 to 39% Impaired (Score 34- 44) PT-OP-E Functional Tests Start: 09/22/23 17:39 Freq: Status: Active Protocol: Document 09/22/23 12:00 DCW (Rec: 09/22/23 17:47 DCW [id number]) Functional Tests 30 Second Sit to Stand Test Score x9 repetitions Dynamic Gait Index (DGI) Score 19/24 DGI Impairment Rating 20 to <40% Impaired (Score 15- 19) Timed Up and Go (TUG) Score 12.36 Comments Three-trial average (12.68, 12 .51, 11.90) TUG Impairment Rating 20 to <40% Impaired (Score 12- 13) PT-OP-M Strength Start: 09/22/23 17:39 Freq: Status: Active Protocol: Document 09/22/23 12:00 DCW (Rec: 09/22/23 17:47 DCW [id number]) Hip Strength Hip Manual Muscle Testing Right Flexion (L2) 3+ Fair+ Abduction 4 Good Adduction 4 Good External Rotation 5 Normal Internal Rotation 5 Normal Left Flexion (L2) 3+ Fair+ Abduction 4 Good Adduction 4 Good External Rotation 5 Normal Internal Rotation 5 Normal Knee Strength Knee Manual Muscle Testing Right Flexion (S2) 5 Normal Extension (L3) 5 Normal Left Flexion (S2) 5 Normal Extension (L3) 5 Normal Ankle/Foot Strength Ankle and Foot Manual Muscle Testing Right Dorsiflexion (L4) 4 Good Left Dorsiflexion (L4) 4+ Good+ PT-OP-Q Treatments Start: 09/22/23 17:39 Freq: Status: Active Protocol: Document 09/29/23 11:17 AB (Rec: 09/29/23 12:12 AB [id number]) Gym Equipment Shuttle Balance Red Details WBOS, Staggered Comments CGA to minimal assist with and without visual scanning. Therapeutic Exercises Sitting Exercises seated hip abduction with band Resistance level 3 band light greeen Reps/Minutes one minute hold then 2X10 without hold Standing Exercises bilateral heel raise Reps/Minutes 2X15 Comments Pt ed importance of lowering heels slowly for carryover to cont fwd momentu sit to stand Reps/Minutes 2X10 Comments verbal cues and patient ed self tact cues for hip hinge Neuro Re-Education Treatment Balance Activities Mat with obsticals under Surface uneven Reps/Duration 6 feet X 1 Comments CGA to minimal assist. step up taps Equipment 8 inch step Reps/Duration X15 X 2 Comments CGA hands above bars SLS Details SLS Equipment // bars Reps/Duration 2 minutes X 2 Comments with and without visual scanning and head turns Tandem Details tandem stepping Equipment //bars Reps/Duration 10 feet X 6 Comments verbal cues for hands above bars, visual scanning and head turns Uneven surface Details marching in place Equipment foam cushion Reps/Duration X15 Comments CGA hands above bars PT-OP-T Assessment and Plan Start: 09/22/23 17:39 Freq: Status: Active Protocol: Document 09/29/23 11:17 AB (Rec: 09/29/23 12:12 AB [id number]) Physical Therapy Assessment Goals Two Impairment Pt experiences LOB when out gardening [employer] Goal (LTG) Pt to improve Yang score by at least six points to 46/46 in order to demonstrate a decreased falls risk, allowing him to perform gardening activities without losing his balance LTG Duration 11/22/23 One Impairment Pt does not have an appropriate home exercise program Short Term Goal (STG) Pt to be independent and compliant with an appropriate HEP STG Duration 10/22/23 Assessment Summary Assessment Aamir reports having no pain end of session, continues to reach for parallel bar within 1-3 seconds during balance activities. Noted increased ipsilateral trunk sidebend R LE single leg stance compared to left LE during balance training. Physical Therapy Plan Frequency and Duration Frequency of Treatment 2x/Week Plan of Care Start Date 09/22/23 Plan of Care End Date 11/22/23 Next Visit Focus/Plan Next Visit Plan Dynamic gait challenges, uneven surface ambulation, balance challenges
--- NOTE | 2023-10-02 12:48 | PT.OTN ---
Current Diagnoses Unsteadiness on feet (10/02/23) Other abnormalities of gait and mobility (10/02/23) Other symptoms and signs involving the musculoskeletal system (10/02/23) History of falling (10/02/23) Physical Therapy Treatment Note PT-OP-A Visit Information Start: 09/22/23 17:39 Freq: Status: Active Protocol: Document 10/02/23 11:17 AB (Rec: 10/02/23 12:47 AB [id number]) Out-Patient Physical Therapy Visit Information Visit Information Visit Type Treatment Note Visit Note Visit [email or web address] Access Code: [email or web address] Visit Start Time 11:18 Visit Stop Time 12:02 Visit Number 4 Number of SOFTWARE RELEASE MANAGER Visits 2 Evaluation Information Evaluation Date 09/22/23 PT-OP-B Current Condition Start: 09/22/23 17:39 Freq: Status: Active Protocol: Document 09/22/23 12:00 DCW (Rec: 09/22/23 17:52 DCW [id number]) Current Condition History of Current Condition Current Complaints LE weakness, instability, difficulty on uneven ground History of Current Condition Pt is an 83 year old male presenting to skilled therapy with complaints of worsening balance. Pt reports difficulty with higher-level activities, such as icy conditions, uneven surfaces, and walking in darkness. Pt reports he has also been struggling more on stairs recently, like my quads don't even work. Biggest complaint is that when he is out gardening, he is unable to squat down and reach outside of his base of support to pull weeds without losing balance. Pt denies any actual falls, but does admits that he has rolled onto the ground from a squatted position when weeding. Personal Factors Other Personal Factors That May Effect HTN, CABG (1980, 1996), Therapy/Recovery Bladder Ca, AAA repair, COPD, Pacemaker PT-OP-C Subjective Start: 09/22/23 17:39 Freq: Status: Active Protocol: Document 10/02/23 11:17 AB (Rec: 10/02/23 12:47 AB [id number]) OP-PT Subjective Patient Comments Patient Comments Pt reports performing the HEP, with little quad soreness, not enough to keep him from doing anything and not more than 24 hours. PT-OP-D Balance Start: 09/22/23 17:39 Freq: Status: Active Protocol: Document 09/22/23 12:00 DCW (Rec: 09/22/23 17:47 [facility] [id number]) Balance Tests Yang Balance Test Yang Balance Test Score 40/56 Yang Balance Assessment Evaluation Sitting to Standing Ability Independent w/Hands Unsupported Stance Safely- 2 minutes Sitting Unsupported, Feet on Floor Safely- 2 minutes Standing to Sitting Ability Safely, Minimal Hand Use Transfer Ability Safely, Minimal Hand Use Unsupported Stance- Eyes Closed Supervision, 10 seconds Unsupported Stance- Eyes Open Independent, <30 seconds Reaching Forward Standing Safely, 5 inches Pick- Up Object From Floor Independent/Safe Look Behind Shoulder - Standing Shifts Weight Unilateral Turning 360 Degrees Supervision/Verbal Cues Unsupported Stance, Alternating Feet on 4 Steps w/Supervision Stair Unsupported Tandem Stance Small Step- 30 seconds Unilateral Leg Stance Lifts Leg/Unable to Hold Total Score Yang Total Score (out of 56 points) 40 Yang Impairment Rating 20 to 39% Impaired (Score 34- 44) PT-OP-E Functional Tests Start: 09/22/23 17:39 Freq: Status: Active Protocol: Document 09/22/23 12:00 DCW (Rec: 09/22/23 17:47 [facility] [id number]) Functional Tests 30 Second Sit to Stand Test Score x9 repetitions Dynamic Gait Index (DGI) Score 19/24 DGI Impairment Rating 20 to <40% Impaired (Score 15- 19) Timed Up and Go (TUG) Score 12.36 Comments Three-trial average (12.68, 12 .51, 11.90) TUG Impairment Rating 20 to <40% Impaired (Score 12- 13) PT-OP-M Strength Start: 09/22/23 17:39 Freq: Status: Active Protocol: Document 09/22/23 12:00 DCW (Rec: 09/22/23 17:47 [facility] [id number]) Hip Strength Hip Manual Muscle Testing Right Flexion (L2) 3+ Fair+ Abduction 4 Good Adduction 4 Good External Rotation 5 Normal Internal Rotation 5 Normal Left Flexion (L2) 3+ Fair+ Abduction 4 Good Adduction 4 Good External Rotation 5 Normal Internal Rotation 5 Normal Knee Strength Knee Manual Muscle Testing Right Flexion (S2) 5 Normal Extension (L3) 5 Normal Left Flexion (S2) 5 Normal Extension (L3) 5 Normal Ankle/Foot Strength Ankle and Foot Manual Muscle Testing Right Dorsiflexion (L4) 4 Good Left Dorsiflexion (L4) 4+ Good+ PT-OP-Q Treatments Start: 09/22/23 17:39 Freq: Status: Active Protocol: Document 10/02/23 11:17 AB (Rec: 10/02/23 12:47 AB [id number]) Gym Equipment Shuttle Balance Red Details WBOS, Staggered Comments CGA to minimal assist with and without visual scanning. X10 very minimal squats Therapeutic Exercises Sitting Exercises seated hip abduction with band Resistance level 3 band light greeen Reps/Minutes one minute hold then 2X10 without hold Standing Exercises bilateral heel raise Reps/Minutes X15 sit to stand Standing Exercise Name 19 inch seat and 17 inch seat Side bilateral Resistance level 3 green band tied above the knees Reps/Minutes 3X10 Comments VC to keep tension on band Neuro Re-Education Treatment Balance Activities [place] Details with UE support Reps/Duration 10 feet left and right Comments one step verbal cues balloon volleyball Surface on and off blue cushion Reps/Duration 4 min Comments CGA cone slalom Details 10feet of cones Reps/Duration X3 Comments CGA Mat with obsticals under Surface uneven Reps/Duration 6 feet X 3 Comments CGA to minimal assist. step up taps Equipment 8 inch step Reps/Duration X15 Comments CGA hands above bars SLS Details SLS Equipment // bars Reps/Duration 2 minutes X 2 Comments with and without visual scanning and head turns, second set on foam pad without scanning or head turns Tandem Details tandem stepping Equipment //bars Reps/Duration 10 feet X 6 Comments verbal cues for hands above bars Hurdles Details hurdles Equipment // bars Reps/Duration 10 feet X 6 Comments CGA PT-OP-T Assessment and Plan Start: 09/22/23 17:39 Freq: Status: Active Protocol: Document 10/02/23 11:17 AB (Rec: 10/02/23 12:47 AB [id number]) Physical Therapy Assessment Goals Two Impairment Pt experiences LOB when out gardening [employer] Goal (LTG) Pt to improve Yang score by at least six points to 46/46 in order to demonstrate a decreased falls risk, allowing him to perform gardening activities without losing his balance LTG Duration 11/22/23 One Impairment Pt does not have an appropriate home exercise program Short Term Goal (STG) Pt to be independent and compliant with an appropriate HEP STG Duration 10/22/23 Assessment Summary Assessment Aamir reports quad muscle soreness end of session. SLS continues to be signficantly limited. Physical Therapy Plan Frequency and Duration Frequency of Treatment 2x/Week Plan of Care Start Date 09/22/23 Plan of Care End Date 11/22/23 Next Visit Focus/Plan Next Note Type Treatment Note Next Visit Plan Dynamic gait challenges, uneven surface ambulation, balance challenges
--- NOTE | 2023-10-14 16:45 | PT.OTN ---
Current Diagnoses Unsteadiness on feet (10/14/23) Other abnormalities of gait and mobility (10/14/23) Other symptoms and signs involving the musculoskeletal system (10/14/23) History of falling (10/14/23) Physical Therapy Treatment Note PT-OP-A Visit Information Start: 09/22/23 17:39 Freq: Status: Active Protocol: Document 10/14/23 12:56 AB (Rec: 10/14/23 14:33 AB [id number]) Out-Patient Physical Therapy Visit Information Visit Information Visit Type Treatment Note Visit Note Visit [email or web address] Access Code: [email or web address] Visit Start Time 13:03 Visit Stop Time 13:45 Visit Number 5 Number of QUALITY CONTROL CHEMIST Visits 3 Evaluation Information Evaluation Date 09/22/23 PT-OP-B Current Condition Start: 09/22/23 17:39 Freq: Status: Active Protocol: Document 09/22/23 12:00 DCW (Rec: 09/22/23 17:52 DCW [id number]) Current Condition History of Current Condition Current Complaints LE weakness, instability, difficulty on uneven ground History of Current Condition Pt is an 83 year old male presenting to skilled therapy with complaints of worsening balance. Pt reports difficulty with higher-level activities, such as icy conditions, uneven surfaces, and walking in darkness. Pt reports he has also been struggling more on stairs recently, like my quads don't even work. Biggest complaint is that when he is out gardening, he is unable to squat down and reach outside of his base of support to pull weeds without losing balance. Pt denies any actual falls, but does admits that he has rolled onto the ground from a squatted position when weeding. Personal Factors Other Personal Factors That May Effect HTN, CABG (1980, 1996), Therapy/Recovery Bladder Ca, AAA repair, COPD, Pacemaker PT-OP-C Subjective Start: 09/22/23 17:39 Freq: Status: Active Protocol: Document 10/14/23 12:56 AB (Rec: 10/14/23 14:33 AB [id number]) OP-PT Subjective Patient Comments Patient Comments Patient reports he doesn't know if the exercises are working, but has been doing the exercises. SLS without UE use 2 seconds left and right LE PT-OP-D Balance Start: 09/22/23 17:39 Freq: Status: Active Protocol: Document 09/22/23 12:00 DCW (Rec: 09/22/23 17:47 DCW [id number]) Balance Tests Yang Balance Test Yang Balance Test Score 40/56 Yang Balance Assessment Evaluation Sitting to Standing Ability Independent w/Hands Unsupported Stance Safely- 2 minutes Sitting Unsupported, Feet on Floor Safely- 2 minutes Standing to Sitting Ability Safely, Minimal Hand Use Transfer Ability Safely, Minimal Hand Use Unsupported Stance- Eyes Closed Supervision, 10 seconds Unsupported Stance- Eyes Open Independent, <30 seconds Reaching Forward Standing Safely, 5 inches Pick- Up Object From Floor Independent/Safe Look Behind Shoulder - Standing Shifts Weight Unilateral Turning 360 Degrees Supervision/Verbal Cues Unsupported Stance, Alternating Feet on 4 Steps w/Supervision Stair Unsupported Tandem Stance Small Step- 30 seconds Unilateral Leg Stance Lifts Leg/Unable to Hold Total Score Yang Total Score (out of 56 points) 40 Yang Impairment Rating 20 to 39% Impaired (Score 34- 44) PT-OP-E Functional Tests Start: 09/22/23 17:39 Freq: Status: Active Protocol: Document 09/22/23 12:00 DCW (Rec: 09/22/23 17:47 [facility] [id number]) Functional Tests 30 Second Sit to Stand Test Score x9 repetitions Dynamic Gait Index (DGI) Score 19/24 DGI Impairment Rating 20 to <40% Impaired (Score 15- 19) Timed Up and Go (TUG) Score 12.36 Comments Three-trial average (12.68, 12 .51, 11.90) TUG Impairment Rating 20 to <40% Impaired (Score 12- 13) PT-OP-M Strength Start: 09/22/23 17:39 Freq: Status: Active Protocol: Document 09/22/23 12:00 DCW (Rec: 09/22/23 17:47 DCW [id number]) Hip Strength Hip Manual Muscle Testing Right Flexion (L2) 3+ Fair+ Abduction 4 Good Adduction 4 Good External Rotation 5 Normal Internal Rotation 5 Normal Left Flexion (L2) 3+ Fair+ Abduction 4 Good Adduction 4 Good External Rotation 5 Normal Internal Rotation 5 Normal Knee Strength Knee Manual Muscle Testing Right Flexion (S2) 5 Normal Extension (L3) 5 Normal Left Flexion (S2) 5 Normal Extension (L3) 5 Normal Ankle/Foot Strength Ankle and Foot Manual Muscle Testing Right Dorsiflexion (L4) 4 Good Left Dorsiflexion (L4) 4+ Good+ PT-OP-Q Treatments Start: 09/22/23 17:39 Freq: Status: Active Protocol: Document 10/14/23 12:56 AB (Rec: 10/14/23 14:33 AB [id number]) Gym Equipment Shuttle Balance Red Details WBOS, Staggered Comments CGA to minimal assist with and without visual scanning. Therapeutic Exercises Sitting Exercises seated hip abduction with band Resistance level 4 blue band Reps/Minutes one minute hold then 2X10 without hold Standing Exercises bilateral heel raise Reps/Minutes X10 X 3 sit to stand Side bilateral Resistance level 4 blue band Reps/Minutes 3X10 Comments VC to keep tension on band Neuro Re-Education Treatment Balance Activities obsitcle course Details obstical course:mat with objects under, therapads, hurdles Reps/Duration X2 Comments CGA to minimal assist wall fall Reps/Duration X12 Comments verbal and visual cues monitored for pain step up taps Equipment 8 inch step Reps/Duration X15 Comments CGA hands above bars SLS Details SLS Equipment // bars Reps/Duration 2 minutes Comments with and without visual scanning and head turns, second set on foam pad without scanning or head turns Tandem Details tandem stepping Equipment //bars Reps/Duration 10 feet X 6 Comments verbal cues for hands above bars Hurdles Details hurdles Equipment // bars Reps/Duration 10 feet X four hurdles X6 repetitions Comments CGA PT-OP-T Assessment and Plan Start: 09/22/23 17:39 Freq: Status: Active Protocol: Document 10/14/23 12:56 AB (Rec: 10/14/23 14:33 AB [id number]) Physical Therapy Assessment Goals Two Impairment Pt experiences LOB when out gardening [employer] Goal (LTG) Pt to improve Yang score by at least six points to 46/46 in order to demonstrate a decreased falls risk, allowing him to perform gardening activities without losing his balance LTG Duration 11/22/23 One Impairment Pt does not have an appropriate home exercise program Short Term Goal (STG) Pt to be independent and compliant with an appropriate HEP STG Duration 10/22/23 Assessment Summary Assessment No improvement in single leg stance end of session right and left LE, possibly due to fatigue. Physical Therapy Plan Frequency and Duration Frequency of Treatment 2x/Week Plan of Care Start Date 09/22/23 Plan of Care End Date 11/22/23 Next Visit Focus/Plan Next Note Type Treatment Note Next Visit Plan Dynamic gait challenges, uneven surface ambulation, balance challenges
--- NOTE | 2023-10-16 12:16 | PT.OTN ---
Current Diagnoses Unsteadiness on feet (10/16/23) Other abnormalities of gait and mobility (10/16/23) Other symptoms and signs involving the musculoskeletal system (10/16/23) History of falling (10/16/23) Physical Therapy Treatment Note PT-OP-A Visit Information Start: 09/22/23 17:39 Freq: Status: Active Protocol: Document 10/16/23 10:07 AB (Rec: 10/16/23 12:16 AB [id number]) Out-Patient Physical Therapy Visit Information Visit Information Visit Type Treatment Note Visit Note Visit [email or web address] [email or web address] Access Code: [email or web address] Visit Start Time 11:17 Visit Stop Time 12:08 Visit Number 6 Number of RN STARS Visits 4 Evaluation Information Evaluation Date 09/22/23 PT-OP-B Current Condition Start: 09/22/23 17:39 Freq: Status: Active Protocol: Document 09/22/23 12:00 DCW (Rec: 09/22/23 17:52 DCW [id number]) Current Condition History of Current Condition Current Complaints LE weakness, instability, difficulty on uneven ground History of Current Condition Pt is an 83 year old male presenting to skilled therapy with complaints of worsening balance. Pt reports difficulty with higher-level activities, such as icy conditions, uneven surfaces, and walking in darkness. Pt reports he has also been struggling more on stairs recently, like my quads don't even work. Biggest complaint is that when he is out gardening, he is unable to squat down and reach outside of his base of support to pull weeds without losing balance. Pt denies any actual falls, but does admits that he has rolled onto the ground from a squatted position when weeding. Personal Factors Other Personal Factors That May Effect HTN, CABG (1980, 1996), Therapy/Recovery Bladder Ca, AAA repair, COPD, Pacemaker PT-OP-C Subjective Start: 09/22/23 17:39 Freq: Status: Active Protocol: Document 10/16/23 10:07 AB (Rec: 10/16/23 12:16 AB [id number]) OP-PT Subjective Patient Comments Patient Comments Patient reports he didn't do the exercises yesterday as he did the exercises here the day before. SLS 2-3 seconds without UE use multiple trials left and right LE PT-OP-D Balance Start: 09/22/23 17:39 Freq: Status: Active Protocol: Document 09/22/23 12:00 DCW (Rec: 09/22/23 17:47 DCW [id number]) Balance Tests Yang Balance Test Yang Balance Test Score 40/56 Yang Balance Assessment Evaluation Sitting to Standing Ability Independent w/Hands Unsupported Stance Safely- 2 minutes Sitting Unsupported, Feet on Floor Safely- 2 minutes Standing to Sitting Ability Safely, Minimal Hand Use Transfer Ability Safely, Minimal Hand Use Unsupported Stance- Eyes Closed Supervision, 10 seconds Unsupported Stance- Eyes Open Independent, <30 seconds Reaching Forward Standing Safely, 5 inches Pick- Up Object From Floor Independent/Safe Look Behind Shoulder - Standing Shifts Weight Unilateral Turning 360 Degrees Supervision/Verbal Cues Unsupported Stance, Alternating Feet on 4 Steps w/Supervision Stair Unsupported Tandem Stance Small Step- 30 seconds Unilateral Leg Stance Lifts Leg/Unable to Hold Total Score Yang Total Score (out of 56 points) 40 Yang Impairment Rating 20 to 39% Impaired (Score 34- 44) PT-OP-E Functional Tests Start: 09/22/23 17:39 Freq: Status: Active Protocol: Document 09/22/23 12:00 DCW (Rec: 09/22/23 17:47 DCW [id number]) Functional Tests 30 Second Sit to Stand Test Score x9 repetitions Dynamic Gait Index (DGI) Score 19/24 DGI Impairment Rating 20 to <40% Impaired (Score 15- 19) Timed Up and Go (TUG) Score 12.36 Comments Three-trial average (12.68, 12 .51, 11.90) TUG Impairment Rating 20 to <40% Impaired (Score 12- 13) PT-OP-M Strength Start: 09/22/23 17:39 Freq: Status: Active Protocol: Document 09/22/23 12:00 DCW (Rec: 09/22/23 17:47 DCW [id number]) Hip Strength Hip Manual Muscle Testing Right Flexion (L2) 3+ Fair+ Abduction 4 Good Adduction 4 Good External Rotation 5 Normal Internal Rotation 5 Normal Left Flexion (L2) 3+ Fair+ Abduction 4 Good Adduction 4 Good External Rotation 5 Normal Internal Rotation 5 Normal Knee Strength Knee Manual Muscle Testing Right Flexion (S2) 5 Normal Extension (L3) 5 Normal Left Flexion (S2) 5 Normal Extension (L3) 5 Normal Ankle/Foot Strength Ankle and Foot Manual Muscle Testing Right Dorsiflexion (L4) 4 Good Left Dorsiflexion (L4) 4+ Good+ PT-OP-Q Treatments Start: 09/22/23 17:39 Freq: Status: Active Protocol: Document 10/16/23 10:07 AB (Rec: 10/16/23 12:16 AB [id number]) Gym Equipment Shuttle Balance Red Details feet on fours, Staggered Comments CGA to minimal assist with and without visual scanning and head turns for feet on fours, mini scanning and staggered without scanning or head turns . Therapeutic Exercises Sitting Exercises seated hip abduction with band Resistance level 4 blue band Reps/Minutes one minute hold then 3X10 without hold Standing Exercises bilateral heel raise Side bilateral Reps/Minutes 2X10 Comments Pt ed rationale of lowering to floor slowly/carryover/ control fwd momentum sit to stand Side bilateral Resistance level 4 blue band Reps/Minutes 3X10 Comments VC to keep tension on band Neuro Re-Education Treatment Balance Activities wall fall Reps/Duration X12 Comments verbal and visual cues monitored for pain balloon volleyball Surface on floor and on therapads stagger position Reps/Duration 4 min Comments CGA step up taps Details second set with eyes on wall Equipment 8 inch step Reps/Duration X15 X 2 Comments CGA hands above bars SLS Details SLS CGA hands above bars Equipment // bars Reps/Duration one min Tandem Details tandem stepping Equipment //bars Reps/Duration 10 feet X 6 Comments verbal cues for hands above bars Hurdles Details hurdles Equipment // bars Reps/Duration 10 feet X four hurdles X6 repetitions Comments CGA PT-OP-T Assessment and Plan Start: 09/22/23 17:39 Freq: Status: Active Protocol: Document 10/16/23 10:07 AB (Rec: 10/16/23 12:16 AB [id number]) Physical Therapy Assessment Goals Two Impairment Pt experiences LOB when out gardening [employer] Goal (LTG) Pt to improve Yang score by at least six points to 46/46 in order to demonstrate a decreased falls risk, allowing him to perform gardening activities without losing his balance LTG Duration 11/22/23 One Impairment Pt does not have an appropriate home exercise program Short Term Goal (STG) Pt to be independent and compliant with an appropriate HEP STG Duration 10/22/23 Assessment Summary Assessment Review of HEP this session, with patient ed importance of performing HEP for carryover to improved function, and impact of strength in ankle in hip muscles for balance reactions. Physical Therapy Plan Frequency and Duration Frequency of Treatment 2x/Week Plan of Care Start Date 09/22/23 Plan of Care End Date 11/22/23 Next Visit Focus/Plan Next Note Type Treatment Note Next Visit Plan Dynamic gait challenges, uneven surface ambulation, balance challenges
--- NOTE | 2023-10-21 12:43 | PT.OTN ---
Current Diagnoses Unsteadiness on feet (10/21/23) Other abnormalities of gait and mobility (10/21/23) Other symptoms and signs involving the musculoskeletal system (10/21/23) History of falling (10/21/23) Physical Therapy Treatment Note PT-OP-A Visit Information Start: 09/22/23 17:39 Freq: Status: Active Protocol: Document 10/21/23 12:00 DCW (Rec: 10/21/23 12:43 DCW [id number]) Out-Patient Physical Therapy Visit Information Visit Information Visit Type Treatment Note Visit Start Time 12:00 Visit Stop Time 12:45 Visit Number 7 Number of RESOURCE TEACHER Visits 0 Evaluation Information Evaluation Date 09/22/23 PT-OP-B Current Condition Start: 09/22/23 17:39 Freq: Status: Active Protocol: Document 09/22/23 12:00 DCW (Rec: 09/22/23 17:52 DCW [id number]) Current Condition History of Current Condition Current Complaints LE weakness, instability, difficulty on uneven ground History of Current Condition Pt is an 83 year old male presenting to skilled therapy with complaints of worsening balance. Pt reports difficulty with higher-level activities, such as icy conditions, uneven surfaces, and walking in darkness. Pt reports he has also been struggling more on stairs recently, like my quads don't even work. Biggest complaint is that when he is out gardening, he is unable to squat down and reach outside of his base of support to pull weeds without losing balance. Pt denies any actual falls, but does admits that he has rolled onto the ground from a squatted position when weeding. Personal Factors Other Personal Factors That May Effect HTN, CABG (1980, 1996), Therapy/Recovery Bladder Ca, AAA repair, COPD, Pacemaker PT-OP-C Subjective Start: 09/22/23 17:39 Freq: Status: Active Protocol: Document 10/21/23 12:00 DCW (Rec: 10/21/23 12:43 DCW [id number]) OP-PT Subjective Patient Comments Patient Comments I think things are going pretty well overall. PT-OP-D Balance Start: 09/22/23 17:39 Freq: Status: Active Protocol: Document 09/22/23 12:00 DCW (Rec: 09/22/23 17:47 DCW [id number]) Balance Tests Yang Balance Test Yang Balance Test Score 40/56 Yang Balance Assessment Evaluation Sitting to Standing Ability Independent w/Hands Unsupported Stance Safely- 2 minutes Sitting Unsupported, Feet on Floor Safely- 2 minutes Standing to Sitting Ability Safely, Minimal Hand Use Transfer Ability Safely, Minimal Hand Use Unsupported Stance- Eyes Closed Supervision, 10 seconds Unsupported Stance- Eyes Open Independent, <30 seconds Reaching Forward Standing Safely, 5 inches Pick- Up Object From Floor Independent/Safe Look Behind Shoulder - Standing Shifts Weight Unilateral Turning 360 Degrees Supervision/Verbal Cues Unsupported Stance, Alternating Feet on 4 Steps w/Supervision Stair Unsupported Tandem Stance Small Step- 30 seconds Unilateral Leg Stance Lifts Leg/Unable to Hold Total Score Yang Total Score (out of 56 points) 40 Yang Impairment Rating 20 to 39% Impaired (Score 34- 44) PT-OP-E Functional Tests Start: 09/22/23 17:39 Freq: Status: Active Protocol: Document 09/22/23 12:00 DCW (Rec: 09/22/23 17:47 DCW [id number]) Functional Tests 30 Second Sit to Stand Test Score x9 repetitions Dynamic Gait Index (DGI) Score 19 DGI Impairment Rating 20 to <40% Impaired (Score 15- 19) Timed Up and Go (TUG) Score 12.36 Comments Three-trial average (12.68, 12 .51, 11.90) TUG Impairment Rating 20 to <40% Impaired (Score 12- 13) PT-OP-M Strength Start: 09/22/23 17:39 Freq: Status: Active Protocol: Document 09/22/23 12:00 DCW (Rec: 09/22/23 17:47 DCW [id number]) Hip Strength Hip Manual Muscle Testing Right Flexion (L2) 3+ Fair+ Abduction 4 Good Adduction 4 Good External Rotation 5 Normal Internal Rotation 5 Normal Left Flexion (L2) 3+ Fair+ Abduction 4 Good Adduction 4 Good External Rotation 5 Normal Internal Rotation 5 Normal Knee Strength Knee Manual Muscle Testing Right Flexion (S2) 5 Normal Extension (L3) 5 Normal Left Flexion (S2) 5 Normal Extension (L3) 5 Normal Ankle/Foot Strength Ankle and Foot Manual Muscle Testing Right Dorsiflexion (L4) 4 Good Left Dorsiflexion (L4) 4+ Good+ PT-OP-Q Treatments Start: 09/22/23 17:39 Freq: Status: Active Protocol: Document 10/21/23 12:00 DCW (Rec: 10/21/23 12:43 [facility] [id number]) Gym Equipment Shuttle Balance Red Details WBOS (EO/EC), Staggered Comments CGA/Min Ax1 Sport Cord Blue Exercise Details 4-way resisted ambulation Cord/Resistance Blue/White Neuro Re-Education Treatment Balance Activities SLS Details SLS Equipment // bars Tandem Details tandem stepping Equipment //bars Reps/Duration 10' x3 fwd, x3 bkwd Comments verbal cues for hands above bars Dynamic Gait Details Hallway Ambulation Comments Horizontal, Vertical head turns(80 bpm) Retro Ambulation Uneven surface Details NBOS Surface Stacked AirEx PT-OP-T Assessment and Plan Start: 09/22/23 17:39 Freq: Status: Active Protocol: Document 10/21/23 12:00 DCW (Rec: 10/21/23 12:43 [facility] [id number]) Physical Therapy Assessment Impairments Impairments Activity Tolerance,Balance, Functional Activities, Functional Mobility,Gait,ROM, Strength,Tone Goals Two Impairment Pt experiences LOB when out gardening [facility] Goal (LTG) Pt to improve Yang score by at least six points to 46/46 in order to demonstrate a decreased falls risk, allowing him to perform gardening activities without losing his balance LTG Duration 11/22/23 One Impairment Pt does not have an appropriate home exercise program Short Term Goal (STG) Pt to be independent and compliant with an appropriate HEP STG Duration 10/22/23 Assessment Summary Assessment Good response to Sport Cord, did well with dynamic gait challenges. Does struggle more with SLS and retro ambulation . Physical Therapy Plan Frequency and Duration Frequency of Treatment 2x/Week Plan of Care Start Date 09/22/23 Plan of Care End Date 11/22/23 Next Visit Focus/Plan Next Note Type Treatment Note Next Visit Plan Dynamic gait challenges, uneven surface ambulation, balance challenges
--- NOTE | 2023-10-28 12:44 | PT.OTN ---
Current Diagnoses Unsteadiness on feet (10/28/23) Other abnormalities of gait and mobility (10/28/23) Other symptoms and signs involving the musculoskeletal system (10/28/23) History of falling (10/28/23) Physical Therapy Treatment Note PT-OP-A Visit Information Start: 09/22/23 17:39 Freq: Status: Active Protocol: Document 10/28/23 12:00 DCW (Rec: 10/28/23 12:44 DCW [id number]) Out-Patient Physical Therapy Visit Information Visit Information Visit Type Treatment Note Visit Start Time 12:00 Visit Stop Time 12:45 Visit Number 8 Number of JUKEBOX CHECKER Visits 0 Evaluation Information Evaluation Date 09/22/23 PT-OP-B Current Condition Start: 09/22/23 17:39 Freq: Status: Active Protocol: Document 09/22/23 12:00 DCW (Rec: 09/22/23 17:52 DCW [id number]) Current Condition History of Current Condition Current Complaints LE weakness, instability, difficulty on uneven ground History of Current Condition Pt is an 83 year old male presenting to skilled therapy with complaints of worsening balance. Pt reports difficulty with higher-level activities, such as icy conditions, uneven surfaces, and walking in darkness. Pt reports he has also been struggling more on stairs recently, like my quads don't even work. Biggest complaint is that when he is out gardening, he is unable to squat down and reach outside of his base of support to pull weeds without losing balance. Pt denies any actual falls, but does admits that he has rolled onto the ground from a squatted position when weeding. Personal Factors Other Personal Factors That May Effect HTN, CABG (1980, 1996), Therapy/Recovery Bladder Ca, AAA repair, COPD, Pacemaker PT-OP-C Subjective Start: 09/22/23 17:39 Freq: Status: Active Protocol: Document 10/28/23 12:00 DCW (Rec: 10/28/23 12:44 DCW [id number]) OP-PT Subjective Patient Comments Patient Comments Pt feeling good today, no new complaints. PT-OP-D Balance Start: 09/22/23 17:39 Freq: Status: Active Protocol: Document 09/22/23 12:00 DCW (Rec: 09/22/23 17:47 DCW [id number]) Balance Tests Yang Balance Test Yang Balance Test Score 40/56 Yang Balance Assessment Evaluation Sitting to Standing Ability Independent w/Hands Unsupported Stance Safely- 2 minutes Sitting Unsupported, Feet on Floor Safely- 2 minutes Standing to Sitting Ability Safely, Minimal Hand Use Transfer Ability Safely, Minimal Hand Use Unsupported Stance- Eyes Closed Supervision, 10 seconds Unsupported Stance- Eyes Open Independent, <30 seconds Reaching Forward Standing Safely, 5 inches Pick- Up Object From Floor Independent/Safe Look Behind Shoulder - Standing Shifts Weight Unilateral Turning 360 Degrees Supervision/Verbal Cues Unsupported Stance, Alternating Feet on 4 Steps w/Supervision Stair Unsupported Tandem Stance Small Step- 30 seconds Unilateral Leg Stance Lifts Leg/Unable to Hold Total Score Yang Total Score (out of 56 points) 40 Yang Impairment Rating 20 to 39% Impaired (Score 34- 44) PT-OP-E Functional Tests Start: 09/22/23 17:39 Freq: Status: Active Protocol: Document 09/22/23 12:00 DCW (Rec: 09/22/23 17:47 [facility] [id number]) Functional Tests 30 Second Sit to Stand Test Score x9 repetitions Dynamic Gait Index (DGI) Score 19 DGI Impairment Rating 20 to <40% Impaired (Score 15- 19) Timed Up and Go (TUG) Score 12.36 Comments Three-trial average (12.68, 12 .51, 11.90) TUG Impairment Rating 20 to <40% Impaired (Score 12- 13) PT-OP-M Strength Start: 09/22/23 17:39 Freq: Status: Active Protocol: Document 09/22/23 12:00 DCW (Rec: 09/22/23 17:47 [facility] [id number]) Hip Strength Hip Manual Muscle Testing Right Flexion (L2) 3+ Fair+ Abduction 4 Good Adduction 4 Good External Rotation 5 Normal Internal Rotation 5 Normal Left Flexion (L2) 3+ Fair+ Abduction 4 Good Adduction 4 Good External Rotation 5 Normal Internal Rotation 5 Normal Knee Strength Knee Manual Muscle Testing Right Flexion (S2) 5 Normal Extension (L3) 5 Normal Left Flexion (S2) 5 Normal Extension (L3) 5 Normal Ankle/Foot Strength Ankle and Foot Manual Muscle Testing Right Dorsiflexion (L4) 4 Good Left Dorsiflexion (L4) 4+ Good+ PT-OP-Q Treatments Start: 09/22/23 17:39 Freq: Status: Active Protocol: Document 10/28/23 12:00 DCW (Rec: 10/28/23 12:44 [facility] [id number]) Gym Equipment Shuttle Balance Red Details WBOS (EO/EC), Staggered Comments CGA/Min Ax1 Therapeutic Exercises Other Exercises Resisted Ambulation Other Exercise Name Resisted side-stepping Resistance Green Neuro Re-Education Treatment Balance Activities Mat with obsticals under Details Obstacle course Comments Foam stepping stones SLS Details SLS Equipment // bars Tandem Details tandem stepping Equipment //bars Reps/Duration 10' x3 fwd, x3 bkwd Comments verbal cues for hands above bars Dynamic Gait Details Hallway Ambulation Comments Horizontal, Vertical head turns(80 bpm) Retro Ambulation Uneven surface Details NBOS Surface AirEx Hurdles Details hurdles Equipment // bars Reps/Duration 10 feet X four hurdles X6 repetitions Comments CGA PT-OP-T Assessment and Plan Start: 09/22/23 17:39 Freq: Status: Active Protocol: Document 10/28/23 12:00 DC (Rec: 10/28/23 12:44 [facility] [id number]) Physical Therapy Assessment Impairments Impairments Activity Tolerance,Balance, Functional Activities, Functional Mobility,Gait,ROM, Strength,Tone Goals Two Impairment Pt experiences LOB when out gardening Ladle Car Operator Goal (LTG) Pt to improve Yang score by at least six points to 46/46 in order to demonstrate a decreased falls risk, allowing him to perform gardening activities without losing his balance LTG Duration 11/22/23 One Impairment Pt does not have an appropriate home exercise program Short Term Goal (STG) Pt to be independent and compliant with an appropriate HEP STG Duration 10/22/23 Assessment Summary Assessment Pt showing improvement with tolerance to dynamic challenges, improving head turns and foam stance. Physical Therapy Plan Frequency and Duration Frequency of Treatment 2x/Week Plan of Care Start Date 09/22/23 Plan of Care End Date 11/22/23 Therapeutic Interventions Therapeutic Interventions Balance Training,Coordination Training,Gait Training,Home Exercise Program,Manual Therapy,Neuromuscular Re- education,Patient/Caregiver Education,Self-Care/Home Management,Soft Tissue Mobilization,Therapeutic Activities,Therapeutic Exercises Next Visit Focus/Plan Next Note Type Treatment Note Next Visit Plan Dynamic gait challenges, uneven surface ambulation, balance challenges
--- NOTE | 2023-10-30 16:40 | PT.OTN ---
Current Diagnoses Unsteadiness on feet (10/30/23) Other abnormalities of gait and mobility (10/30/23) Other symptoms and signs involving the musculoskeletal system (10/30/23) History of falling (10/30/23) Physical Therapy Treatment Note PT-OP-A Visit Information Start: 09/22/23 17:39 Freq: Status: Active Protocol: Document 10/30/23 12:49 AB (Rec: 10/30/23 14:33 AB [id number]) Out-Patient Physical Therapy Visit Information Visit Information Visit Type Treatment Note Visit Note Visit [email or web address] Access Code: [email or web address] Visit Start Time 13:48 Visit Stop Time 14:31 Visit Number 9 Number of WATCH ASSEMBLY INSTRUCTOR Visits 1 Evaluation Information Evaluation Date 09/22/23 PT-OP-B Current Condition Start: 09/22/23 17:39 Freq: Status: Active Protocol: Document 09/22/23 12:00 DCW (Rec: 09/22/23 17:52 DCW [id number]) Current Condition History of Current Condition Current Complaints LE weakness, instability, difficulty on uneven ground History of Current Condition Pt is an 83 year old male presenting to skilled therapy with complaints of worsening balance. Pt reports difficulty with higher-level activities, such as icy conditions, uneven surfaces, and walking in darkness. Pt reports he has also been struggling more on stairs recently, like my quads don't even work. Biggest complaint is that when he is out gardening, he is unable to squat down and reach outside of his base of support to pull weeds without losing balance. Pt denies any actual falls, but does admits that he has rolled onto the ground from a squatted position when weeding. Personal Factors Other Personal Factors That May Effect HTN, CABG (1980, 1996), Therapy/Recovery Bladder Ca, AAA repair, COPD, Pacemaker PT-OP-C Subjective Start: 09/22/23 17:39 Freq: Status: Active Protocol: Document 10/30/23 12:49 AB (Rec: 10/30/23 14:33 AB [id number]) OP-PT Subjective Patient Comments Patient Comments Patient reports having no falls or near falls, patient reports he did take a step to the side and then kept going 2 days ago he thinks, commenting he was able to catch himself. PT-OP-D Balance Start: 09/22/23 17:39 Freq: Status: Active Protocol: Document 09/22/23 12:00 DCW (Rec: 09/22/23 17:47 DCW [id number]) Balance Tests Yang Balance Test Yang Balance Test Score 40/56 Yang Balance Assessment Evaluation Sitting to Standing Ability Independent w/Hands Unsupported Stance Safely- 2 minutes Sitting Unsupported, Feet on Floor Safely- 2 minutes Standing to Sitting Ability Safely, Minimal Hand Use Transfer Ability Safely, Minimal Hand Use Unsupported Stance- Eyes Closed Supervision, 10 seconds Unsupported Stance- Eyes Open Independent, <30 seconds Reaching Forward Standing Safely, 5 inches Pick- Up Object From Floor Independent/Safe Look Behind Shoulder - Standing Shifts Weight Unilateral Turning 360 Degrees Supervision/Verbal Cues Unsupported Stance, Alternating Feet on 4 Steps w/Supervision Stair Unsupported Tandem Stance Small Step- 30 seconds Unilateral Leg Stance Lifts Leg/Unable to Hold Total Score Yang Total Score (out of 56 points) 40 Yang Impairment Rating 20 to 39% Impaired (Score 34- 44) PT-OP-E Functional Tests Start: 09/22/23 17:39 Freq: Status: Active Protocol: Document 09/22/23 12:00 DCW (Rec: 09/22/23 17:47 DCW [id number]) Functional Tests 30 Second Sit to Stand Test Score x9 repetitions Dynamic Gait Index (DGI) Score 19/24 DGI Impairment Rating 20 to <40% Impaired (Score 15- 19) Timed Up and Go (TUG) Score 12.36 Comments Three-trial average (12.68, 12 .51, 11.90) TUG Impairment Rating 20 to <40% Impaired (Score 12- 13) PT-OP-M Strength Start: 09/22/23 17:39 Freq: Status: Active Protocol: Document 09/22/23 12:00 DCW (Rec: 09/22/23 17:47 DCW [id number]) Hip Strength Hip Manual Muscle Testing Right Flexion (L2) 3+ Fair+ Abduction 4 Good Adduction 4 Good External Rotation 5 Normal Internal Rotation 5 Normal Left Flexion (L2) 3+ Fair+ Abduction 4 Good Adduction 4 Good External Rotation 5 Normal Internal Rotation 5 Normal Knee Strength Knee Manual Muscle Testing Right Flexion (S2) 5 Normal Extension (L3) 5 Normal Left Flexion (S2) 5 Normal Extension (L3) 5 Normal Ankle/Foot Strength Ankle and Foot Manual Muscle Testing Right Dorsiflexion (L4) 4 Good Left Dorsiflexion (L4) 4+ Good+ PT-OP-Q Treatments Start: 09/22/23 17:39 Freq: Status: Active Protocol: Document 10/30/23 12:49 AB (Rec: 10/30/23 14:33 AB [id number]) Gym Equipment Shuttle Balance Red Details WBOS, stagger, mini squat Comments visual scanning and head turns for stagger stance Therapeutic Exercises Sitting Exercises seated hip abduction with band Resistance level 4 blue band and level 5 teal band Reps/Minutes one min hold X 1 with blue X 1 with teal band, 2X 15 with teal band Standing Exercises bilateral heel raise Side bilateral Reps/Minutes 2X15 Comments VC to lower heels slowly sit to stand Side bilateral Resistance level 5 teal band Reps/Minutes X16 Comments VC to keep tension on band Neuro Re-Education Treatment Balance Activities Badminton Details CGA with and without stepping Reps/Duration 5 minutes Comments ball tossed to patient, patient with badminton racquet step up Details CGA, hands above bars Equipment 4 inch step with foam pad wall fall Reps/Duration X15 Comments verbal and visual cues monitored for pain balloon volleyball Surface on foam Reps/Duration 2 min Comments CGA step up taps Details second set with eyes on wall Equipment 8 inch step Reps/Duration X15 Comments CGA hands above bars Tandem Details tandem stepping Equipment //bars Reps/Duration 6 X 10 feet Comments hands above bars, visual scanning, head turns and counting back by 3's from 100 PT-OP-T Assessment and Plan Start: 09/22/23 17:39 Freq: Status: Active Protocol: Document 10/30/23 12:49 AB (Rec: 10/30/23 14:33 AB [id number]) Physical Therapy Assessment Goals Two Impairment Pt experiences LOB when out gardening Head Of Insight Goal (LTG) Pt to improve Yang score by at least six points to 46/46 in order to demonstrate a decreased falls risk, allowing him to perform gardening activities without losing his balance LTG Duration 11/22/23 One Impairment Pt does not have an appropriate home exercise program Short Term Goal (STG) Pt to be independent and compliant with an appropriate HEP STG Duration 10/22/23 Assessment Summary Assessment Patient reports feeling fatigued end of session. Aamir was able to progress to level 5 band for sit to stand with band and seated hip abduction with band. Physical Therapy Plan Frequency and Duration Frequency of Treatment 2x/Week Plan of Care Start Date 09/22/23 Plan of Care End Date 11/22/23 Next Visit Focus/Plan Next Note Type Treatment Note Next Visit Plan Dynamic gait challenges, uneven surface ambulation, balance challenges
--- NOTE | 2023-12-23 12:08 | PT.OPDS ---
Current Diagnoses Unsteadiness on feet (10/30/23) Other abnormalities of gait and mobility (10/30/23) Other symptoms and signs involving the musculoskeletal system (10/30/23) History of falling (10/30/23) Visit Care Team Role Provider Type Karen Pollard DO Attending Provider Physician Family Provider Primary Care Provider Referring Provider Specialty: [facility] Practice Address: [address] [place] [address], [facility] Email: [email or web address] Visit Number Visit Number 9 Discharge Summary PT-OP-B Current Condition Start: 09/22/23 17:39 Freq: Status: Active Protocol: Document 09/22/23 12:00 DCW (Rec: 09/22/23 17:52 DCW [id number]) Current Condition History of Current Condition Current Complaints LE weakness, instability, difficulty on uneven ground History of Current Condition Pt is an 83 year old male presenting to skilled therapy with complaints of worsening balance. Pt reports difficulty with higher-level activities, such as icy conditions, uneven surfaces, and walking in darkness. Pt reports he has also been struggling more on stairs recently, like my quads don't even work. Biggest complaint is that when he is out gardening, he is unable to squat down and reach outside of his base of support to pull weeds without losing balance. Pt denies any actual falls, but does admits that he has rolled onto the ground from a squatted position when weeding. Personal Factors Other Personal Factors That May Effect HTN, CABG (1980, 1996), Therapy/Recovery Bladder Ca, AAA repair, COPD, Pacemaker PT-OP-C Subjective Start: 09/22/23 17:39 Freq: Status: Active Protocol: Document 10/30/23 12:49 AB (Rec: 10/30/23 14:33 AB [id number]) OP-PT Subjective Patient Comments Patient Comments Patient reports having no falls or near falls, patient reports he did take a step to the side and then kept going 2 days ago he thinks, commenting he was able to catch himself. PT-OP-D Balance Start: 09/22/23 17:39 Freq: Status: Active Protocol: Document 09/22/23 12:00 DCW (Rec: 09/22/23 17:47 [facility] [id number]) Balance Tests Yang Balance Test Yang Balance Test Score 40/56 Yang Balance Assessment Evaluation Sitting to Standing Ability Independent w/Hands Unsupported Stance Safely- 2 minutes Sitting Unsupported, Feet on Floor Safely- 2 minutes Standing to Sitting Ability Safely, Minimal Hand Use Transfer Ability Safely, Minimal Hand Use Unsupported Stance- Eyes Closed Supervision, 10 seconds Unsupported Stance- Eyes Open Independent, <30 seconds Reaching Forward Standing Safely, 5 inches Pick- Up Object From Floor Independent/Safe Look Behind Shoulder - Standing Shifts Weight Unilateral Turning 360 Degrees Supervision/Verbal Cues Unsupported Stance, Alternating Feet on 4 Steps w/Supervision Stair Unsupported Tandem Stance Small Step- 30 seconds Unilateral Leg Stance Lifts Leg/Unable to Hold Total Score Yang Total Score (out of 56 points) 40 Yang Impairment Rating 20 to 39% Impaired (Score 34- 44) PT-OP-E Functional Tests Start: 09/22/23 17:39 Freq: Status: Active Protocol: Document 09/22/23 12:00 DCW (Rec: 09/22/23 17:47 [facility] [id number]) Functional Tests 30 Second Sit to Stand Test Score x9 repetitions Dynamic Gait Index (DGI) Score 19/24 DGI Impairment Rating 20 to <40% Impaired (Score 15- 19) Timed Up and Go (TUG) Score 12.36 Comments Three-trial average (12.68, 12 .51, 11.90) TUG Impairment Rating 20 to <40% Impaired (Score 12- 13) PT-OP-M Strength Start: 09/22/23 17:39 Freq: Status: Active Protocol: Document 09/22/23 12:00 DCW (Rec: 09/22/23 17:47 [facility] [id number]) Hip Strength Hip Manual Muscle Testing Right Flexion (L2) 3+ Fair+ Abduction 4 Good Adduction 4 Good External Rotation 5 Normal Internal Rotation 5 Normal Left Flexion (L2) 3+ Fair+ Abduction 4 Good Adduction 4 Good External Rotation 5 Normal Internal Rotation 5 Normal Knee Strength Knee Manual Muscle Testing Right Flexion (S2) 5 Normal Extension (L3) 5 Normal Left Flexion (S2) 5 Normal Extension (L3) 5 Normal Ankle/Foot Strength Ankle and Foot Manual Muscle Testing Right Dorsiflexion (L4) 4 Good Left Dorsiflexion (L4) 4+ Good+ PT-OP-T Assessment and Plan Start: 09/22/23 17:39 Freq: Status: Active Protocol: Document 12/23/23 12:06 DCW (Rec: 12/23/23 12:08 DCW [id number]) Physical Therapy Assessment Assessment Summary Assessment Spoke with pt on the phone today, he states he is not improving as well as expected following urology surgery. Admits he likely won't be able to return for PT for another 2 months. Therapist and patient agreeable to discharge at this time, understands he will require a new referral in order to return. Physical Therapy Plan Discharge Physical Therapy Discharge Reasons Change in Medical Status Next Visit Focus/Plan Next Note Type Discharge Summary
== END 2023-12-23 13:52 | disposition home or self-care (01) ==
LOC: PHYS 13:45
PROVIDERS: Family Provider Family Medicine; PCP Family Medicine; Referring Provider Family Medicine; Visit Provider Family Medicine
DX: Z91.81 History of falling (principal); R29.898 Other symptoms and signs involving the musculoskeletal system; R26.89 Other abnormalities of gait and mobility; R26.81 Unsteadiness on feet
CPT/HCPCS: 97110; 97112; 97162

== ENCOUNTER 2023-11-03 07:46 | Day surgery (SDC) | payer MEDICARE, OTHER, SELFPAY ==
[2023-03-14 21:50] VITALS: BMI 35.1
[2023-11-03] VITALS (7 sets, daily range): BP systolic 93–134; BP diastolic 49–85; PULSE 60–70; RESP 13–20; TEMP 36.1–37; O2SAT 97–100; BMI 33.5
--- NOTE | 2023-11-03 | PATH_ITS ---
[facility] Accession Number: [id number] No. of containers..01 Tissue . 01 Material submitted: . bladder - RIGHT POSTERIOR BLADDER TUMOR . 01 Diagnosis: A. BLADDER, RIGHT POSTERIOR, TUMOR: Papillary urothelial carcinoma, low grade, non-invasive. Muscularis propria: Not identified. MRV 11/10/2023 1450 Local . 01 Electronically signed: . Ernestine Tolbert MD, Pathologist NPI- [id number] . 01 Gross description: . RIGHT POSTERIOR BLADDER TUMOR: Received in formalin is 1 fragment(s) of owen, soft tissue measuring 0.1 x 0.1 x 0.1 cm submitted entirely in 1 cassette(s) /SUMMER 11/04/2023 1911 Local . 01 Microscopic: . Deeper H/E levels examined. . 01 Pathologist provided ICD-10: C67.9 . 01 CPT . 550533 Specimen Comment: A courtesy copy of this report has been sent to [phone] Performed at: [address] [facility] [address], [place], [place] [id number] MD Obdulio Miles MD Phone: [phone]
--- NOTE | 2023-11-03 09:03 | PM.PREOP ---
Pre-operative Note COVID-19 COVID-19 status: Not tested Interval Note History & Physical reviewed/Exam performed by Physician: Yes Changes to H&P: No
[2023-11-03] MEDS: LACTATED RINGERS 1,000 ML 21 ML IV (09:12)
[2023-11-03] MEDS: CEFAZOLIN 2 GM/100 ML PREMIX 100 ML IV (09:38)
--- NOTE | 2023-11-03 09:39 | SUR.OPER ---
Lithotomy on padded OR bed, head on pillow, arms secured on padded arm boards at <90 degrees abduction. Legs secured in padded yellow fins stirrups.
[2023-11-03] MEDS: WATER FOR INJECTION,STERILE 20 ML, mitoMYcin 20 MG INTRAVESIC (10:02)
--- NOTE | 2023-11-03 10:20 | PM.OP.1 ---
Procedure & Clinicians Procedure: Transurethral resection of bladder tumor small with fulguration placement of Ferreira catheter and mitomycin instillation Same procedure as scheduled: Yes Indications: This 83-year-old male was found to have a recurrence of his bladder cancer it looked to be superficial and small it was just lateral to the ureteral orifice. He presents this time for resection and instillation of mitomycin. 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 Prostate is surgically absent and there is a large caliber bladder neck contracture. The left ureteral orifice is in normal position with clear efflux. Just lateral to the right ureteral orifice was a small papillary what appeared to be transitional cell which was resected. There were no other papillary lesions within the bladder there were multiple scars from previous resections. At the end of the procedure the tumor appeared to be gone hemostasis was good and there was clear efflux of urine from the right ureteral orifice. Closure Type: not applicable Specimen(s): other (Fragment of small papillary lesion) Applied: catheter ([address] Ferreira catheter 12 cc in the balloon) Estimated Blood Loss (mL): 3 Blood products transfused: none Procedure in detail: Procedure in detail: After informed consent was obtained, the patient was identified and brought to the operating room where he was placed in supine position on the table. Patient then had anesthesia induced and maintained. Ensuring an adequate level of anesthesia the patient was transitioned to the lithotomy position where he was prepped, draped and prepared for Transurethral procedure. After prepping, draping, ensuring an adequate level of anesthesia, time-out and administration of antibiotics the cystoscope was passed to the level of narrowing where he had had his artificial urinary sphincter. The scope would not easily pass through this is not wanting to damage it the scope was backed out and Viraj sounds were used to gently dilate the area to 24 Panamanian. The scope was then easily passed into the bladder where cystoscopy was performed with the 30 and 70 degree lens. Biopsy forceps was then inserted and the small papillary tumor was resected. Bugbee electrode was then inserted and using judicious cautery the base of the area was cauterized. Hemostasis was good at this point the bladder was left full the scope was removed and the 20 Panamanian catheter passed easily into the bladder with the balloon was filled with 12 cc of sterile water. Mitomycin was not instilled through the chemotherapeutic plug which was left in place. At this point with the procedure done the patient was awakened transferred to the postanesthesia care unit for the mitomycin dwell time. The patient tolerated the procedure well there were no complications. The catheter will be removed after the appropriate dwell time for the mitomycin. Complications: none Post-operative Condition: stable Disposition: PACU Plan for aftercare: After mitomycin dwell time catheter beam removed and patient will be discharged to home to follow up my office in approximately 10-14 days.
[2023-11-03] MEDS: PHENAZOPYRIDINE 100 MG TABLET 200 MG PO (10:45)
[2023-11-03] MEDS: OXYCODONE IR 5 MG TABLET PO (11:07)
[2023-11-03] MEDS: fentaNYL 100 MCG/2 ML INJ IV (11:25)
== END 2023-11-03 12:22 | disposition home or self-care (01) ==
PROVIDERS: Family Provider Family Medicine; PCP Family Medicine; Referring Provider Urology; Visit Provider Urology
PROC: 0TBB8ZZ Excision of Bladder, Via Natural or Artificial Opening Endoscopic (ICD-10-PCS; CPT 52234; principal; 2023-11-03 09:45)
DX: C67.9 Malignant neoplasm of bladder, unspecified (principal); N99.89 Other postprocedural complications and disorders of genitourinary system; N39.3 Stress incontinence (female) (male); Z86.03 Personal history of neoplasm of uncertain behavior; Z90.79 Acquired absence of other genital organ(s); R82.81 Pyuria
CPT/HCPCS: 52234; J0690; J1100; J2405; J2704; J3010; J9280

== ENCOUNTER → 2023-11-05 10:34 | Outpatient (CLI) | payer MEDICARE, OTHER, SELFPAY ==
[2023-03-14 21:50] VITALS: BMI 35.1
== END ==
PROVIDERS: Family Provider Family Medicine; PCP Family Medicine; Visit Provider Urology
DX: N30.00 Acute cystitis without hematuria (principal)
CPT/HCPCS: 87086; 87186

== ENCOUNTER → 2023-11-10 10:53 | Outpatient (CLI) | payer MEDICARE, OTHER, SELFPAY ==
[2023-03-14 21:50] VITALS: BMI 35.1
[2023-11-10 11:14] LABS: Appearance Urine UA SL CLOUDY; Bilirubin Urine UA NEGATIVE (NEGATIVE); Color Urine UA YELLOW; Glucose Urine UA 3+ g/dL (Negative); Ketones Urine UA NEGATIVE (NEGATIVE); Leukocyte Esterase Urine UA TRACE (NEGATIVE); Nitrite Urine UA NEGATIVE (Negative); Occult Blood Urine UA 3+ (Negative); Protein Urine UA 1+ (Negative); pH Urine UA 5.5 (4.5-8.0)
[2023-11-10 11:28] LABS: Bacteria Urine None Seen; RBC Urine 30-100/HPF (0-5/HPF); Urine Volume 10mL (spun); WBC Urine 1-5/HPF (0-5/HPF)
[2023-11-10 11:29] LABS: Culture Indicated Urine Cult Not Indicated; Squamous Epithelial Cell Urine 1-5 /HPF (0-5/HPF)
[2023-11-10 12:21] LABS: BUN Creatinine Ratio 21.2 (6-22); Blood Urea Nitrogen 18 mg/dL (9-20); Calcium 9.8 mg/dL (8.4-10.2); Carbon Dioxide 28 mmol/L (22-32); Chloride 102 mmol/L (98-107); Estimated Glomerular Filt Rate > 60 mL/min (>60); Glucose 126 mg/dL (80-110); HEMOLYSIS < 15 (0-50); Potassium 3.8 mmol/L (3.4-5.1); Sodium 136 mmol/L (137-145)
== END ==
PROVIDERS: Family Provider Family Medicine; PCP Family Medicine; Referring Provider Urology; Visit Provider Urology
DX: Z01.818 Encounter for other preprocedural examination (principal); N39.3 Stress incontinence (female) (male)
CPT/HCPCS: 36415; 80048; 81001

== ENCOUNTER → 2024-02-12 13:11 | Outpatient (CLI) | payer MEDICARE, OTHER, SELFPAY ==
[2024-01-05 13:22] VITALS: BMI 35.1
== END ==
PROVIDERS: Family Provider Family Medicine; PCP Family Medicine; Visit Provider Urology
DX: N30.00 Acute cystitis without hematuria (principal)
CPT/HCPCS: 87077; 87086; 87186

== ENCOUNTER → 2024-08-15 13:50 | Outpatient (CLI) | payer MEDICARE, OTHER, SELFPAY ==
[2024-01-05 13:22] VITALS: BMI 35.1
== END ==
PROVIDERS: Family Provider Family Medicine; PCP Family Medicine; Visit Provider Urology
DX: R39.9 Unspecified symptoms and signs involving the genitourinary system (principal)
CPT/HCPCS: 87077; 87086; 87186

== ENCOUNTER 2024-08-30 06:00 | Day surgery (SDC) | payer MEDICARE, OTHER, SELFPAY ==
[2024-01-05 13:22] VITALS: BMI 35.1
[2024-08-17 14:55] VITALS: BMI 33.4
[2024-08-30] VITALS (8 sets, daily range): BP systolic 124–151; BP diastolic 62–76; PULSE 60–71; RESP 10–19; TEMP 36.2–36.3; O2SAT 96–100; BMI 33.4
[2024-08-30 07:13] LABS: Hematocrit 40.4 % (41-53); Mean Corpuscular HGB Conc 34.6 % (30-36); Mean Corpuscular Hemoglobin 32.1 PG (26-34); Mean Corpuscular Volume 92.7 fL (80-100); Platelet Count 122 X10^3/uL (150-400); Red Blood Cell Count 4.36 X10^6/uL (4.5-5.9); Red Cell Distribution Width 14.6 % (11.6-14.8); White Blood Cell Count 6.2 X10^3/uL (4.5-11.0)
[2024-08-30] MEDS: ACETAMINOPHEN 325 MG TABLET 975 MG PO (07:14)
[2024-08-30] MEDS: LACTATED RINGERS 1,000 ML 42 ML IV (07:15)
--- NOTE | 2024-08-30 07:18 | EKG_ITS ---
[facility] [address] [place] [address] Test Date: 2024-08-30 Pat Name: Aamir Montelongo Department: Room: Gender: Male Chiropractic Teacher: : 1940 Requested By: Order Number: [id number] Reading MD: Chay Maldonado Measurements Intervals [place] Rate: 60 P: WI: QRS: 210 QRSD: 148 T: 76 QT: 444 QTc: 444 Interpretive Statements Ventricular-paced rhythm Biventricular pacemaker detected Electronically Signed On 08-31-2024 18:42:31 PDT by Chay Maldonado
[2024-08-30 07:26] LABS: BUN Creatinine Ratio 25.3 (6-22); Blood Urea Nitrogen 19 mg/dL (9-20); Calcium 10.5 mg/dL (8.4-10.2); Carbon Dioxide 28 mmol/L (22-32); Chloride 100 mmol/L (98-107); Estimated Glomerular Filt Rate > 60 mL/min (>60); Glucose 105 mg/dL (80-110); HEMOLYSIS < 15 (0-50); Potassium 3.9 mmol/L (3.4-5.1); Sodium 135 mmol/L (137-145)
[2024-08-30] MEDS: ALBUTEROL 2.5 MG/3 ML NEB (ADULT) INH (07:36)
--- NOTE | 2024-08-30 07:39 | SUR.PREOP ---
Albuterol in pre-op per Kassi HAYES
--- NOTE | 2024-08-30 07:44 | PM.PREOP ---
Pre-operative Note COVID-19 COVID-19 status: Not tested Interval Note History & Physical reviewed/Exam performed by Physician: Yes Changes to H&P: No
[2024-08-30] MEDS: CIPROFLOXACIN 400 MG/200 ML PIGGYBACK 200 MG IV (07:50)
[2024-08-30] MEDS: GENTAMICIN 400 MG in SODIUM CHLORIDE 0.9% 100 ML 110 MG IV (08:00)
--- NOTE | 2024-08-30 08:18 | SUR.OPER ---
Lithotomy on padded OR bed, head on pillow, arms secured on padded arm boards at <90 degrees abduction. Legs secured in padded yellow fins stirrups. Safety strap across abdomen.
--- NOTE | 2024-08-30 09:11 | PM.OP.1 ---
Procedure & Clinicians Procedure: Transurethral resection of bladder tumor. 2. Right ureteroscopy 3. Placement of right ureteral stent and Ferreira catheter placement. Same procedure as scheduled: Yes Indications: This 84-year-old male with a known history of bladder cancer came in for surveillance cystoscopy and was found to have recurrent tumor involving the right ureteral orifice. At that time could not tell the extent going up the ureter and does ureteroscopy will be performed today. Patient comes for resection of his tumor ureteroscopy and possible stent placement. Surgeon: Reggie Estevez Click Yes if Unassisted: Yes Anesthesia Type: General Operative Notes Findings: Findings: At cystoscopy urethral meatus is normal, the urethra shows multiple scars and irregularities from previous artificial urinary sphincter placement erosions removals and radiation therapy. They did easily accept the scopes. Patient is incontinent which is observed with bladder filling bladder neck is wide open sphincter as poorly coapted. 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 At ureteroscopy the tumor did not extend beyond the ureteral orifice up into the ureter at least to the level of the vessels which was the limit of ureteroscopy with the rigid scope. At the end of the procedure all tumor appeared to be resected and a 7 [place]ian by multi length stent was left in good position in the renal pelvis and in the bladder with the nylon harness or string removed. There were no other abnormalities noted. Closure Type: not applicable Specimen(s): none sent Prosthetic devices, grafts, tissues, transplants, or devices: 1. Seven [place]ian by multi length stent in the right collecting system with the string removed 2. 20 [place] Upton tip catheter through the urethra into the bladder with 10 cc of sterile water in the balloon to gravity drainage. Estimated Blood Loss (mL): 5 Blood products transfused: none Procedure in detail: Procedure in detail: After informed consent was obtained, the patient was identified brought to the operating room where he was placed in a supine position on the table. Once their attention was given to his pacemaker and anesthesia was induced and maintained. Ensuring an adequate level of anesthesia the patient was transitioned to the lithotomy position. Once there he was prepped, draped and prepared in his sterile fashion for Transurethral procedure. Ensuring an adequate level of anesthesia, after time-out, after administration of antibiotics and prepping and draping a 22 [place]ian cystoscope was passed through the urethra and into the bladder where cystoscopy was performed. At this point with the aid of fluoroscopy a guidewire was passed up an end of the collecting system and the scope backed out and this was reserved as a safety wire. The cystoscope was once again inserted and a 2nd wire passed up and into the collecting system. This was the working wire the cystoscope was backed out and the semi-rigid ureteral scope was passed over the wire and up and into the right ureter with findings as noted above. With these in hand the scope was backed out as well as the wire. The resectoscope was then inserted and with the aid of the button all tumor was resected and/or fulgurated. With this completed a 17 [place]ian cystoscope was passed through the urethra after removal of the resectoscope and passed just into the ureteral orifice in it appeared that all tumor had been resected. At this point the cystoscope was removed and the wire backloaded through a 22 [place]ian cystoscope which was then passed through the urethra and into the bladder. The stent was then passed over the wire and a coaxial fashion position in the renal pelvis under fluoroscopic visualization and in the bladder under direct vision. With the stent in good position the wire was removed the nylon harness was removed in the stent was left in good position. At this point an attempt was made to pass a 20 [place]ian catheter but because of the irregularities and previous changes in the urethra this would not go. Therefore the cystoscope was once again inserted guidewire coiled within the bladder through the scope the scope was backed out and a [place] tip catheter was easily passed over the wire and into the bladder where the balloon was filled with 10 cc of sterile water the wire was removed the catheter was placed to gravity drainage. At this point the patient was awakened having tolerated the procedure well to be transferred to the postanesthesia care unit for recovery. There were no complications the patient will be discharged with the stent and the Ferreira catheter to follow up in my office in approximately 10-14 days. Complications: none Post-operative Condition: stable Disposition: PACU Plan for aftercare: Once the patient is fully awake and alert he will be discharged home with a Ferreira catheter to follow up my office in 10-14 days.
[2024-08-30] MEDS: PHENAZOPYRIDINE 100 MG TABLET 200 MG PO (10:38)
== END 2024-08-30 10:45 | disposition home or self-care (01) ==
PROVIDERS: Nurse Anesthetist, Certified Registered; Family Provider Family Medicine; PCP Family Medicine; Referring Provider Urology; Visit Provider Urology
PROC: 0TBB8ZZ Excision of Bladder, Via Natural or Artificial Opening Endoscopic (ICD-10-PCS; CPT 52234; principal; 2024-08-30 07:45)
DX: C67.9 Malignant neoplasm of bladder, unspecified (principal); N39.3 Stress incontinence (female) (male); R39.9 Unspecified symptoms and signs involving the genitourinary system; Z79.01 Long term (current) use of anticoagulants; Z87.891 Personal history of nicotine dependence
CPT/HCPCS: 52234; 36415; 80048; 82962; 85027; 93005; C2617; J0744; J1100; J2405; J2704; J3010; J7613

== ENCOUNTER → 2024-09-14 11:50 | Outpatient (CLI) | payer MEDICARE, OTHER, SELFPAY ==
[2024-01-05 13:22] VITALS: BMI 35.1
== END ==
PROVIDERS: Family Provider Family Medicine; PCP Family Medicine; Visit Provider Urology
DX: R39.9 Unspecified symptoms and signs involving the genitourinary system (principal)
CPT/HCPCS: 87077; 87086

== ENCOUNTER → 2024-10-12 11:27 | Outpatient (CLI) | payer MEDICARE, OTHER, SELFPAY ==
[2024-01-05 13:22] VITALS: BMI 35.1
== END ==
PROVIDERS: Family Provider Family Medicine; PCP Family Medicine; Visit Provider Urology
DX: Z96.0 Presence of urogenital implants (principal); N39.3 Stress incontinence (female) (male); N39.0 Urinary tract infection, site not specified; Z68.34 Body mass index [BMI] 34.0-34.9, adult
CPT/HCPCS: 52310; 81002; 87077; 87086; 87186

== ENCOUNTER → 2024-11-02 11:20 | Outpatient (CLI) | payer MEDICARE, OTHER, SELFPAY ==
[2024-01-05 13:22] VITALS: BMI 35.1
== END ==
PROVIDERS: Family Provider Family Medicine; PCP Family Medicine; Visit Provider Urology
DX: C67.9 Malignant neoplasm of bladder, unspecified (principal); N30.00 Acute cystitis without hematuria; N39.3 Stress incontinence (female) (male)
CPT/HCPCS: 52000; 81002; 87077; 87086; 87186

== ENCOUNTER → 2024-12-15 11:46 | Outpatient (CLI) | payer MEDICARE, OTHER, SELFPAY ==
[2024-01-05 13:22] VITALS: BMI 35.1
[2024-12-15 12:56] LABS: Alanine Aminotransferase 20 IU/L (<50); Albumin 4.4 g/dL (3.5-5.0); Albumin Globulin Ratio 1.6 (1.0-2.8); Alkaline Phosphatase 137 U/L (38-126); Blood Urea Nitrogen 19 mg/dL (9-20); Calcium 10.3 mg/dL (8.4-10.2); Carbon Dioxide 31 mmol/L (22-32); Chloride 98 mmol/L (98-107); Cholesterol 137 mg/dL (140-199); Estimated Glomerular Filt Rate > 60 mL/min (>60); Globulin 2.7 g/dL (1.7-4.1); Glucose 102 mg/dL (70-99); HDL Cholesterol 61 mg/dL (40-60); HEMOLYSIS < 15 (0-50); Potassium 3.8 mmol/L (3.4-5.1); Sodium 136 mmol/L (137-145); Total Protein 7.1 g/dL (6.3-8.2); Triglycerides 123 mg/dL (35-150)
== END ==
PROVIDERS: PCP Family Medicine; Referring Provider Family Medicine; Visit Provider Family Medicine
DX: Z00.00 Encounter for general adult medical examination without abnormal findings (principal); I11.0 Hypertensive heart disease with heart failure; I50.22 Chronic systolic (congestive) heart failure; J44.9 Chronic obstructive pulmonary disease, unspecified; I48.21 Permanent atrial fibrillation
CPT/HCPCS: 36415; 80053; 80061

== ENCOUNTER → 2025-02-06 11:10 | Outpatient (CLI) | payer MEDICARE, OTHER, SELFPAY ==
[2024-01-05 13:22] VITALS: BMI 35.1
== END ==
PROVIDERS: PCP Family Medicine; Visit Provider Urology
DX: C67.9 Malignant neoplasm of bladder, unspecified (principal); R39.9 Unspecified symptoms and signs involving the genitourinary system; N39.3 Stress incontinence (female) (male); Z68.33 Body mass index [BMI] 33.0-33.9, adult
CPT/HCPCS: 52000; 81002; 87077; 87086; 87186; 99213